=== PATIENT | female | born 1955 | race Caucasian/White ===

== ENCOUNTER 2016-09-30 16:13 | Emergency (ER) | payer OTHER ==
[~2016-09-30] VITALS: Ht 160 cm; Wt 110.7 kg
[~2016-09-30 16:13] MED LIST: ALPR1TAB6 PO; AMIT25TA PO; AMLO5TAB2 PO; ATOR40TA59 PO; BUDE10.2 IH; CARI350T PO; CARI350T14 PO; CEFP100T PO; CLIN-44 PO; CYAN10002 IJ; DOXY100C14 PO; ERYT1OIN6 EACHEYE; EZET10TA3 PO; FLUO40CA2 PO; FLUT16SP NS; HYDR1TAB26 PO; LIDOCAINE TOPICAL TOP; MELA1TAB11 PO; METO25TA9 PO; NICO1PAT25 TD; OMEP20TA PO; OXYC-323 PO; OXYC15TA PO; PRED20TA PO; Promethazine Hcl/Codeine PO; SODI1TAB11 PO; SULF15DR5 EACHEYE; SULF1TAB24 PO; TEMA30CA PO; VENTOLIN HFA18 GM IH; VENTOLIN HFA18 GM INH; WARF1TAB PO; ZOLP5TAB5 PO
[2016-09-30] MEDS ORDERED: LIDOCAINE 1%/EPI 1:100,000 20 ML VIAL. INJ ONE (17:30)
[2016-09-30] MEDS ORDERED: OXYCODONE IR 5 MG TABLET. PO ONE (18:45)
[2016-09-30 19:00] VITALS: BP 106/54
--- NOTE | 2016-09-30 19:02 | PHYS DOC ---
Past Medical History Past Medical History: CAD, Cancer, [place] Additional Past Medical Histor: CARDIAC ISSUES, RADIATION AND CHEMO FOR RIGHT LUNG CA Past Surgical History: Coronary Bypass Surgery, Knee Replacement Alcohol Use: None Drug Use: None Adult General Chief Complaint Chief Complaint: MECHANICAL FALL HPI HPI Patient is a 61 year old female who presents with for left elbow and forearm lacerations, pain and bleeding; and bilateral knee pain after trip and fall at a store. She tripped on a floor mat. She notes pain to bilateral anterior knees that are achy, constant; but she was able to walk without difficulty. She notes falling into a wall and hitting her forehead and right shoulder, but has no headache or shoulder pain. She denies LOC, neck pain, vision changes, dizziness, back pain, chest pain, dyspnea, numbness, tingling, weakness. Tdap up to date. Review of Systems Review of Systems Constitutional: Denies fever or chills [] Eyes: Denies change in visual acuity, redness, or eye pain [] HENT: Denies nasal congestion or sore throat [] Respiratory: Denies cough or shortness of breath [] Cardiovascular: No additional information not addressed in HPI [] GI: Denies abdominal pain, nausea, vomiting, bloody stools or diarrhea [] : Denies dysuria or hematuria [] Musculoskeletal: Denies back pain or joint pain [] Integument: Denies rash or skin lesions [] Neurologic: Denies headache, focal weakness or sensory changes [] Endocrine: Denies polyuria or polydipsia [] Current Medications Current Medications Current Medications Medications (Trade) Dose Ordered Sig/Claudette Start Time Stop Time Status Last Admin Dose Admin Lidocaine/ Epinephrine (Xylocaine 1%-Epi 1:100,000) 20 ml 1X ONCE 09/30/16 17:30 09/30/16 17:31 DC 09/30/16 18:21 20 ML Oxycodone HCl (Roxicodone) 5 mg 1X ONCE 09/30/16 18:45 09/30/16 18:46 DC 09/30/16 18:41 5 MG Allergies Allergies Allergies Coded Allergies Type Severity Reaction Last Updated Verified tramadol Allergy Severe Seizures 09/04/16 Yes Sulfa (Sulfonamide Antibiotics) Allergy Intermediate Itching & GI upset Yes lorazepam Allergy Intermediate Hives 09/04/16 Yes propoxyphene napsylate Allergy Intermediate Hives & GI upset 09/04/16 Yes I S O L A T I O N *CONTACT* Allergy Unknown 09/04/16 Yes morphine Adverse Reaction Severe 09/04/16 Yes fluticasone propionate Adverse Reaction Intermediate Anxious 09/04/16 Yes ibuprofen Adverse Reaction Intermediate NAUSEA/VOMITING 09/04/16 Yes salmeterol xinafoate Adverse Reaction Intermediate Anxious 09/04/16 Yes Physical Exam Physical Exam Constitutional: Well developed, well nourished, no acute distress, non-toxic appearance. [] HENT: Normocephalic, atraumatic, bilateral external ears normal, oropharynx moist, no oral exudates, nose normal. [] Eyes: PERRLA, EOMI, conjunctiva normal, no discharge. [] Neck: Normal range of motion, no tenderness, supple. [] Cardiovascular:Heart rate regular rhythm [] Lungs & Thorax: Bilateral breath sounds clear to auscultation [] Abdomen: Bowel sounds normal, soft, no tenderness. [] Skin: Warm, dry, no erythema, no rash. [] Back: No tenderness, no CVA tenderness. [] Extremities: No bony tenderness, ROM intact at all joints. Has some ecchymosis to left anterior knee and left elbow. Left forearm with 4 cm of abrasion overlying 2 cm gaping laceration, left elbow with 4cm L shaped laceration. Intact distal pulses. Sensation intact to light touch in all 4 limbs grossly. Neurologic: Alert and oriented X 3, normal motor function, normal sensory function, no focal deficits noted. Ambulatory with a steady gait. [] Psychologic: Affect normal, judgement normal, mood normal. [] Current Patient Data Vital Signs Vital Signs Date Time Temp Pulse Resp B/P Pulse Ox O2 Delivery O2 Flow Rate FiO2 09/30/16 19:00 86 20 106/54 97 Room Air 09/30/16 16:13 97.8 97.8 Course & Med Decision Making Course & Med Decision Making Pertinent Labs and Imaging studies reviewed. (See chart for details) Lacerations repaired without complication. Recommended CT head for minor head injury, but she refused. Anticipatory guidance given for wound care and likely development of delayed onset muscle soreness. Encouraged close follow up. Strict return precautions given. She understands and agrees with plan. Irma Disclaimer Irma Disclaimer This electronic medical record was generated, in whole or in part, using a voice recognition dictation system. Laceration Repair Lac Repair Indication: Left elbow and left forearm lacerations Procedure: The patient was placed in the appropriate position and anesthesia around the elbow laceration was 4ml lidocaine with epinephrine, forearm laceration was 4 mL lidocaine with epinephrine. The area was then cleaned with pressure normal saline. The elbow laceration was closed with 4 simple interrupted sutures, Vicryl 3-0. The forearm laceration was closed with 3 simple interrupted sutures, Vicryl 3-0. The wound area was then dressed with nonadherent bandage. Total repaired wound length: 4 cm left elbow laceration; 2 cm left forearm laceration. The patient tolerated the procedure well. Complications: none. Departure Departure Impression: Primary Impression: Laceration of elbow Additional Impressions: Laceration of forearm Closed head injury Contusion, knee Disposition: 01 HOME, SELF-CARE Condition: STABLE Referrals: BARBY MARIE MD (PCP) Patient Instructions: Sutured Wound Care, [id number] Additional Instructions: Your stitches need to be removed within 14 days. Follow-up with your primary care doctor. Return for any concerns. Problem Qualifiers Primary Impression: Laceration of elbow Encounter type: initial encounter Laterality: left Qualified Code: S51.012A - Laceration without foreign body of left elbow, initial encounter Additional Impressions: Laceration of forearm Encounter type: initial encounter Laterality: left Qualified Code: S51.812A - Laceration without foreign body of left forearm, initial encounter Closed head injury Encounter type: initial encounter Qualified Code: S09.90XA - Unspecified injury of head, initial encounter Contusion, knee Encounter type: initial encounter Laterality: unspecified laterality Qualified Code: S80.00XA - Contusion of unspecified knee, initial encounter Ruth CAMACHO MD Sep 30, 2016 19:02
== END 2016-09-30 19:15 | disposition home or self-care (01) ==
LOC: EDSEX 16:13 → ER 16:13
DX: S51.012A Laceration without foreign body of left elbow, initial encounter (principal); S51.812A Laceration without foreign body of left forearm, initial encounter; S80.02XA Contusion of left knee, initial encounter; S09.90XA Unspecified injury of head, initial encounter; I25.10 Atherosclerotic heart disease of native coronary artery without angina pectoris; I25.2 Old myocardial infarction; Z95.1 Presence of aortocoronary bypass graft; W01.0XXA Fall on same level from slipping, tripping and stumbling without subsequent striking against object, initial encounter; Y93.89 Activity, other specified; Y99.8 Other external cause status; Y92.89 Other specified places as the place of occurrence of the external cause; Z88.2 Allergy status to sulfonamides; Z88.6 Allergy status to analgesic agent; Z88.5 Allergy status to narcotic agent; Z88.8 Allergy status to other drugs, medicaments and biological substances; Z91.041 Radiographic dye allergy status
CPT/HCPCS: 12002; 99284; J3490

== ENCOUNTER → 2016-10-27 | Outpatient (CLI) | payer OTHER ==
[~2016-10-27] VITALS: Ht 160 cm; Wt 108.9 kg
[~2016-10-27] MED LIST changes: +ALBU2.5V14 NEB; +BUPIVACAINE 0.5% 50 ML VIAL. INJ ONE; +IOHEXOL 300 MG/ML 10ML VIAL. IJ ONE; +MULT-208 PO; -WARF1TAB PO; +WARF1TAB74 PO; +methylPREDNISolone ACETATE 80 MG/ML VIAL. IM ONE; +potassium PO
[2016-10-27 12:19] VITALS: BP 123/62
--- NOTE | 2016-10-27 15:05 | RAD ---
Fluoroscopically guided right hip joint injection, 10/27/2016: History: Hip pain Under local anesthesia, aseptic conditions and fluoroscopic guidance a 22-gauge spinal needle was passed into the right hip joint via an anterior approach. A small amount of iodinated contrast material was injected to confirm intra-articular positioning following which 80 mg of Depo-Medrol mixed with 4 cc of 0.5% Sensorcaine was injected into the joint as requested. The spinal needle was then removed and hemostasis obtained. One fluoroscopic spot image was recorded. 0.6 minutes of fluoroscopy time were utilized. The patient tolerated the procedure well and left the department in good condition.
--- NOTE | 2016-10-27 15:32 | RAD ---
DATE: 10/27/2016 EXAM: DIGITAL SCREEN BILAT W/CAD HISTORY: Routine screening COMPARISON: None available this is dictated as a baseline exam. This study was interpreted with the benefit of Computerized Aided Detection (CAD). FINDINGS: Breast Density: FATTY The Breast Parenchyma is primarily fatty replaced. Breast parenchyma level density A.. There are no dominant suspicious masses, suspicious microcalcifications or evidence of architectural distortion. Benign-appearing calcification identified in the right breast IMPRESSION: Benign findings BI-RADS CATEGORY: 2 BENIGN FINDING RECOMMENDED FOLLOW-UP: 12M 12 MONTH FOLLOW-UP PQRS compliance statement: Patient information was entered into a reminder system with a target due date 10/27/2017 for the next mammogram. Mammography is a sensitive method for finding small breast cancers, but it does not detect them all and is not a substitute for careful clinical examination. A negative mammogram does not negate a clinically suspicious finding and should not result in delay in biopsying a clinically suspicious abnormality. "Our facility is accredited by the [employer] Mammography Program."
== END | disposition home or self-care (01) ==
LOC: RAD 16:04
PROVIDERS: ATTEND Internal Medicine
DX: Z12.31 Encounter for screening mammogram for malignant neoplasm of breast (principal); M25.551 Pain in right hip
CPT/HCPCS: 20610; 77002; G0202; J1040; J3490; Q9967; 77067

== ENCOUNTER → 2017-06-15 | Outpatient (CLI) | payer MEDICARE, OTHER | END | disposition home or self-care (01) | LOC: CT 14:09 | DX: C34.90 Malignant neoplasm of unspecified part of unspecified bronchus or lung (principal); C34.92 Malignant neoplasm of unspecified part of left bronchus or lung (principal); I25.10 Atherosclerotic heart disease of native coronary artery without angina pectoris; J47.9 Bronchiectasis, uncomplicated; J90 Pleural effusion, not elsewhere classified; M47.899 Other spondylosis, site unspecified | CPT/HCPCS: 71250 ==

== ENCOUNTER 2017-09-09 22:05 | Emergency (ER) | payer OTHER, MEDICARE ==
[2017-09-09 22:44] LABS: ADD MAN DIFF? NO
[2017-09-09 22:46] LABS: BASO # 0.1 x10^3/uL (0.0-0.2); BASO % 1 % (0-3); EOS # 0.2 x10^3/uL (0.0-0.7); EOS % 3 % (0-3); HEMATOCRIT 43.6 % (36.0-47.0); HEMOGLOBIN 14.3 g/dL (12.0-15.5); LYMPH # 1.3 x10^3/uL (1.0-4.8); LYMPH % 18 % (24-48); MEAN CORPUSCULAR HEMOGLOBIN 30 pg (25-35); MEAN CORPUSCULAR HGB CONC 33 g/dL (31-37); MEAN CORPUSCULAR VOLUME 90 fL (79-100); MONO # 0.5 x10^3/uL (0.0-1.1); MONO % 7 % (0-9); NEUT # 5.4 x10^3uL (1.8-7.7); NEUT % 72 % (31-73); PLATELET COUNT 307 x10^3/uL (140-400); RED BLOOD COUNT 4.85 x10^6/uL (3.50-5.40); RED CELL DISTRIBUTION WIDTH 14.3 % (11.5-14.5); WHITE BLOOD COUNT 7.5 x10^3/uL (4.0-11.0)
[2017-09-09 22:57] LABS: ANION GAP 10 (6-14); BLOOD UREA NITROGEN 10 mg/dL (7-20); BUN/CREATININE RATIO 11 (6-20); CALCIUM 8.9 mg/dL (8.5-10.1); CARBON DIOXIDE 30 mmol/L (21-32); CHLORIDE 102 mmol/L (98-107); CREATININE 0.9 mg/dL (0.6-1.0); GFR 63.7; GLUCOSE 101 mg/dL (70-99); POTASSIUM 4.1 mmol/L (3.5-5.1); SODIUM 142 mmol/L (136-145)
[2017-09-09 23:02] LABS: ETHANOL < 10 mg/dL (0-10)
[2017-09-09 23:03] LABS: ALBUMIN 3.4 g/dL (3.4-5.0); ALBUMIN/GLOBULIN RATIO 0.9 (1.0-1.7); ALK PHOS 146 U/L (46-116); ALT (SGPT) 29 U/L (14-59); AST (SGOT) 21 U/L (15-37); TOTAL BILIRUBIN 0.3 mg/dL (0.2-1.0)
[2017-09-09 23:06] LABS: TROPONINI < 0.017 ng/mL (0.000-0.055)
[2017-09-09 23:15] LABS: BARBITURATES NEG (NEG); BENZODIAZEPINES POS (NEG); CANNABINOIDS NEG (NEG); COCAINE NEG (NEG); METHADONE NEG (NEG); OPIATES NEG (NEG); PHENCYCLIDINE NEG (NEG)
[2017-09-09 23:19] LABS: AMPHETAMINE/METHAMPHETAMINE NEG (NEG); ETHANOL, URINE NEG (NEG)
[2017-09-09 23:20] LABS: CKMB MASS < 0.5 ng/mL (0.0-3.6); CREATINE KINASE 62 U/L (26-192)
[2017-09-09 23:20] LABS: NT-PRO BNP 446 pg/mL (0-124)
[2017-09-09 23:29] LABS: BILIRUBIN,URINE NEGATIVE (NEG); CLARITY,URINE CLOUDY; COLOR,URINE YELLOW; GLUCOSE,URINE NEGATIVE (NEG); NITRITE,URINE POSITIVE (NEG); PH,URINE 6.5; PROTEIN,URINE NEGATIVE (NEG-TRACE); UROBILINOGEN,URINE 0.2 mg/dL (0.2 mg/dL)
[2017-09-09 23:34] LABS: BACTERIA,URINE MANY /HPF (0-FEW); RBC,URINE 0 /HPF (0-2); SQUAMOUS EPITHELIAL CELL,UR FEW /LPF
[2017-09-10 08:51] LABS: TROPONIN BY ISTAT 0.01 ng/ml (<0.08)
== END 2017-09-10 00:02 | disposition home or self-care (01) ==
LOC: ER 09-10 00:02
DX: S00.83XA Contusion of other part of head, initial encounter (principal); G89.29 Other chronic pain; R68.84 Jaw pain; M25.531 Pain in right wrist; M25.551 Pain in right hip; M25.561 Pain in right knee; I25.10 Atherosclerotic heart disease of native coronary artery without angina pectoris; J44.9 Chronic obstructive pulmonary disease, unspecified; F17.210 Nicotine dependence, cigarettes, uncomplicated; Z95.1 Presence of aortocoronary bypass graft; Z88.2 Allergy status to sulfonamides; Z88.5 Allergy status to narcotic agent; Z88.8 Allergy status to other drugs, medicaments and biological substances; Z91.041 Radiographic dye allergy status; W01.0XXA Fall on same level from slipping, tripping and stumbling without subsequent striking against object, initial encounter; Y93.89 Activity, other specified; Y99.8 Other external cause status; Y92.89 Other specified places as the place of occurrence of the external cause
CPT/HCPCS: 36415; 51701; 70450; 70486; 71045; 72125; 73110; 80053; 80307; 81001; 82553; 83880; 84484; 85025; 87086; 87186; 93005; 99285-25; G0480

== ENCOUNTER → 2017-12-11 | Outpatient (CLI) | payer OTHER | END | disposition home or self-care (01) | LOC: US 12:46 | DX: E04.2 Nontoxic multinodular goiter (principal); I10 Essential (primary) hypertension; E78.5 Hyperlipidemia, unspecified | CPT/HCPCS: 76536 ==

== ENCOUNTER 2018-03-10 02:00 | Inpatient (IN) | payer OTHER ==
[~2018-03-10] VITALS: Ht 165.1 cm; Wt 126.6 kg
[~2018-03-10 02:00] MED LIST changes: -ALBUTEROL SULFATE 2.5 MG/3 ML NEBU. ONE; -ALPR0.5T PO; -DOXE10CA PO; -DOXY100C2 PO; -IPRATROPIUM BROMIDE 0.5 MG/2.5 ML NEBU. ONE; -MIRT15TA3 PO; -PRED50TA PO; -vitamin b12
[2018-03-10 02:52] LABS: BASO # 0.1 x10^3/uL (0.0-0.2); BASO % 1 % (0-3); EOS # 0.2 x10^3/uL (0.0-0.7); EOS % 3 % (0-3); HEMATOCRIT 29.2 % (36.0-47.0); HEMOGLOBIN 9.3 g/dL (12.0-15.5); LYMPH # 0.8 x10^3/uL (1.0-4.8); LYMPH % 11 % (24-48); MEAN CORPUSCULAR HEMOGLOBIN 25 pg (25-35); MEAN CORPUSCULAR HGB CONC 32 g/dL (31-37); MEAN CORPUSCULAR VOLUME 78 fL (79-100); MONO # 0.5 x10^3/uL (0.0-1.1); MONO % 6 % (0-9); NEUT # 6.3 x10^3uL (1.8-7.7); NEUT % 80 % (31-73); PLATELET COUNT 306 x10^3/uL (140-400); RED BLOOD COUNT 3.77 x10^6/uL (3.50-5.40); RED CELL DISTRIBUTION WIDTH 16.5 % (11.5-14.5); WHITE BLOOD COUNT 7.9 x10^3/uL (4.0-11.0)
[2018-03-10] MEDS ORDERED: ALBUTEROL SULFATE 2.5 MG/3 ML NEBU. CONT NEB ONE (03:00)
[2018-03-10] MEDS ORDERED: IPRATROPIUM BROMIDE 0.5 MG/2.5 ML NEBU. NEB ONE (03:00)
[2018-03-10 03:03] LABS: CALCIUM 8.5 mg/dL (8.5-10.1); CREATININE 0.8 mg/dL (0.6-1.0); GFR 72.9; POTASSIUM 3.5 mmol/L (3.5-5.1)
[2018-03-10 03:09] LABS: ALBUMIN/GLOBULIN RATIO 0.8 (1.0-1.7); TOTAL BILIRUBIN 0.3 mg/dL (0.2-1.0); TOTAL PROTEIN 6.6 g/dL (6.4-8.2)
[2018-03-10 03:53] LABS: BASE EXCESS ABG 5 mmol/L (-3-3); HCO3 ABG 30 mmol/L (21-28); PCO2 ABG 51 mmHg (35-46); PO2 ABG 87 mmHg (65-108); SAT O2 ABG 96 % (92-99)
[2018-03-10] MEDS ORDERED: FUROSEMIDE 40 MG/4 ML VIAL. IVP ONE (04:00)
[2018-03-10] MEDS ORDERED: ONDANSETRON PF 4 MG/2 ML VIAL. IV PRN (04:00)
[2018-03-10 04:04] LABS: FIO2 ABG 28
[2018-03-10] MEDS ORDERED: ONDANSETRON PF 4 MG/2 ML VIAL. IV ONE (04:30)
[2018-03-10] MEDS ORDERED: fentaNYL PF VIAL 100 MCG/2 ML VIAL IV ONE (04:30)
--- NOTE | 2018-03-10 04:34 | PHYS DOC ---
Past Medical History Past Medical History: CAD, Cancer, [place] Additional Past Medical Histor: CARDIAC ISSUES, RADIATION AND CHEMO FOR RIGHT LUNG CA, CHRONIC BACK PAIN Past Surgical History: Coronary Bypass Surgery, Knee Replacement Alcohol Use: None Drug Use: None Adult General Chief Complaint Chief Complaint: SHORTNESS OF BREATH HPI HPI Patient is a 62 year old female with history of COPD, congestive heart failure and remote history of lung cancer presents with progressive shortness of breath , productive cough yellow sputum dyspnea with exertion while supine for the past 2 days. denies nausea, vomiting, fever chills and sweats. Denies increased leg pain or swelling. Patient is an occasional smoker. Limited improvement with inhalers at home.[] Review of Systems Review of Systems ROS asp erp HPI All other systems were reviewed and found to be within normal limits, except as documented in this note. Current Medications Current Medications Current Medications Medications (Trade) Dose Ordered Sig/Claudette Start Time Stop Time Status Last Admin Dose Admin Albuterol Sulfate (Ventolin Neb Soln) 10 mg 1X ONCE 03/10/18 03:00 03/10/18 03:01 DC 03/10/18 03:00 10 MG Albuterol/ Ipratropium (Duoneb) 3 ml RTQID 03/10/18 08:00 03/11/18 07:59 Fentanyl Citrate (Fentanyl 2ml Vial) 25 mcg 1X ONCE 03/10/18 04:30 03/10/18 04:31 Furosemide (Lasix) 20 mg [id number] 03/10/18 09:00 Ipratropium Foss (Atrovent) 1 mg 1X ONCE 03/10/18 03:00 03/10/18 03:01 DC 03/10/18 03:00 1 MG Ondansetron HCl (Zofran) 4 mg 1X ONCE 03/10/18 04:30 03/10/18 04:31 Allergies Allergies Allergies Coded Allergies Type Severity Reaction Last Updated Verified tramadol Allergy Severe Seizures 09/04/16 Yes Sulfa (Sulfonamide Antibiotics) Allergy Intermediate Itching & GI upset Yes lorazepam Allergy Intermediate Hives 09/04/16 Yes propoxyphene napsylate Allergy Intermediate Hives & GI upset 09/04/16 Yes I S O L A T I O N *CONTACT* Allergy Unknown 09/04/16 Yes morphine Adverse Reaction Severe 09/04/16 Yes fluticasone propionate Adverse Reaction Intermediate Anxious 09/04/16 Yes ibuprofen Adverse Reaction Intermediate NAUSEA/VOMITING 09/04/16 Yes salmeterol xinafoate Adverse Reaction Intermediate Anxious 09/04/16 Yes Physical Exam Physical Exam Constitutional: Well developed, well nourished, no acute distress, non-toxic appearance. [] HENT: Normocephalic, atraumatic, bilateral external ears normal, oropharynx moist, no oral exudates, was hoarseness. [] Eyes: PERRLA, EOMI, conjunctiva normal, no discharge. [] Neck: Normal range of motion, no tenderness, supple, no stridor. [] Cardiovascular:Heart rate regular rhythm, no murmur [] Lungs & Thorax:, Mild tachypnea, diminished coarse breath sounds bilaterally with inspiratory and expiratory wheezes.[] Abdomen: Bowel sounds normal, soft, no tenderness, no masses, no pulsatile masses. [] Skin: Warm, dry, no erythema, no rash. [] Back: No tenderness, no CVA tenderness. [] Extremities: No tenderness, no cyanosis, no clubbing, ROM intact, no edema. [] Neurologic: Alert and oriented X 3, normal motor function, normal sensory function, no focal deficits noted. [] Psychologic: Affect normal, judgement normal, mood normal. [] Current Patient Data Vital Signs Vital Signs Date Time Temp Pulse Resp B/P (MAP) Pulse Ox O2 Delivery O2 Flow Rate FiO2 03/10/18 03:07 97 Nasal Cannula 2.0 03/10/18 02:15 97.8 85 20 118/60 (79) 97.8 Lab Values Laboratory Tests Test 03/10/18 02:20 03/10/18 02:42 White Blood Count 7.9 x10^3/uL (4.0-11.0) Red Blood Count 3.77 x10^6/uL (3.50-5.40) Hemoglobin 9.3 g/dL (12.0-15.5) L Hematocrit 29.2 % (36.0-47.0) L Mean Corpuscular Volume 78 fL (79-100) L Mean Corpuscular Hemoglobin 25 pg (25-35) Mean Corpuscular Hemoglobin Concent 32 g/dL (31-37) Red Cell Distribution Width 16.5 % (11.5-14.5) H Platelet Count 306 x10^3/uL (140-400) Neutrophils (%) (Auto) 80 % (31-73) H Lymphocytes (%) (Auto) 11 % (24-48) L Monocytes (%) (Auto) 6 % (0-9) Eosinophils (%) (Auto) 3 % (0-3) Basophils (%) (Auto) 1 % (0-3) Neutrophils # (Auto) 6.3 x10^3uL (1.8-7.7) Lymphocytes # (Auto) 0.8 x10^3/uL (1.0-4.8) L Monocytes # (Auto) 0.5 x10^3/uL (0.0-1.1) Eosinophils # (Auto) 0.2 x10^3/uL (0.0-0.7) Basophils # (Auto) 0.1 x10^3/uL (0.0-0.2) Sodium Level 145 mmol/L (136-145) Potassium Level 3.5 mmol/L (3.5-5.1) Chloride Level 104 mmol/L (98-107) Carbon Dioxide Level 33 mmol/L (21-32) H Anion Gap 8 (6-14) Blood Urea Nitrogen 12 mg/dL (7-20) Creatinine 0.8 mg/dL (0.6-1.0) Estimated GFR (Cockcroft-Gault) 72.9 BUN/Creatinine Ratio 15 (6-20) Glucose Level 99 mg/dL (70-99) Lactic Acid Level 0.9 mmol/L (0.4-2.0) Calcium Level 8.5 mg/dL (8.5-10.1) Total Bilirubin 0.3 mg/dL (0.2-1.0) Aspartate Amino Transferase (AST) 18 U/L (15-37) Alanine Aminotransferase (ALT) 20 U/L (14-59) Alkaline Phosphatase 125 U/L (46-116) H Troponin I Quantitative < 0.017 ng/mL (0.000-0.055) VM-Jdx-V-Type Natriuretic Peptide 3250 pg/mL (0-124) H Total Protein 6.6 g/dL (6.4-8.2) Albumin 3.0 g/dL (3.4-5.0) L Albumin/Globulin Ratio 0.8 (1.0-1.7) L O2 Saturation 96 % (92-99) Arterial Blood pH 7.39 (7.35-7.45) Arterial Blood pCO2 at Patient Temp 51 mmHg (35-46) H Arterial Blood pO2 at Patient Temp 87 mmHg (65-108) Arterial Blood HCO3 30 mmol/L (21-28) H Arterial Blood Base Excess 5 mmol/L (-3-3) H FiO2 28 Laboratory Tests 03/10/18 02:20 Laboratory Tests 03/10/18 02:20 EKG EKG [EKG: Reviewed] Radiology/Procedures Radiology/Procedures [Chest x-ray: Cardiomegaly with pulmonary vascular congestion.] Course & Med Decision Making Course & Med Decision Making Pertinent Labs and Imaging studies reviewed. (See chart for details) [Lasix, steroids, breathing treatment given. Patient requiring oxygen will admit to Dr. Nair's service] Dragon Disclaimer Dragon Disclaimer This electronic medical record was generated, in whole or in part, using a voice recognition dictation system. Departure Departure Impression: Primary Impression: COPD with exacerbation Additional Impression: CHF exacerbation Disposition: ADMITTED INPATIENT Admitting Physician: Marco Nair Condition: STABLE Referrals: MARCO NAIR MD (PCP) Problem Qualifiers MARISELAKATHY REED Mar 10, 2018 04:34
[2018-03-10 05:16] VITALS: BP 128/65
[2018-03-10] MEDS: IPRATRPIUM/ALBUTEROL 0.5/2.5MG 3 ML NEBU. NEB SCH ×5 (05:57→21:30)
[2018-03-10 07:33] VITALS: BP 106/37
[2018-03-10] MEDS ORDERED: MIRT15TA3 PO (07:41)
[2018-03-10] MEDS ORDERED: ALPR0.5T PO (07:41)
[2018-03-10] MEDS ORDERED: vitamin b12 (07:41)
[2018-03-10] MEDS ORDERED: DOXE10CA PO (07:41)
[2018-03-10] MEDS ORDERED: FUROSEMIDE 20 MG/2 ML VIAL. IVP SCH (09:00)
[2018-03-10] MEDS ORDERED: NON FORMULARY ITEM (Budesonide/Formoterol Fumarate (Symbicort 160-4.5 Mcg Inhaler) 2 PUFF) IH SCH (10:45)
[2018-03-10] MEDS ORDERED: ONDANSETRON ODT 4 MG TAB.RAPDIS. PO PRN (10:45)
[2018-03-10] MEDS ORDERED: ALPRAZolam 0.5 MG TABLET PO PRN (10:45)
[2018-03-10] MEDS ORDERED: PROMETH/CODEINE 6.25/10MG 5 ML SYRUP. PO PRN (11:00)
[2018-03-10] MEDS ORDERED: ALBUTEROL SULFATE 2.5 MG/3 ML NEBU. NEB PRN (11:00)
[2018-03-10 11:17] VITALS: BP 112/43
[2018-03-10] MEDS: EZETIMIBE 10 MG TABLET. PO SCH (11:39)
[2018-03-10] MEDS: MULTIVITAMIN with MINERAL TABLET. PO SCH (11:40)
[2018-03-10] MEDS: ENOXAPARIN 40 MG/0.4 ML SYRINGE. SQ SCH ×2 (11:40→21:17)
[2018-03-10] MEDS: PANTOPRAZOLE 40 MG TABLET.DR. PO SCH (11:40)
[2018-03-10] MEDS: FLUoxetine HCL 20 MG CAPSULE PO SCH (11:40)
[2018-03-10] MEDS: METOPROLOL SUCC 24HR ER 25 MG TAB.ER.24H. PO SCH (11:40)
--- NOTE | 2018-03-10 12:09 | PDOC ---
Provider Note Provider Note Pt seen.H&P dictated. #[id number]. BARBY MARIE MD Mar 10, 2018 12:09
[2018-03-10] MEDS ORDERED: IPRATRPIUM/ALBUTEROL 0.5/2.5MG 3 ML NEBU. NEB PRN (12:15)
--- NOTE | 2018-03-10 14:09 | HP ---
ADMIT DATE: 03/10/2018 LOCATION: [facility]. REASON FOR ADMISSION TO THE HOSPITAL: Shortness of breath, cough and wheezing, COPD with exacerbation. HISTORY OF PRESENT ILLNESS: The patient is a 62-year-old female patient known to me who has chronic COPD and she has history of coronary artery disease, bypass surgery. She has history of lung cancer, radiation treatment 5 years ago. She still continues to smoke, has cough with green phlegm, came to the Emergency Room, was having short of breath, was given breathing treatment with some improvement. Chest x-ray was done, shows some questionable infiltrate in the lung, was admitted to the hospital. PAST MEDICAL HISTORY: History of COPD, coronary artery disease, lung cancer, heart attack in the past, anxiety, depression. PAST SURGICAL HISTORY: Knee replacement, heart bypass surgery, radiation for lung cancer. ALLERGIES: TO SULFA, FLUTICASONE, IBUPROFEN, LORAZEPAM, MORPHINE, DARVOCET, SALMETEROL XINAFOATE. MEDICATIONS AT HOME: Albuterol 4 times daily, Xanax 0.5 q.6h., atorvastatin 40 mg daily, budesonide twice a day, Soma 350 mg 3 times daily, Zetia 10 mg daily, fluoxetine 40 mg daily, metoprolol 25 mg daily, multivitamin daily, omeprazole 20 mg daily, Zofran for nausea, oxycodone 50 mg 3 times daily, potassium 10 mEq daily, Phenergan with codeine cough syrup p.r.n., mirtazapine and doxepin, I am not sure she is taking those. She is on home oxygen at nighttime. PERSONAL HISTORY: Smoked for at least 30 years, cutting down, still smokes occasionally. Denies alcohol or street drugs. The patient is on chronic narcotic pain medications. FAMILY HISTORY: Positive for heart disease, lung problems. REVIEW OF SYMPTOMS: CARDIAC: No chest pain. GASTROINTESTINAL: No nausea or vomiting. RESPIRATORY: Complains of cough, sputum, wheezing and low grade fever. Rest of her systems reviewed and negative. PHYSICAL EXAMINATION: VITAL SIGNS: At the time of admission shows temperature 97, pulse 85, respirations 20, blood pressure 118/60, 95% on room air on 2 liters. HEENT: Head is atraumatic. Pupils equal. Oral cavity, congestion posterior pharynx. NECK: Supple. Thyroid not enlarged. JVD not elevated. CHEST: Asymmetrical, scar of heart surgery. CARDIOVASCULAR: S1, S2. LUNGS: Bilateral wheezing, both inspiratory, expiratory mostly on the posterior lungs. ABDOMEN: Soft, no mass palpable. EXTERNAL GENITALIA: No Jarvis. RECTAL: Deferred. EXTREMITIES: No calf tenderness, no edema. Pulses 1+. NEUROLOGIC: Moving all extremities. No focal deficits noted. LABORATORY DATA: Shows a white count 8, hemoglobin 9, platelets 306. Electrolytes sodium 145, potassium 3.5, chloride 104, bicarb 33, BUN 12, creatinine 0.8, glucose 99. LFTs normal. BNP was 30-50, pH 7.39, pCO2 51, pO2 87, bicarbonate 30, 96 saturation. Chest x-ray done, report is pending. EKG not done. FINAL IMPRESSION: 1. Chronic obstructive pulmonary disease with acute exacerbation. 2. Chronic hypercapnic respiratory failure, stable. 3. Coronary artery disease, history of bypass surgery. 4. History of lung cancer, had radiation treatment. 5. Chronic smoker. 6. Hypertension. 7. Hyperlipidemia. 8. Anxiety, depression. 9. Elevated BNP,?chf PLAN: At this time, admit to hospital, hydrate with IV fluids. Sputum cultures. Start on Rocephin, IV Solu-Medrol, DuoNeb 4 times daily. DVT prevention with Lovenox and see how the patient's condition improves. Echo and cardiology consult. BARBY MARIE MD DR: AUBREY/eda JOB#: [id number] / [id number] SELAM
[2018-03-10] MEDS: cefTRIAXone IV Push 1 GM VIAL. IVP SCH (14:41)
[2018-03-10] MEDS: IV NORMAL SALINE 1000ML BAG 1,000 ML IV SCH (14:41)
[2018-03-10] MEDS: oxyCODONE IR 5 MG TABLET PO PRN (14:42)
[2018-03-10] MEDS: methylPREDNISolone SOD SUCC PF 40 MG/ML VIAL. IV SCH ×2 (14:42→21:16)
[2018-03-10] MEDS: LACTOBACILLUS RHAMNOSUS GG 1 CAPSULE. PO SCH ×2 (14:42→21:15)
[2018-03-10] MEDS: CARISOPRODOL 350 MG TABLET PO SCH ×2 (14:42→21:21)
--- NOTE | 2018-03-10 14:53 | RAD ---
Chest, PA and Lateral: Technique: PA and lateral views of the chest were obtained. History: Pneumonia. Comparison: 09/09/2017. Findings: Unchanged heart size. There are patchy airspace opacities identified in the right hilar region, left hilar region and in the left lung base likely atelectasis or infiltrates with mild prominent appearing bilateral interstitial lung markings. IMPRESSION: Prominent appearing interstitial lung markings identified in the bilateral lungs probably chronic interstitial changes with airspace opacities in the right hilar, left hilar and left lung base likely atelectasis or infiltrates. Follow-up to resolution. Electronically signed by: Refugio Harris MD (03/10/2018 2:49 PM) [facility]
[2018-03-10 15:09] VITALS: BP 111/36
--- NOTE | 2018-03-10 17:04 | EKG ---
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
[2018-03-10 19:16] VITALS: BP 119/67
[2018-03-10] MEDS: ATORVASTATIN CALCIUM 40 MG TABLET. PO SCH (21:15)
[2018-03-10 22:58] VITALS: BP 137/78
[2018-03-11] MEDS: IV NORMAL SALINE 1000ML BAG 1,000 ML IV SCH (01:50)
[2018-03-11 03:21] VITALS: BP 98/64
[2018-03-11 04:41] LABS: BASO % 0 % (0-3); EOS % 0 % (0-3); HEMATOCRIT 28.2 % (36.0-47.0); HEMOGLOBIN 8.8 g/dL (12.0-15.5); LYMPH # 0.3 x10^3/uL (1.0-4.8); LYMPH % 4 % (24-48); MEAN CORPUSCULAR HEMOGLOBIN 24 pg (25-35); MEAN CORPUSCULAR HGB CONC 31 g/dL (31-37); MEAN CORPUSCULAR VOLUME 78 fL (79-100); MONO # 0.1 x10^3/uL (0.0-1.1); MONO % 1 % (0-9); NEUT # 6.8 x10^3uL (1.8-7.7); NEUT % 94 % (31-73); PLATELET COUNT 298 x10^3/uL (140-400); WHITE BLOOD COUNT 7.2 x10^3/uL (4.0-11.0)
[2018-03-11 04:57] LABS: CALCIUM 8.2 mg/dL (8.5-10.1); CREATININE 0.9 mg/dL (0.6-1.0); GFR 63.7; POTASSIUM 4.5 mmol/L (3.5-5.1)
[2018-03-11] MEDS: methylPREDNISolone SOD SUCC PF 40 MG/ML VIAL. IV SCH ×3 (06:00→21:09)
[2018-03-11 07:00] VITALS: BP 174/67
[2018-03-11] MEDS: PANTOPRAZOLE 40 MG TABLET.DR. PO SCH (07:36)
[2018-03-11] MEDS: oxyCODONE IR 5 MG TABLET PO PRN ×2 (07:40→21:09)
[2018-03-11] MEDS: IPRATRPIUM/ALBUTEROL 0.5/2.5MG 3 ML NEBU. NEB SCH ×4 (07:58→20:21)
[2018-03-11] MEDS ORDERED: POTASSIUM PO SCH (09:00)
[2018-03-11] MEDS: MULTIVITAMIN with MINERAL TABLET. PO SCH (09:12)
[2018-03-11] MEDS: CARISOPRODOL 350 MG TABLET PO SCH ×3 (09:12→21:09)
[2018-03-11] MEDS: EZETIMIBE 10 MG TABLET. PO SCH (09:12)
[2018-03-11] MEDS: LACTOBACILLUS RHAMNOSUS GG 1 CAPSULE. PO SCH ×2 (09:12→21:08)
[2018-03-11] MEDS: FLUoxetine HCL 20 MG CAPSULE PO SCH (09:12)
[2018-03-11] MEDS: METOPROLOL SUCC 24HR ER 25 MG TAB.ER.24H. PO SCH (09:12)
[2018-03-11] MEDS: ENOXAPARIN 40 MG/0.4 ML SYRINGE. SQ SCH ×2 (09:13→21:10)
[2018-03-11 09:19] LABS: % BANDS 1 % (0-9); % LYMPHS 4 % (24-48); % MONOS 1 % (0-10); % SEGS 94 % (35-66); PLT ESTIMATE ADEQUATE (ADEQUATE)
[2018-03-11 09:20] LABS: HYPOCHROMIA PRESENT
--- NOTE | 2018-03-11 09:32 | PDOC ---
PROGRESS NOTES Subjective Subjective feels better today Objective Objective Vital Signs Date Time Temp Pulse Resp B/P (MAP) Pulse Ox O2 Delivery O2 Flow Rate FiO2 03/11/18 09:17 97 Nasal Cannula 2.0 03/11/18 09:12 94 174/67 03/11/18 07:00 97.9 24 97.9 Intake and Output 03/11/18 07:00 Intake Total 780 ml Output Total 600 ml Balance 180 ml Intake Oral 780 ml Output Urine Total 600 ml Physical Exam Abdomen: Normal bowel sounds, Soft Heart: Normal S2 Extremities: No clubbing General: Alert HEENT: Atraumatic Lungs: Other (wheezing) MUSCULOSKELETAL: No deformity Neck: No JVD Neuro: Normal speech Psych/Mental Status: Mental status NL Skin: No breakdown Diagnosis Problem List Problems Medical Problems: (1) CHF exacerbation Status: Acute (2) COPD with exacerbation Status: Acute Assessment Assessment Problems Medical Problems: (1) CHF exacerbation Status: Acute (2) COPD with exacerbation Status: Acute FINAL IMPRESSION: 1. Chronic obstructive pulmonary disease with acute exacerbation. 2. Chronic hypercapnic respiratory failure, stable. 3. Coronary artery disease, history of bypass surgery. 4. History of lung cancer, had radiation treatment. 5. Chronic smoker. 6. Hypertension. 7. Hyperlipidemia. 8. Anxiety, depression. 9. Fiona BNP, ?chf PLAN: ECHO today cardiology consult iv steroids duoneb. iv rocephin. pt/ot At this time, admit to hospital, hydrate with IV fluids. Sputum cultures. Start on Rocephin, IV Solu-Medrol, DuoNeb 4 times daily. DVT prevention with Lovenox and see how the patient's condition improves. Plan Plan of Care Problems Medical Problems: (1) CHF exacerbation Status: Acute (2) COPD with exacerbation Status: Acute Comment Review of Relevant I have reviewed the following items norberto (where applicable) has been applied. Labs Laboratory Tests Test 03/11/18 03:55 White Blood Count 7.2 x10^3/uL (4.0-11.0) Red Blood Count 3.60 x10^6/uL (3.50-5.40) Hemoglobin 8.8 g/dL (12.0-15.5) Hematocrit 28.2 % (36.0-47.0) Mean Corpuscular Volume 78 fL (79-100) Mean Corpuscular Hemoglobin 24 pg (25-35) Mean Corpuscular Hemoglobin Concent 31 g/dL (31-37) Red Cell Distribution Width 17.0 % (11.5-14.5) Platelet Count 298 x10^3/uL (140-400) Neutrophils (%) (Auto) 94 % (31-73) Lymphocytes (%) (Auto) 4 % (24-48) Monocytes (%) (Auto) 1 % (0-9) Eosinophils (%) (Auto) 0 % (0-3) Basophils (%) (Auto) 0 % (0-3) Neutrophils # (Auto) 6.8 x10^3uL (1.8-7.7) Lymphocytes # (Auto) 0.3 x10^3/uL (1.0-4.8) Monocytes # (Auto) 0.1 x10^3/uL (0.0-1.1) Eosinophils # (Auto) 0.0 x10^3/uL (0.0-0.7) Basophils # (Auto) 0.0 x10^3/uL (0.0-0.2) Segmented Neutrophils % 94 % (35-66) Band Neutrophils % 1 % (0-9) Lymphocytes % 4 % (24-48) Monocytes % 1 % (0-10) Platelet Estimate Adequate (ADEQUATE) Hypochromasia Present Sodium Level 143 mmol/L (136-145) Potassium Level 4.5 mmol/L (3.5-5.1) Chloride Level 105 mmol/L (98-107) Carbon Dioxide Level 26 mmol/L (21-32) Anion Gap 12 (6-14) Blood Urea Nitrogen 17 mg/dL (7-20) Creatinine 0.9 mg/dL (0.6-1.0) Estimated GFR (Cockcroft-Gault) 63.7 Glucose Level 195 mg/dL (70-99) Calcium Level 8.2 mg/dL (8.5-10.1) Medications Current Medications Albuterol Sulfate (Ventolin Neb Soln) 2.5 mg PRN Q6HRS PRN NEB SHORTNESS OF BREATH; Start 03/10/18 at 11:00 Albuterol/ Ipratropium (Duoneb) 3 ml RTQID PRN NEB SHORTNESS OF BREATH; Start 03/10/18 at 12:15; Status UNV Alprazolam (Xanax) 0.5 mg PRN Q6HRS PRN PO ANXIETY / AGITATION; Start 03/10/18 at 10:45 Atorvastatin Calcium (Lipitor) 40 mg HS PO Last administered on 03/10/18at 21:15 ; Start 03/10/18 at 21:00 Carisoprodol (Soma) 350 mg TID PO Last administered on 03/11/18 09:12; Start 03/10/18 at 14:00 Ceftriaxone Sodium 1 gm/ Dextrose 50 ml @ 100 mls/hr Q24H IV ; Start 03/10/18 at 12:00; Status UNV Ceftriaxone Sodium (Rocephin) 1 gm Q24H IVP Last administered on 03/10/18at 14: 41; Start 03/10/18 at 13:00 Enoxaparin Sodium (Lovenox 40mg Syringe) 40 mg Q12HR SQ Last administered on 09:13; Start 03/10/18 at 11:30 EZETIMIBE (Zetia) 10 mg DAILY PO Last administered on 03/11/18 09:12; Start at 11:30 Fluoxetine HCl (PROzac) 40 mg DAILY PO Last administered on 03/11/18 09:12; Start 03/10/18 at 11:30 Lactobacillus Rhamnosus (Culturelle) 1 cap BID PO Last administered on 09:12; Start 03/10/18 at 13:00 Methylprednisolone Sodium Succinate (SOLU-Medrol 40MG VIAL) 40 mg Q8HRS IV Last administered on 03/11/18at 06:00; Start 03/10/18 at 14:00 Metoprolol Succinate (Toprol Xl) 25 mg DAILY PO Last administered on 03/11/18 09:12; Start 03/10/18 at 11:30 Multivitamins (Thera M Plus) 1 tab DAILY PO Last administered on 03/11/18 09: 12; Start 03/10/18 at 11:30 Non-Formulary Medication (Budesonide/ Formoterol Fumarate (Symbicort 160-4.5 Mcg Inhaler)) 2 puff PRN BID IH ; Start 03/10/18 at 10:45; Status UNV Non-Formulary Medication ([potassium] ) 1 tab DAILY PO ; Start 03/11/18 at 09:00 ; Status UNV Ondansetron HCl (Zofran Odt) 4 mg PRN BID PRN PO NAUSEA/VOMITING; Start at 10:45 Oxycodone HCl (Roxicodone) 15 mg PRN TID PRN PO PAIN Last administered on at 07:40; Start 03/10/18 at 11:00 Pantoprazole Sodium (Protonix) 40 mg DAILYAC PO Last administered on 03/11/18at 07:36; Start 03/10/18 at 11:30 Promethazine HCl/ Codeine (Phenergan With Codeine Oral Syrup) 5 ml PRN Q6HRS PRN PO COUGH; Start 03/10/18 at 11:00 Sodium Chloride 1,000 ml @ 75 mls/hr [id number] IV Last administered on at 01:50; Start 03/10/18 at 12:30 Vitals/I & O Vital Sign - Last 24 Hours 03/10/18 03/10/18 03/10/18 03/10/18 11:15 11:17 11:40 14:42 Temp 97.9 97.9 Pulse 84 84 Resp 20 B/P (MAP) 112/43 (66) 112/43 Pulse Ox 92 92 O2 Delivery Nasal Cannula Nasal Cannula Nasal Cannula O2 Flow Rate 1.0 2.0 2.0 03/10/18 03/10/18 03/10/18 03/10/18 15:09 15:15 19:16 20:00 Temp 98.4 98.1 98.4 98.1 Pulse 93 82 Resp 22 18 B/P (MAP) 111/36 (61) 119/67 (84) Pulse Ox 93 96 O2 Delivery Nasal Cannula Nasal Cannula Nasal Cannula Nasal Cannula O2 Flow Rate 2.0 1.0 2.0 2.0 03/10/18 03/10/18 03/11/18 03/11/18 20:50 22:58 03:21 07:00 Temp 98.5 97.9 97.9 98.5 97.9 97.9 Pulse 80 94 94 Resp 18 18 24 B/P (MAP) 137/78 (97) 98/64 (75) 174/67 (102) Pulse Ox 96 96 96 91 O2 Delivery Nasal Cannula Room Air Nasal Cannula Nasal Cannula O2 Flow Rate 2.0 2.0 2.0 03/11/18 03/11/18 03/11/18 03/11/18 07:40 07:58 09:12 09:17 Pulse 94 B/P (MAP) 174/67 Pulse Ox 96 97 97 O2 Delivery Nasal Cannula Nasal Cannula Nasal Cannula O2 Flow Rate 2.0 2.0 2.0 Intake and Output 03/10/18 03/10/18 03/11/18 15:00 23:00 07:00 Intake Total 300 ml 480 ml Output Total 600 ml Balance -300 ml 480 ml BARBY MARIE MD Mar 11, 2018 09:32
[2018-03-11 11:00] VITALS: BP 114/51
--- NOTE | 2018-03-11 11:46 | PDOC2 ---
MICHAEL AGUILERA DYE MIXER 03/11/18 1146: CARDIAC CONSULT DATE OF CONSULT Date of Consult DATE: 03/11/18 TIME: 11:38 REASON FOR CONSULT Reason for Consult: CHF, History of CABG REFERRING PHYSICIAN Referring Physician: Dr. Nair SOURCE Source: Chart review, Patient HISTORY OF PRESENT ILLNESS HISTORY OF PRESENT ILLNESS This is a 62 yo female who presented with complaints of shortness of breath. Reports having an episode of nausea and vomiting last week; inhaled some emesis. Breathing has been worse since. SOA has been progressively worsening. Has cough productive of green sputum. Denies any fevers/chills, chest pain, dizziness, diaphoresis, or palpitations. Orthopnea at base. Despite history of COPD and lung CA s/p chemo and radiation, continues to smoke 1/2 ppd. Additionally, has a history of CAD s/p CABG in 1995. 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 Most recent cardiac workup noted in 2013. Reports bilateral lower extremity edema x 2 months along with fatigue. PAST MEDICAL HISTORY Cardiovascular: CAD (s/p CABG), CHF, HTN, MD, Hyperlipidemia Pulmonary: COPD, Other (lung CA s/p chemo and radiation) CENTRAL NERVOUS SYSTEM: Other (no pertinent hx) GI: GERD Psych: Anxiety, Depression Musculoskeletal: Osteoarthritis Infectious disease: No pertinent hx ENT: No pertinent hx Renal/: No pertinent hx Endocrine: No pertinent hx Dermatology: No pertinent hx PAST SURGICAL HISTORY Past Surgical History: CABG (1995), Total hip replacement (left ), Total knee replacement (left ), Tonsillectomy FAMILY HISTORY Family History: High Cholestrol, Hypertension SOCIAL HISTORY Smoke: <1 pack per day ALCOHOL: none Drugs: None Lives: Alone (caregiver) CURRENT MEDICATIONS CURRENT MEDICATIONS Current Medications Medications (Trade) Dose Ordered Sig/Claudette Route PRN Reason Start Time Stop Time Status Last Admin Dose Admin Atorvastatin Calcium (Lipitor) 40 mg HS PO 03/10/18 21:00 03/10/18 21:15 Carisoprodol (Soma) 350 mg TID PO 03/10/18 14:00 03/11/18 09:12 Methylprednisolone Sodium Succinate (SOLU-Medrol 40MG VIAL) 40 mg Q8HRS IV 03/10/18 14:00 03/11/18 06:00 Sodium Chloride 1,000 ml @ 75 mls/hr [id number] IV 03/10/18 12:30 03/11/18 14:00 03/11/18 01:50 Ceftriaxone Sodium (Rocephin) 1 gm Q24H IVP 03/10/18 13:00 03/10/18 14:41 Lactobacillus Rhamnosus (Culturelle) 1 cap BID PO 03/10/18 13:00 03/11/18 09:12 ALLERGIES ALLERGIES: Coded Allergies: tramadol (Verified Allergy, Severe, Seizures, 09/04/16) Tolerates morphine, hydromorphone, and oxycodone Sulfa (Sulfonamide Antibiotics) (Verified Allergy, Intermediate, Itching & GI upset, 09/04/16) lorazepam (Verified Allergy, Intermediate, Hives, 09/04/16) propoxyphene napsylate (Verified Allergy, Intermediate, Hives & GI upset, 09/04/16) I S O L A T I O N *CONTACT* (Verified Allergy, Unknown, 09/04/16) ESBL + morphine (Verified Adverse Reaction, Severe, 09/04/16) Seizures fluticasone propionate (Verified Adverse Reaction, Intermediate, Anxious, 09/04/16) ibuprofen (Verified Adverse Reaction, Intermediate, NAUSEA/VOMITING, ) salmeterol xinafoate (Verified Adverse Reaction, Intermediate, Anxious, ) ROS Review of System 14 point ROS conducted with pertinent positives noted above in HPI. PHYSICAL EXAM General: Alert, Oriented X3, Cooperative, No acute distress HEENT: Atraumatic, Mucous membr. moist/pink Lungs: Other (expiratory wheezes throughout) Heart: Regular rate, Normal S1, Normal S2, Other (2/6 systolic murmur) Abdomen: Soft, No tenderness, Other (obese) Extremities: Normal pulses, Other (trace bilateral LE edema) Skin: No significant lesion Neuro: Normal speech, Sensation intact Psych/Mental Status: Mental status NL, Mood NL MUSCULOSKELETAL: No deformity VITALS VITALS Vital Signs Date Time Temp Pulse Resp B/P (MAP) Pulse Ox O2 Delivery O2 Flow Rate FiO2 03/11/18 11:00 98.0 82 20 114/51 (72) 96 Nasal Cannula 2.0 98.0 LABS Lab: Laboratory Tests Test 03/11/18 03:55 White Blood Count 7.2 x10^3/uL (4.0-11.0) Red Blood Count 3.60 x10^6/uL (3.50-5.40) Hemoglobin 8.8 g/dL (12.0-15.5) Hematocrit 28.2 % (36.0-47.0) Mean Corpuscular Volume 78 fL (79-100) Mean Corpuscular Hemoglobin 24 pg (25-35) Mean Corpuscular Hemoglobin Concent 31 g/dL (31-37) Red Cell Distribution Width 17.0 % (11.5-14.5) Platelet Count 298 x10^3/uL (140-400) Neutrophils (%) (Auto) 94 % (31-73) Lymphocytes (%) (Auto) 4 % (24-48) Monocytes (%) (Auto) 1 % (0-9) Eosinophils (%) (Auto) 0 % (0-3) Basophils (%) (Auto) 0 % (0-3) Neutrophils # (Auto) 6.8 x10^3uL (1.8-7.7) Lymphocytes # (Auto) 0.3 x10^3/uL (1.0-4.8) Monocytes # (Auto) 0.1 x10^3/uL (0.0-1.1) Eosinophils # (Auto) 0.0 x10^3/uL (0.0-0.7) Basophils # (Auto) 0.0 x10^3/uL (0.0-0.2) Segmented Neutrophils % 94 % (35-66) Band Neutrophils % 1 % (0-9) Lymphocytes % 4 % (24-48) Monocytes % 1 % (0-10) Platelet Estimate Adequate (ADEQUATE) Hypochromasia Present Sodium Level 143 mmol/L (136-145) Potassium Level 4.5 mmol/L (3.5-5.1) Chloride Level 105 mmol/L (98-107) Carbon Dioxide Level 26 mmol/L (21-32) Anion Gap 12 (6-14) Blood Urea Nitrogen 17 mg/dL (7-20) Creatinine 0.9 mg/dL (0.6-1.0) Estimated GFR (Cockcroft-Gault) 63.7 Glucose Level 195 mg/dL (70-99) Calcium Level 8.2 mg/dL (8.5-10.1) ECHOCARDIOGRAM ECHOCARDIOGRAM <Conclusion> The left ventricle is normal size. Left ventricular systolic function is normal. The Ejection Fraction is 55-60%. There is normal left ventricular wall thickness. There is no significant aortic valvular stenosis. There is mild aortic regurgitation on a technically difficult study. There is no significant mitral valve regurgitation. There is no mitral valve stenosis. There is trace tricuspid valve regurgitation. There is no significant pulmonic valvular regurgitation. There is no pericardial effusion. DATE: 06/17/13 1037 STRESS TEST STRESS TEST Conclusion 1. Moderate in size and moderate in intensity reversible apical anterior defect consistent with ischemia. No evidence of previous infarction appreciated. 2. Ejection fraction calcualted to be 76% with normal wall motion on gated SPECT images. 3. Abnormal nuclear imaging scan. 4. Findings consistent with an intermediate risk scan. DATE: 06/17/13 1135 HEART CATH HEART CATH Conclusion Left main: 20% lesion. LAD: mid 50% lesion. LCX: mid occlusion. RCA: proximal 25%. COTTON patent to a small LAD. SCG patent in skip fashion to the D1, OM2 and OM3. LV gram: normal LV systolic function. Continue medical treatment. Discussed with the patient. DATE: 06/19/13 1232 ASSESSMENT/PLAN ASSESSMENT/PLAN 1. Mild acute on chronic probable diastolic HF; NT Pro BNP elevated. CXR without significant vascular congestion. no aggressive diuresis warranted at this time. 2. Acute on chronic hypercapnic respiratory failure; CXR with infiltrates. IV antibiotics as per PCP 3. AE COPD; improved. 4. CAD s/p CABG; clinically stable 5. HTN; labile. monitor to assess need for therapy titratio 6. Lung CA s/p radiation and chemo 7. Tobaccoism; discussed/encouraged cessation Recommendations Check echo to assess LV function/presence of WMA Continue statin, check lipids. Add ASA Hold BB if wheezing persists. Consider ischemic evaluation when acute pulmonary issues resolve, possible as an outpatient. Supportive care. LESLY HOFFMAN MD 03/11/182128: CARDIAC CONSULT ASSESSMENT/PLAN ASSESSMENT/PLAN Patient seen and examined. Agree with DROP HAMMER SETTER UP's assessment and plan. Ac resp failure probably from AECOPD BNP elevated but patient does not have clinical evidence for CHF Chronic diastolic HF appears compensated CAD clinically stable 2D echo showed normal LV function We will consider ischemic workup as outpatient Thank you for your consultation MICHAEL AGUILERA APRN Mar 11, 2018 11:46 LESLY HOFFMAN MD Mar 11, 2018 21:29
[2018-03-11] MEDS: cefTRIAXone IV Push 1 GM VIAL. IVP SCH (13:11)
--- NOTE | 2018-03-11 13:48 | CARD ---
MR#: [id number] Date of Study: 03/11/2018 Ordering Physician: BARBY MARIE, Referring Physician: BARBY MARIE, Tech: [place] He APPROVED REPORT EXAM: Two-dimensional and M-mode echocardiogram with Doppler and color Doppler. Other Information Quality : AverageHR: 85bpm Rhythm : NSR INDICATION COPD Congestive Heart Failure 2D DIMENSIONS Left Atrium(2D)4.5 (1.6-4.0cm)IVSd1.4 (0.7-1.1cm) Aortic Root(2D)2.6 (2.0-3.7cm)LVDd4.6 (3.9-5.9cm) LVOT Diameter2.2 (1.8-2.4cm)PWd1.2 (0.7-1.1cm) IVSs2.5 (0.8-1.2cm) Aortic Valve AoV Peak Chris.200.4cm/sAoV VTI40.9cm AO Peak GR.16.1mmHgLVOT Peak Chris.101.3cm/s LVOT VTI 21.63cmAO Mean GR.9mmHg MARCIN (VMAX)1.12wf2NHR (VTI)1.95cm2 AI P 1/2 Adgt026jg Mitral Valve MV E Zwszxvqr363.0cm/sMV DECEL [id number] MV A Fkqsursg748.7cm/sMV CUT45gv E/A Ratio1.4MVA (PHT)3.82cm2 TDI E/Lateral E'20.8E/Medial E'19.5 Pulmonary Valve PV Peak Ynmjjezg62.9cm/sPV Peak Grad.3mmHg Tricuspid Valve TR P. Bqmszhcq471sj/sRAP IXVBJJZP12ayBh TR Peak Gr.50ksMiNPVT75jbCm Pulmonary Vein S1 Rmtzatkn58.1cm/sD2 Divuuqka27.2cm/s LEFT VENTRICLE The left ventricle is normal size. There is borderline to mild concentric left ventricular hypertroph y. The left ventricular systolic function is normal and the ejection fraction is within normal range. Left ventricular ejection fraction is 55-60%. There is normal LV segmental wall motion. Transmitral Doppler flow pattern is normal for age. RIGHT VENTRICLE The right ventricle is normal size. There is normal right ventricular wall thickness. The right ventr icular systolic function is normal. ATRIA The left atrium is borderline dilated. The right atrium size is normal. AORTIC VALVE The aortic valve is not well visualized. Doppler and Color Flow revealed mild aortic regurgitation. C alculated aortic valve area is 1.9 cm2 with maximum pressure gradient of 16 mmHg and mean pressure gr adient of 9 mmHg. Minimal aortic stenosis. MITRAL VALVE The mitral valve is thickened but opens well. There is no mitral valve stenosis. Doppler and Color-fl ow revealed mild to moderate mitral regurgitation. TRICUSPID VALVE The tricuspid valve is not well visualized. Doppler and Color Flow revealed trace tricuspid regurgita tion. PULMONIC VALVE The pulmonic valve is not well visualized. Doppler and Color Flow revealed no pulmonic valvular regur gitation. GREAT VESSELS The aortic root is normal in size. The IVC was not visualized. PERICARDIAL EFFUSION There is no evidence of significant pericardial effusion. Critical Notification Critical Value: No <Conclusion> The left ventricle is normal size. The left ventricular systolic function is normal and the ejection fraction is within normal range. Left ventricular ejection fraction is 55-60%. There is borderline to mild concentric left ventricular hypertrophy. Calculated aortic valve area is 1.9 cm2 with maximum pressure gradient of 16 mmHg and mean pressure g radient of 9 mmHg. Minimal aortic stenosis. Doppler and Color Flow revealed mild aortic regurgitation. Doppler and Color-flow revealed mild to moderate mitral regurgitation. Doppler and Color Flow revealed trace tricuspid regurgitation. Signed by : Enrrique Xiao MD Electronically Approved : 03/11/2018 13:46:52
[2018-03-11] MEDS: ASPIRIN ENTERIC COATED 81 MG TABLET.DR. PO SCH (17:44)
[2018-03-11] MEDS: BISMUTH SUBSALICYLATE 262 MG/15 ML ORAL.SUSP 236ML BOTTLE. PO PRN (17:45)
[2018-03-11 19:40] VITALS: BP 147/63
[2018-03-11] MEDS: ATORVASTATIN CALCIUM 40 MG TABLET. PO SCH (21:08)
[2018-03-11 23:13] VITALS: BP 125/59
[2018-03-12 00:49] LABS: CHOLESTEROL/HDL RATIO 2.1
[2018-03-12 03:46] VITALS: BP 125/46
[2018-03-12] MEDS: IPRATRPIUM/ALBUTEROL 0.5/2.5MG 3 ML NEBU. NEB SCH ×4 (06:11→20:28)
[2018-03-12] MEDS: methylPREDNISolone SOD SUCC PF 40 MG/ML VIAL. IV SCH ×3 (06:27→21:15)
[2018-03-12 07:00] VITALS: BP 144/67
[2018-03-12] MEDS: ASPIRIN ENTERIC COATED 81 MG TABLET.DR. PO SCH (09:07)
[2018-03-12] MEDS: LACTOBACILLUS RHAMNOSUS GG 1 CAPSULE. PO SCH ×2 (09:07→21:15)
[2018-03-12] MEDS: CARISOPRODOL 350 MG TABLET PO SCH ×2 (09:07→13:42)
[2018-03-12] MEDS: PANTOPRAZOLE 40 MG TABLET.DR. PO SCH (09:07)
[2018-03-12] MEDS: FLUoxetine HCL 20 MG CAPSULE PO SCH (09:08)
[2018-03-12] MEDS: EZETIMIBE 10 MG TABLET. PO SCH (09:08)
[2018-03-12] MEDS: MULTIVITAMIN with MINERAL TABLET. PO SCH (09:08)
[2018-03-12] MEDS: METOPROLOL SUCC 24HR ER 25 MG TAB.ER.24H. PO SCH (09:08)
[2018-03-12] MEDS: ENOXAPARIN 40 MG/0.4 ML SYRINGE. SQ SCH ×2 (09:09→21:15)
[2018-03-12] MEDS: BISMUTH SUBSALICYLATE 262 MG/15 ML ORAL.SUSP 236ML BOTTLE. PO PRN (09:22)
[2018-03-12] MEDS: oxyCODONE IR 5 MG TABLET PO PRN ×2 (09:22→17:57)
--- NOTE | 2018-03-12 09:25 | PDOC ---
PROGRESS NOTES Subjective Subjective still wheezing Objective Objective Vital Signs Date Time Temp Pulse Resp B/P (MAP) Pulse Ox O2 Delivery O2 Flow Rate FiO2 03/12/18 09:08 83 144/67 03/12/18 07:00 97.6 18 96 Nasal Cannula 2.0 97.6 Intake and Output 03/12/18 07:00 Intake Total 1900 ml Output Total 1200 ml Balance 700 ml Intake Oral 1900 ml Output Urine Total 1200 ml # Voids 2 Physical Exam Abdomen: Soft, No tenderness, Other (obese) Heart: Regular rate, Normal S1, Normal S2, Other (2/6 systolic murmur) Extremities: Normal pulses, Other (trace bilateral LE edema) General: Alert, Oriented X3, Cooperative, No acute distress HEENT: Atraumatic, Mucous membr. moist/pink Lungs: Other (expiratory wheezes throughout) MUSCULOSKELETAL: No deformity Neck: No JVD Neuro: Normal speech, Sensation intact Psych/Mental Status: Mental status NL, Mood NL Skin: No significant lesion Diagnosis Problem List Problems Medical Problems: (1) CHF exacerbation Status: Acute (2) COPD with exacerbation Status: Acute Assessment Assessment Problems Medical Problems: (1) CHF exacerbation Status: Acute (2) COPD with exacerbation Status: Acute FINAL IMPRESSION: 1. Chronic obstructive pulmonary disease with acute exacerbation. 2. Chronic hypercapnic respiratory failure, stable. 3. Coronary artery disease, history of bypass surgery. 4. History of lung cancer, had radiation treatment. 5. Chronic smoker. 6. Hypertension. 7. Hyperlipidemia. 8. Anxiety, depression. 9. Fiona BNP, ?chf PLAN: no clinical evidence of chf ECHO good LVF cardiology consult appreciated iv steroids duoneb. iv rocephin. pt/ot -pt refusing SNU pul consult At this time, admit to hospital, hydrate with IV fluids. Sputum cultures. Start on Rocephin, IV Solu-Medrol, DuoNeb 4 times daily. DVT prevention with Lovenox and see how the patient's condition improves. Plan Plan of Care Problems Medical Problems: (1) CHF exacerbation Status: Acute (2) COPD with exacerbation Status: Acute Comment Review of Relevant I have reviewed the following items norberto (where applicable) has been applied. Medications Current Medications Albuterol/ Ipratropium (Duoneb) 3 ml RTQID NEB Last administered on 03/12/18at 06:11; Start 03/11/18 at 16:15 Aspirin (Ecotrin) 81 mg [id number] PO Last administered on 03/12/18at 09:07; Start 03/11/18 at 14:30 Bismuth Subsalicylate (Pepto-Bismol) 262 mg QIDACHS PRN PO DYSPEPSIA; Start at 09:45 Vitals/I & O Vital Sign - Last 24 Hours 03/11/18 03/11/18 03/11/18 03/11/18 11:00 16:40 19:40 20:00 Temp 98.0 98.1 98.0 98.1 Pulse 82 83 Resp 20 18 B/P (MAP) 114/51 (72) 147/63 (91) Pulse Ox 96 97 97 O2 Delivery Nasal Cannula Nasal Cannula Nasal Cannula Nasal Cannula O2 Flow Rate 2.0 2.0 2.0 2.0 03/11/18 03/11/18 03/11/18 03/11/18 21:09 21:30 22:09 23:13 Temp 97.9 97.9 Pulse 88 Resp 18 16 B/P (MAP) 125/59 (81) Pulse Ox 97 95 94 94 O2 Delivery Nasal Cannula Nasal Cannula Nasal Cannula Nasal Cannula O2 Flow Rate 2.0 2.0 2.0 03/12/18 03/12/18 03/12/18 03/12/18 03:46 06:10 07:00 09:08 Temp 98.4 97.6 98.4 97.6 Pulse 85 83 83 Resp 18 18 B/P (MAP) 125/46 (72) 144/67 (92) 144/67 Pulse Ox 97 96 O2 Delivery Nasal Cannula Nasal Cannula Nasal Cannula O2 Flow Rate 2.0 2.0 2.0 Intake and Output 03/11/18 03/11/18 03/12/18 15:00 23:00 07:00 Intake Total 800 ml 1100 ml Output Total 1200 ml Balance 800 ml -100 ml BARBY MARIE MD Mar 12, 2018 09:25
[2018-03-12 10:41] VITALS: BP 132/77
[2018-03-12] MEDS: cefTRIAXone IV Push 1 GM VIAL. IVP SCH (13:42)
[2018-03-12 14:44] VITALS: BP 146/48
--- NOTE | 2018-03-12 15:33 | CONS ---
DATE OF CONSULTATION: PULMONARY CONSULTATION ATTENDING PHYSICIAN: Dr. Nair. REASON FOR CONSULTATION: Dyspnea. HISTORY OF PRESENT ILLNESS: The patient is a 62-year-old female who has a history of chronic COPD. She is not on home oxygen. She also has a history of lung cancer, which was treated with chemo and radiation less than 5 years ago. The patient presented to the hospital with 4-5 day history of shortness of breath. She also had a cough with green to dark brown sputum production. No fever, no chills, no headaches, no chest pains. No nausea or vomiting, no diarrhea, no dysuria, no focal weakness, no increased lower extremity edema. Her chest x-ray was reviewed. It showed cardiomegaly and prominent interstitial markings. As a result, I have been asked to see her for further evaluation. I have also reviewed her CT chest from June. At that time, she had a right hilar mass with some post-radiation changes. The patient was noted to be wheezing. PAST MEDICAL HISTORY: History of COPD, could be severe. Smoked for about 50 years. History of coronary artery disease, history of lung cancer status post chemo and radiation, last treatment she received was 2 years ago. PAST SURGICAL HISTORY: Knee replacement and coronary artery bypass surgery. ALLERGIES: SULFA, FLUTICASONE, IBUPROFEN, LORAZEPAM, MORPHINE, DARVOCET, SALMETEROL. MEDICATIONS: All reviewed as listed in the MRAD. REVIEW OF SYSTEMS: Twelve-point systems obtained. Pertinent positives discussed in my history of present illness, otherwise noncontributory. All systems that were negative were reviewed as well. SOCIAL HISTORY: Has been a smoker for 45+ years and still smokes occasionally. FAMILY HISTORY: Noncontributory to lungs. PHYSICAL EXAMINATION: VITAL SIGNS: Reviewed. Her blood pressure 146/48, afebrile, pulse ox 95% on 2 liters. NECK: Supple. LUNGS: With bilateral expiratory wheezing. CARDIOVASCULAR: Regular rate. ABDOMEN: Soft, obese. EXTREMITIES: With no pitting edema. LABORATORY DATA: Reviewed. White cell count 7.2, hemoglobin 8.8 and platelets are 298. ABGs with a pH of 7.39, pCO2 of 51, pO2 of 87 on 28% FiO2. IMPRESSION: 1. Acute hypoxic respiratory failure secondary to acute exacerbation of chronic obstructive pulmonary disease and possible interstitial pneumonia. 2. Abnormal chest x-ray with prominent interstitial markings. The patietn's clinical findings are not suggestive for congestive heart failure. Could be interstitial pneumonia. We will obtain noncontrast CT chest for further evaluation. 3. History of lung cancer, status post chemo and radiation. Last CT chest was in June of this year. At that time, she had a right hilar mass with post-radiation changes. We will obtain a followup CT chest. 4. Morbid obesity with a BMI of 46. 5. Compensated respiratory acidosis. RECOMMENDATIONS: 1. Continue with present oxygen with gradual weaning to keep saturation 92% and above. 2. DuoNebs to continue q.i.d. 3. IV Solu-Medrol. 4. Empiric antibiotic. 5. Noncontrast CT chest to assess for lung cancer as well as rule out interstitial pneumonia. 6. DVT prophylaxis with Lovenox. 7. Discussed with RN and we will follow along with you. MINDY VICENTE MD DR: CRISTOBAL/eda JOB#: [id number] / [id number]
--- NOTE | 2018-03-12 16:46 | RAD ---
CT of the chest without contrast, 03/12/2018: HISTORY: Lung cancer, pneumonia Noncontrast scans were obtained as requested and compared to a study from 06/15/2017. There is moderate calcific plaquing of the thoracic aorta and its branches including the coronary arteries. No mediastinal adenopathy is seen. There is a spiculated density at the right hilum with underlying narrowing and distortion of the central bronchi. This reportedly represents a treated neoplasm. Clear separation of possible residual tumor from vascular structures is not possible on these noncontrast scans. A similar appearance was present on 06/15/2017. Emphysematous changes are present in the upper lobes with small subpleural blebs. Several small peripheral linear and groundglass opacities in the lungs suggest scarring and/or atelectasis. There is a new small nonspecific peripheral groundglass opacity in the anterior aspect of the right middle lobe as seen on axial image 26 suggesting minimal atelectasis or inflammation. The small right pleural effusion has increased in volume since the previous study. There is now a trace amount of left-sided pleural fluid. A tiny density along the superior margin of the superior segment of the left lower lobe probably represents fissural extension of pleural fluid. There has been a previous median sternotomy. Mild scattered degenerative changes are present in the spine. IMPRESSION: 1. Spiculated right hilar mass similar to that seen on 06/15/2017, compatible with a treated lung malignancy. 2. Small right pleural effusion which has increased slightly in size. 3. A trace amount of left-sided pleural fluid has developed. 4. Emphysema with parenchymal scarring. 5. New minimal nonspecific peripheral right middle lobe groundglass opacity. PQRS Compliance Statement: One or more of the following individualized dose reduction techniques were utilized for this examination: 1. Automated exposure control 2. Adjustment of the mA and/or kV according to patient size 3. Use of iterative reconstruction technique Electronically signed by: Pedro Pablo Jimenez MD (03/12/2018 4:42 PM) [facility]
[2018-03-12 19:36] VITALS: BP 155/63
[2018-03-12] MEDS: ATORVASTATIN CALCIUM 40 MG TABLET. PO SCH (21:15)
[2018-03-12 23:02] VITALS: BP 158/75
[2018-03-13] MEDS: oxyCODONE IR 5 MG TABLET PO PRN ×2 (00:02→10:14)
[2018-03-13 03:35] VITALS: BP 166/89
[2018-03-13] MEDS: BISMUTH SUBSALICYLATE 262 MG/15 ML ORAL.SUSP 236ML BOTTLE. PO PRN (04:34)
[2018-03-13] MEDS: methylPREDNISolone SOD SUCC PF 40 MG/ML VIAL. IV SCH (06:03)
[2018-03-13 07:00] VITALS: BP 146/59
[2018-03-13] MEDS: IPRATRPIUM/ALBUTEROL 0.5/2.5MG 3 ML NEBU. NEB SCH ×2 (07:08→11:03)
[2018-03-13] MEDS ORDERED: FLUTICASONE 50MCG/NASAL SPRAY 16GM BOTTLE. NS SCH (09:00)
--- NOTE | 2018-03-13 09:56 | PDOC ---
PROGRESS NOTES Subjective Subjective doing well Objective Objective Vital Signs Date Time Temp Pulse Resp B/P (MAP) Pulse Ox O2 Delivery O2 Flow Rate FiO2 03/13/18 07:09 95 Nasal Cannula 2.0 03/13/18 07:00 97.7 76 16 146/59 (88) 97.7 Intake and Output 03/13/18 07:00 Intake Total 1100 ml Output Total 725 ml Balance 375 ml Intake Oral 1100 ml Output Urine Total 725 ml # Voids 5 Physical Exam Abdomen: Soft, No tenderness, Other (obese) Heart: Regular rate, Normal S1, Normal S2, Other (2/6 systolic murmur) Extremities: Normal pulses, Other (trace bilateral LE edema) General: Alert, Oriented X3, Cooperative, No acute distress HEENT: Atraumatic, Mucous membr. moist/pink Lungs: Other (clear lungs) MUSCULOSKELETAL: No deformity Neck: No JVD Neuro: Normal speech, Sensation intact Psych/Mental Status: Mental status NL, Mood NL Skin: No significant lesion Diagnosis Problem List Problems Medical Problems: (1) CHF exacerbation Status: Acute (2) COPD with exacerbation Status: Acute Assessment Assessment Problems Medical Problems: (1) CHF exacerbation Status: Acute (2) COPD with exacerbation Status: Acute FINAL IMPRESSION: 1. Chronic obstructive pulmonary disease with acute exacerbation. 2. Chronic hypercapnic respiratory failure, stable. 3. Coronary artery disease, history of bypass surgery. 4. History of lung cancer, had radiation treatment. 5. Chronic smoker. 6. Hypertension. 7. Hyperlipidemia. 8. Anxiety, depression. 9. Fiona BNP, ?chf PLAN: d/c home today. po prednisone+doxycycline ct chest-no lung infiltrates, scar from prior lung cancer no clinical evidence of chf ECHO good LVF cardiology consult appreciated iv steroids duoneb. pt/ot -pt refusing SNU pul consult appreciated Plan Plan of Care Problems Medical Problems: (1) CHF exacerbation Status: Acute (2) COPD with exacerbation Status: Acute Comment Review of Relevant I have reviewed the following items norberto (where applicable) has been applied. Labs Microbiology 03/10/18 - Final, Resulted 03/10/18 - Final, Resulted 03/10/18 - Final, Resulted 03/10/18 - Final, Resulted 03/10/18 - Final, Resulted 03/10/18 Gram Stain Evaluation - Final, Resulted 03/10/18 Sputum Culture, Resulted Pending Medications Current Medications Fluticasone Propionate (Flonase) 2 spray DAILY NS ; Start 03/13/18 at 09:00 Oxycodone HCl (Roxicodone) 15 mg PRN Q6HRS PRN PO SEVERE PAIN Last administered on 03/13/18at 00:02; Start 03/12/18 at 15:30 Vitals/I & O Vital Sign - Last 24 Hours 03/12/18 03/12/18 03/12/18 03/12/18 10:41 11:16 12:00 14:44 Temp 97.7 97.8 97.7 97.8 Pulse 86 83 Resp 20 22 B/P (MAP) 132/77 (95) 146/48 (80) Pulse Ox 96 96 95 95 O2 Delivery Nasal Cannula Nasal Cannula Nasal Cannula Room Air O2 Flow Rate 2.0 2.0 2.0 03/12/18 03/12/18 03/12/18 03/12/18 16:32 17:57 19:27 19:36 Temp 98.4 98.4 Pulse 87 Resp 20 B/P (MAP) 155/63 (93) Pulse Ox 95 95 94 O2 Delivery Nasal Cannula Nasal Cannula Room Air O2 Flow Rate 2.0 2.0 2.0 03/12/18 03/12/18 03/12/18 03/13/18 20:05 20:29 23:02 01:12 Temp 97.5 97.5 Pulse 92 Resp 20 B/P (MAP) 158/75 (102) Pulse Ox 95 96 O2 Delivery Room Air Room Air Room Air Room Air 03/13/18 03/13/18 03/13/18 03:35 07:00 07:09 Temp 98.5 97.7 98.5 97.7 Pulse 85 76 Resp 20 16 B/P (MAP) 166/89 (114) 146/59 (88) Pulse Ox 94 98 95 O2 Delivery Room Air Room Air Nasal Cannula O2 Flow Rate 2.0 Intake and Output 03/12/18 03/12/18 03/13/18 15:00 23:00 07:00 Intake Total 800 ml 300 ml Output Total 725 ml Balance 75 ml 300 ml BARBY MARIE MD Mar 13, 2018 09:56
[2018-03-13] MEDS: FLUoxetine HCL 20 MG CAPSULE PO SCH (09:59)
[2018-03-13] MEDS ORDERED: PRED50TA PO (09:59)
[2018-03-13] MEDS ORDERED: DOXY100C2 PO (09:59)
[2018-03-13] MEDS: ASPIRIN ENTERIC COATED 81 MG TABLET.DR. PO SCH (10:00)
[2018-03-13] MEDS: EZETIMIBE 10 MG TABLET. PO SCH (10:00)
[2018-03-13] MEDS: CARISOPRODOL 350 MG TABLET PO SCH ×2 (10:00)
[2018-03-13] MEDS: MULTIVITAMIN with MINERAL TABLET. PO SCH (10:00)
[2018-03-13] MEDS: METOPROLOL SUCC 24HR ER 25 MG TAB.ER.24H. PO SCH (10:00)
[2018-03-13] MEDS: LACTOBACILLUS RHAMNOSUS GG 1 CAPSULE. PO SCH (10:00)
[2018-03-13] MEDS: PANTOPRAZOLE 40 MG TABLET.DR. PO SCH (10:00)
[2018-03-13] MEDS: ENOXAPARIN 40 MG/0.4 ML SYRINGE. SQ SCH (10:01)
[2018-03-13 11:00] VITALS: BP 131/63
--- NOTE | 2018-03-13 12:45 | PDOC ---
PULMONARY PROGRESS NOTES Subjective no soa Vitals Vital Signs Date Time Temp Pulse Resp B/P (MAP) Pulse Ox O2 Delivery O2 Flow Rate FiO2 03/13/18 11:04 Nasal Cannula 2.0 03/13/18 11:00 96.8 82 20 131/63 (85) 93 96.8 General: Alert, No acute distress HEENT: Other Lungs: Clear Cardiovascular: S1, S2 Abdomen: Soft, Non-tender Neuro Exam: Alert Extremities: Other (trace edema) Medications Active Scripts Medications Dose Route/Sig Max Daily Dose Days Date Category Dose Instructions Doxepin Hcl Unknown Strength Capsule Unknown Dose PO QHS 03/10/18 Reported Mirtazapine Unknown Strength Tablet Unknown Dose PO QHS 03/10/18 Reported Xanax (Alprazolam) 0.5 Mg Tablet 0.5 Mg PO PRN Q6HRS PRN 03/10/18 Reported [vitamin b12] 03/10/18 Reported Zofran Odt (Ondansetron) 4 Mg Tab.rapdis 4 Mg PO BID PRN 09/09/17 Rx Albuterol Sulfate Conc Neb Soln (Albuterol Sulfate) 2.5 Mg/0.5 Ml Vial.neb 1 Vial NEB BID PRN 10/27/16 Reported Multi-Day Vitamins (Multivitamin) 1 Each Tablet 1 Tab PO DAILY 10/27/16 Reported [potassium] 1 Tab PO DAILY 10/27/16 Reported [Promethazine Hcl/Codeine] 5 ML Syrup 5 Ml PO PRN Q6HRS PRN 10 08/26/16 Rx Metoprolol Succinate ( Xl ) (Metoprolol Succinate) 25 Mg Tab.er.24h 25 Mg PO DAILY 05/05/15 Reported LAST DOSE GIVEN: This morning NEXT DOSE DUE: Tomorrow morning TIME:9:00 a.m. Symbicort 160-4.5 Mcg Inhaler (Budesonide/Formoterol Fumarate) 10.2 Gm Hfa.aer.ad 2 Puff IH PRN BID 12/23/13 Reported Not given here-take as normally scheduled DATE:05-27-15 TIME:9:00 a.m. NEXT DOSE DUE: DATE:05-27-15 TIME:9:00 p.m. Zetia (Ezetimibe) 10 Mg Tablet 10 Mg PO DAILY 07/22/13 Reported LAST DOSE GIVEN: This morning NEXT DOSE DUE: Tomorrow morning TIME:9:00 p.m. Oxycodone Hcl 15 Mg Tablet 15 Mg PO TID PRN PRN 06/16/13 Reported Not given here Take again when needed TIME:1:00 p.m. NEXT DOSE DUE: DATE:05-28-15 TIME:5:00 p.m. Omeprazole 20 Mg Tablet.dr 20 Mg PO DAILYAC 06/16/13 Reported LAST DOSE GIVEN: This morning NEXT DOSE DUE: Tomorrow morning TIME:7:30 a.m. Fluoxetine Hcl 40 Mg Capsule 40 Mg PO DAILY08 06/16/13 Reported LAST DOSE GIVEN: This morning NEXT DOSE DUE: Tomorrow morning TIME:9:00 a.m. Carisoprodol 350 Mg Tablet 350 Mg PO TID 06/16/13 Reported LAST DOSE GIVEN: this morning NEXT DOSE DUE: this afternoon TIME:9:00 p.m. Atorvastatin Calcium 40 Mg Tablet 40 Mg PO HS 06/16/13 Reported LAST DOSE GIVEN: last night NEXT DOSE DUE: take again tonight TIME:9:[address] CHEST 1. Spiculated right hilar mass similar to that seen on 06/15/2017, compatible with a treated lung malignancy. 2. Small right pleural effusion which has increased slightly in size. 3. A trace amount of left-sided pleural fluid has developed. 4. Emphysema with parenchymal scarring. 5. New minimal nonspecific peripheral right middle lobe groundglass opacity. Impression . 1. Acute hypoxic respiratory failure secondary to acute exacerbation of chronic obstructive pulmonary disease and acute bronchitis 2. Abnormal chest x-ray with prominent interstitial markings. The patients clinical findings are not suggestive for congestive heart failure. 3. History of lung cancer, status post chemo and radiation. Last CT chest was in June of this year. At that time, she had a right hilar mass with post-radiation changes. 4. Morbid obesity with a BMI of 46. 5. Compensated respiratory acidosis. Plan . 1. Continue with present oxygen with gradual weaning to keep saturation 92% and above. 2. DuoNebs to continue q.i.d. 3. IV Solu-Medrol. CHANGE TO PO STEROID 4. Empiric antibiotic. 5. Noncontrast CT chest reviewed. no major change. unchanged right hilar mass/ small effusion, tiny GG opacity, likely inflammatory. repeat ct chest per oncology in future 6. DVT prophylaxis with Lovenox. 7. Discussed with RN and we will follow along with you. MINDY VICENTE MD Mar 13, 2018 12:45
== END 2018-03-13 14:58 | disposition home or self-care (01) | DRG 189 ==
LOC: ER 02:00 → 6 SOUTH 04:00
PROVIDERS: ADMIT Internal Medicine; ATTEND Internal Medicine
DX: J96.21 Acute and chronic respiratory failure with hypoxia (principal); J44.1 Chronic obstructive pulmonary disease with (acute) exacerbation; Z68.42 Body mass index [BMI] 45.0-49.9, adult; E87.2 Acidosis; I50.32 Chronic diastolic (congestive) heart failure; J44.0 Chronic obstructive pulmonary disease with (acute) lower respiratory infection; J96.22 Acute and chronic respiratory failure with hypercapnia; I11.0 Hypertensive heart disease with heart failure; J20.9 Acute bronchitis, unspecified; I25.10 Atherosclerotic heart disease of native coronary artery without angina pectoris; E66.01 Morbid (severe) obesity due to excess calories; I25.2 Old myocardial infarction; G89.29 Other chronic pain; M19.90 Unspecified osteoarthritis, unspecified site; M54.9 Dorsalgia, unspecified; Z96.652 Presence of left artificial knee joint; F17.210 Nicotine dependence, cigarettes, uncomplicated; F32.9 Major depressive disorder, single episode, unspecified; F41.9 Anxiety disorder, unspecified; E78.5 Hyperlipidemia, unspecified; K21.9 Gastro-esophageal reflux disease without esophagitis; Z96.642 Presence of left artificial hip joint; Z92.3 Personal history of irradiation; Z85.118 Personal history of other malignant neoplasm of bronchus and lung; Z92.21 Personal history of antineoplastic chemotherapy; Z95.1 Presence of aortocoronary bypass graft; Z88.6 Allergy status to analgesic agent; Z88.5 Allergy status to narcotic agent; Z88.2 Allergy status to sulfonamides; Z88.8 Allergy status to other drugs, medicaments and biological substances; Z79.51 Long term (current) use of inhaled steroids; Z79.899 Other long term (current) drug therapy; Z82.49 Family history of ischemic heart disease and other diseases of the circulatory system; Z71.6 Tobacco abuse counseling
CPT/HCPCS: 36415; 36600; 71045; 71046; 71250; 80048; 80053; 80061; 82805; 83605; 83880; 84443; 84484; 85007; 85025; 87070; 87205; 90471; 90756; 93005; 93306; 94618; 94640; 94760; 96374; 96375; J0696; J1650; J1940; J2405; J2920; J3010; J7030; J7613; J7620; J7644; 97110; 97116; 97530; 97535; 99285-25; Q2035

== ENCOUNTER → 2018-03-10 | Emergency (ER) | payer SELFPAY ==
[~2018-03-10] MED LIST changes: +ALBUTEROL SULFATE 2.5 MG/3 ML NEBU. ONE; +ALPR0.5T PO; -AMLO5TAB2 PO; +AMLO5TAB7 PO; -BUPIVACAINE 0.5% 50 ML VIAL. INJ ONE; -CLIN-44 PO; +CLIN150C14 PO; +DOXE10CA PO; +DOXY100C2 PO; +EZET10TA18 PO; -EZET10TA3 PO; -IOHEXOL 300 MG/ML 10ML VIAL. IJ ONE; +IPRATROPIUM BROMIDE 0.5 MG/2.5 ML NEBU. ONE; +METO-239 PO; -METO25TA9 PO; +MIRT15TA3 PO; -OMEP20TA PO; +OMEP20TA8 PO; +ONDA4TAB10 PO; +PRED50TA PO; -methylPREDNISolone ACETATE 80 MG/ML VIAL. IM ONE; +vitamin b12
--- NOTE | 2018-03-10 06:08 | PHYS DOC ---
Adult General Chief Complaint Chief Complaint: SHORTNESS OF BREATH HPI HPI Patient is a 62 year old female with history of COPD, congestive heart failure presents with progressive shortness of breath over the past 48 hours. Patient reports productive sputum with yellow mucus. No fever chills, nausea vomiting or sweats. No chest pain, chest tightness. Denies increased leg pain or swelling.[] Review of Systems Review of Systems Review symptoms as per history of present illness. All other review symptoms are negative. Worse All other systems were reviewed and found to be within normal limits, except as documented in this note. Current Medications Current Medications Current Medications Medications (Trade) Dose Ordered Sig/Claudette Start Time Stop Time Status Last Admin Dose Admin Albuterol Sulfate (Ventolin Neb Soln) 2.5 mg STK-MED ONCE 03/10/18 03:00 03/10/18 03:01 DC Ipratropium [place] (Atrovent) 0.5 mg STK-MED ONCE 03/10/18 03:00 03/10/18 03:01 DC Physical Exam Physical Exam Constitutional: Well developed, well nourished, no acute distress, non-toxic appearance. [] HENT: Normocephalic, atraumatic, bilateral external ears normal, oropharynx moist, no oral exudates, nose normal. [] Eyes: PERRLA, EOMI, conjunctiva normal, no discharge. [] Neck: Normal range of motion, no tenderness, supple, no stridor. [] Cardiovascular:Heart rate regular rhythm, no murmur , negative Homans signs.[] Lungs & Thorax: Respirations nonlabored, mildly diminished breath sounds bilaterally occasional expiratory wheeze. [] Abdomen: Bowel sounds normal, soft, no tenderness.[] Skin: Warm, dry, no erythema, no rash. [] Back: No tenderness, no CVA tenderness. [] Extremities: No tenderness, no cyanosis, no clubbing, ROM intact, no edema. [] Neurologic: Alert and oriented X 3, normal motor function, normal sensory function, no focal deficits noted. [] Psychologic: Affect normal, judgement normal, mood normal. [] EKG EKG [] Radiology/Procedures Radiology/Procedures [CXR: Pulmonary vascular congestion, cardiomegaly on preliminary ED review.] Course & Med Decision Making Course & Med Decision Making Pertinent Labs and Imaging studies reviewed. (See chart for details) [Lasix, breathing treatment, steroids given with some improvement. Will admit to the hospital service for further evaluation and treatment. Courtesy bridge orders provided.] Bernabeon Disclaimer Irma Disclaimer This electronic medical record was generated, in whole or in part, using a voice recognition dictation system. Departure Departure Impression: Primary Impression: COPD (chronic obstructive pulmonary disease) Additional Impression: Congestive heart failure Disposition: ADMITTED INPATIENT Admitting Physician: Other (Carlyn ) Condition: IMPROVED Problem Qualifiers KATHY ANTONIO DO Mar 10, 2018 06:08
--- NOTE | 2018-03-10 07:32 | EKG ---
[facility] [address] [place] [address] Test Date: 2018-03-10 Test Time: 02:26:06 Pat Name: GOMEZ THOMAS Department: Room: Gender: F Technical Intern: : 1955 Requested By: KATHY ANTONIO Order Number: [id number] Reading MD: Measurements Intervals [place] Rate: 77 P: 50 IN: 170 QRS: 21 QRSD: 86 T: 59 QT: 420 QTc: 477 Interpretive Statements SINUS RHYTHM INCOMPLETE RIGHT BUNDLE BRANCH BLOCK PROLONGED QT NO SPECIFIC ECG ABNORMALITIES RI6.01 No previous ECG available for comparison
--- NOTE | 2018-03-10 08:02 | RAD ---
EXAM: CHEST 1 VIEW History: Shortness of breath COMPARISON: None available TECHNIQUE: Single portable radiograph of the chest FINDINGS: Mild cardiomegaly. Median sternotomy wires identified. Mild diffuse prominent appearing interstitial lung markings could be mild congestive changes or interstitial infiltrates. Impression: Mild prominent bilateral interstitial lung markings could be mild congestive changes or interstitial infiltrates. Electronically signed by: Refugio Harris MD (03/10/2018 7:58 AM) [facility]
== END ==
LOC: MERGE 02:00 → ER 02:00
DX: J44.9 Chronic obstructive pulmonary disease, unspecified (principal); I50.9 Heart failure, unspecified
CPT/HCPCS: 71045; 93005; 99284

== ENCOUNTER 2018-04-08 00:46 | Inpatient (IN) | payer OTHER ==
[~2018-04-08] VITALS: Ht 162.6 cm; Wt 73.5 kg
[~2018-04-08 00:46] MED LIST changes: +ALPR0.5T PO; +DOXE10CA PO; +DOXY100C2 PO; +MIRT15TA3 PO; +PRED50TA PO; +vitamin b12
--- NOTE | 2018-04-08 00:58 | PHYS DOC ---
Past Medical History Past Medical History: CAD, Cancer, CA Additional Past Medical Histor: CARDIAC ISSUES, RADIATION AND CHEMO FOR RIGHT LUNG CA, CHRONIC BACK PAIN Past Surgical History: Coronary Bypass Surgery, Knee Replacement Alcohol Use: None Drug Use: None Adult General HPI HPI Patient is a 62-year-old female who presents with complaint of cough and shortness of breath for the last 3 days. Patient indicates that symptoms have progressively been getting worse. She indicates that she has taken a few breathing treatments at home in symptoms just were getting any better so called EMS. EMS reports that upon their arrival patient's oxygen saturation was 95% on room air. They gave a total of 3 breathing treatments while in route and indicate that patient has had some improvement. Patient states that currently she is feeling quite a bit better. She does indicate that she has had a cough that has been productive of yellow to green sputum. She does not believe that she has been running a fever. Patient states his symptoms of shortness of breath are worsened with minimal exertion. She states that breathing treatments have been helping. She denies any chest pain. She does complain that lower legs have been swelling more than usual. Review of Systems Review of Systems Constitutional: Denies fever or chills [] Respiratory: Complains of cough, shortness of breath and wheezing[] Cardiovascular: No additional information not addressed in HPI [] Neurologic: Denies headache, focal weakness or sensory changes [] All other systems were reviewed and found to be within normal limits, except as documented in this note. Current Medications Current Medications Current Medications Medications (Trade) Dose Ordered Sig/Claudette Start Time Stop Time Status Last Admin Dose Admin Methylprednisolone Sodium Succinate (SOLU-Medrol 125MG VIAL) 125 mg 1X ONCE 04/08/18 01:30 04/08/18 01:31 DC 04/08/18 01:39 125 MG Oxycodone/ Acetaminophen (Percocet 5/325) 1 tab 1X ONCE 04/08/18 03:00 04/08/18 03:01 UNV Allergies Allergies Allergies Coded Allergies Type Severity Reaction Last Updated Verified tramadol Allergy Severe Seizures 09/04/16 Yes Sulfa (Sulfonamide Antibiotics) Allergy Intermediate Itching & GI upset Yes lorazepam Allergy Intermediate Hives 09/04/16 Yes propoxyphene napsylate Allergy Intermediate Hives & GI upset 09/04/16 Yes I S O L A T I O N *CONTACT* Allergy Unknown 09/04/16 Yes morphine Adverse Reaction Severe 09/04/16 Yes fluticasone propionate Adverse Reaction Intermediate Anxious 09/04/16 Yes ibuprofen Adverse Reaction Intermediate NAUSEA/VOMITING 09/04/16 Yes salmeterol xinafoate Adverse Reaction Intermediate Anxious 09/04/16 Yes Physical Exam Physical Exam Constitutional: Well developed, well nourished, no acute distress, non-toxic appearance. [] HENT: Normocephalic, atraumatic, bilateral external ears normal, oropharynx moist, no oral exudates, nose normal. [] Eyes: PERRLA, EOMI, conjunctiva normal, no discharge. [] Neck: Normal range of motion, no tenderness, supple, no stridor. [] Cardiovascular: Heart rate regular rhythm [] Lungs & Thorax: Mildly diminished breath sounds are noted bilaterally with respiratory and expiratory wheezes noted. [] Abdomen: Bowel sounds normal, soft. [] Skin: Warm, dry, no erythema, no rash. [] Extremities: No tenderness, no cyanosis, no clubbing, ROM intact, with mild pitting edema to lower extremities. [] Neurologic: Alert and oriented X 3, normal motor function, normal sensory function, no focal deficits noted. [] Current Patient Data Vital Signs Vital Signs Date Time Temp Pulse Resp B/P (MAP) Pulse Ox O2 Delivery O2 Flow Rate FiO2 04/08/18 00:46 97.9 99 28 132/74 (93) 99 Room Air 97.9 Lab Values Laboratory Tests Test 04/08/18 01:30 White Blood Count 5.5 x10^3/uL (4.0-11.0) Red Blood Count 3.98 x10^6/uL (3.50-5.40) Hemoglobin 9.0 g/dL (12.0-15.5) L Hematocrit 28.8 % (36.0-47.0) L Mean Corpuscular Volume 73 fL (79-100) L Mean Corpuscular Hemoglobin 23 pg (25-35) L Mean Corpuscular Hemoglobin Concent 31 g/dL (31-37) Red Cell Distribution Width 18.1 % (11.5-14.5) H Platelet Count 273 x10^3/uL (140-400) Neutrophils (%) (Auto) 72 % (31-73) Lymphocytes (%) (Auto) 18 % (24-48) L Monocytes (%) (Auto) 5 % (0-9) Eosinophils (%) (Auto) 4 % (0-3) H Basophils (%) (Auto) 1 % (0-3) Neutrophils # (Auto) 4.0 x10^3uL (1.8-7.7) Lymphocytes # (Auto) 1.0 x10^3/uL (1.0-4.8) Monocytes # (Auto) 0.3 x10^3/uL (0.0-1.1) Eosinophils # (Auto) 0.2 x10^3/uL (0.0-0.7) Basophils # (Auto) 0.1 x10^3/uL (0.0-0.2) Sodium Level 147 mmol/L (136-145) H Potassium Level 3.1 mmol/L (3.5-5.1) L Chloride Level 103 mmol/L (98-107) Carbon Dioxide Level 36 mmol/L (21-32) H Anion Gap 8 (6-14) Blood Urea Nitrogen 12 mg/dL (7-20) Creatinine 1.0 mg/dL (0.6-1.0) Estimated GFR (Cockcroft-Gault) 56.4 BUN/Creatinine Ratio 12 (6-20) Glucose Level 101 mg/dL (70-99) H Calcium Level 8.6 mg/dL (8.5-10.1) Total Bilirubin 0.3 mg/dL (0.2-1.0) Aspartate Amino Transferase (AST) 14 U/L (15-37) L Alanine Aminotransferase (ALT) 12 U/L (14-59) L Alkaline Phosphatase 110 U/L (46-116) TD-Qzi-Z-Type Natriuretic Peptide 2508 pg/mL (0-124) H Total Protein 7.0 g/dL (6.4-8.2) Albumin 3.2 g/dL (3.4-5.0) L Albumin/Globulin Ratio 0.8 (1.0-1.7) L Laboratory Tests 04/08/18 01:30 Laboratory Tests 04/08/18 01:30 EKG EKG [] Interpretation Time: EKG demonstrates normal sinus rhythm with rate of 97. Radiology/Procedures Radiology/Procedures [] Impressions: Chest x-ray reviewed and demonstrates findings suggestive of mild fluid overload. Course & Med Decision Making Course & Med Decision Making Pertinent Labs and Imaging studies reviewed. (See chart for details) [] Dragon Disclaimer Dragon Disclaimer This electronic medical record was generated, in whole or in part, using a voice recognition dictation system. Departure Departure Impression: Primary Impression: COPD with exacerbation Additional Impression: Congestive heart failure Disposition: ADMITTED INPATIENT Admitting Physician: Barby Nair Condition: IMPROVED Referrals: BARBY NAIR MD (PCP) Problem Qualifiers Additional Impression: Congestive heart failure Heart failure type: unspecified Heart failure chronicity: unspecified Qualified Codes: I50.9 - Heart failure, unspecified TRINA ESCAMILLA Jr. DO Apr 08, 2018 00:58
--- NOTE | 2018-04-08 01:20 | EKG ---
[facility] [address] [place] [address] Test Date: 2018-04-08 Test Time: 01:10:58 Pat Name: MARTHA DYER Department: Room: Gender: F [employer]: : [id number] Requested By: TRINA ESCAMILLA Order Number: [id number] Reading MD: Olu Byrd MD Measurements Intervals [place] Rate: 97 P: 42 OR: 146 QRS: 24 QRSD: 94 T: 75 QT: 384 QTc: 492 Interpretive Statements SINUS RHYTHM NON-SPECIFIC ST/T CHANGES Electronically Signed On 04-08-2018 11:50:48 CDT by Olu Byrd MD
[2018-04-08] MEDS ORDERED: methylPREDNISolone SOD SUCC PF 125 MG/2 ML VIAL. IV ONE (01:30)
[2018-04-08 01:43] LABS: BASO # 0.1 x10^3/uL (0.0-0.2); BASO % 1 % (0-3); EOS # 0.2 x10^3/uL (0.0-0.7); EOS % 4 % (0-3); HEMATOCRIT 28.8 % (36.0-47.0); LYMPH % 18 % (24-48); MEAN CORPUSCULAR HEMOGLOBIN 23 pg (25-35); MEAN CORPUSCULAR HGB CONC 31 g/dL (31-37); MEAN CORPUSCULAR VOLUME 73 fL (79-100); MONO # 0.3 x10^3/uL (0.0-1.1); MONO % 5 % (0-9); NEUT % 72 % (31-73); PLATELET COUNT 273 x10^3/uL (140-400); RED BLOOD COUNT 3.98 x10^6/uL (3.50-5.40); RED CELL DISTRIBUTION WIDTH 18.1 % (11.5-14.5); WHITE BLOOD COUNT 5.5 x10^3/uL (4.0-11.0)
[2018-04-08 02:07] LABS: CALCIUM 8.6 mg/dL (8.5-10.1); GFR 56.4; POTASSIUM 3.1 mmol/L (3.5-5.1)
[2018-04-08 02:12] LABS: ALBUMIN 3.2 g/dL (3.4-5.0); ALBUMIN/GLOBULIN RATIO 0.8 (1.0-1.7); TOTAL BILIRUBIN 0.3 mg/dL (0.2-1.0)
--- NOTE | 2018-04-08 02:55 | RAD ---
CHEST PA LATERAL Technique: PA and lateral views of the chest were obtained. Clinical History: SHORT OF BREATH SINCE SUNDAY Comparison: March 10, 2018. Findings: Median sternotomy wires are again seen. The heart is mildly enlarged the pulmonary vessels appear normal. Reticular opacities of the lungs are seen previously likely chronic pulmonary fibrosis. There is blunting of the right costophrenic angle. Is mild patchy opacities in the left lung base. Impression: Findings suggest mild CHF and tiny right effusion. Electronically signed by: Moody Schaffer III, MD (04/08/2018 2:51 AM) [facility]
[2018-04-08] MEDS ORDERED: ONDANSETRON PF 4 MG/2 ML VIAL. IV PRN (03:00)
[2018-04-08] MEDS ORDERED: ACETAMINOPHEN 325 MG TABLET. PO PRN (03:00)
[2018-04-08] MEDS ORDERED: FUROSEMIDE 20 MG/2 ML VIAL. IVP ONE (03:30)
[2018-04-08] MEDS ORDERED: oxyCODONE/APAP 5/325 1 TAB TABLET PO ONE (03:30)
[2018-04-08 04:00] VITALS: BP 131/70
[2018-04-08] MEDS ORDERED: AMIT50TA PO (04:49)
[2018-04-08] MEDS ORDERED: HYDR25TA9 PO (04:49)
[2018-04-08] MEDS ORDERED: NON FORMULARY ITEM (Albuterol Sulfate (Albuterol Sulfate Conc Neb Soln) 1 VIAL) NEB PRN (05:30)
[2018-04-08] MEDS ORDERED: NON FORMULARY ITEM (Budesonide/Formoterol Fumarate (Symbicort 160-4.5 Mcg Inhaler) 2 PUFF) IH SCH (05:30)
[2018-04-08] MEDS ORDERED: ALPRAZolam 0.5 MG TABLET PO PRN (05:30)
[2018-04-08] MEDS ORDERED: ALBUTEROL SULFATE 2.5 MG/3 ML NEBU. NEB PRN (05:45)
[2018-04-08 07:00] VITALS: BP 133/70
[2018-04-08] MEDS ORDERED: IPRATRPIUM/ALBUTEROL 0.5/2.5MG 3 ML NEBU. NEB SCH ×2 (08:00)
[2018-04-08] MEDS ORDERED: POTASSIUM CHLORIDE 10 MEQ TABLET.ER. PO SCH (08:00)
[2018-04-08] MEDS: FLUoxetine HCL 20 MG CAPSULE PO SCH (08:02)
[2018-04-08] MEDS: PANTOPRAZOLE 40 MG TABLET.DR. PO SCH (08:03)
[2018-04-08] MEDS: METOPROLOL SUCC 24HR ER 25 MG TAB.ER.24H. PO SCH (08:03)
[2018-04-08] MEDS: EZETIMIBE 10 MG TABLET. PO SCH (08:04)
[2018-04-08] MEDS: hydroCHLOROthiazide 25 MG TABLET PO SCH (08:04)
[2018-04-08] MEDS: MULTIVITAMIN with MINERAL TABLET. PO SCH (08:04)
[2018-04-08] MEDS: oxyCODONE IR 5 MG TABLET PO PRN ×2 (09:15→20:17)
--- NOTE | 2018-04-08 09:24 | PDOC ---
Provider Note Provider Note H&P dictated. #[id number] BARBY MARIE MD Apr 08, 2018 09:24
[2018-04-08] MEDS ORDERED: IPRATRPIUM/ALBUTEROL 0.5/2.5MG 3 ML NEBU. NEB ONE (09:30)
[2018-04-08] MEDS: BUDESONIDE 0.5 MG/2 ML NEBU. NEB SCH ×2 (09:53→20:51)
[2018-04-08] MEDS: POTASSIUM CHLORIDE 20 MEQ TABLET.ER. PO ONE ×2 (10:00→11:29)
[2018-04-08 11:00] VITALS: BP 145/67
[2018-04-08] MEDS: FUROSEMIDE 20 MG/2 ML VIAL. IVP SCH ×2 (11:30→14:53)
[2018-04-08] MEDS: CARISOPRODOL 350 MG TABLET PO SCH ×3 (11:30→21:16)
--- NOTE | 2018-04-08 12:13 | HP ---
ADMIT DATE: 04/08/2018 LOCATION: 588 REASON FOR ADMISSION TO THE HOSPITAL: COPD with acute exacerbation and also mild diastolic heart failure. HISTORY OF PRESENT ILLNESS: The patient is a 62-year-old female with history of COPD, lung cancer, has diastolic dysfunction. Had echocardiogram, seen by Cardiology last month. She was having cough with wheezing and also shortness of breath, came to the Emergency Room. BNP was elevated. The patient had wheezing, did not improve with the breathing treatment, was given Solu-Medrol and IV Lasix and her condition was improved, was admitted to the hospital. PAST MEDICAL HISTORY: She has history of coronary artery disease, bypass surgery; lung cancer, had radiation treatment more than 5 years ago; hypertension; hyperlipidemia; anxiety; diastolic heart failure. PAST SURGICAL HISTORY: Heart bypass surgery, knee replacement. ALLERGIES: TO SULFA, FLUTICASONE, IBUPROFEN, LORAZEPAM, MORPHINE, DARVOCET, SALMETEROL XINAFOATE, TRAMADOL. Radiation to the lung for lung cancer. MEDICATIONS: She is on albuterol, Xanax 0.5 q. 6h., atorvastatin 40 mg daily, budesonide twice a day, Soma 350 mg 3 times a day, Zetia 10 mg daily, fluoxetine 40 mg daily, metoprolol 25 mg daily, vitamin daily, omeprazole 20 mg daily, Zofran for nausea, oxycodone 15 mg 3 times daily, potassium 10 mEq daily, Phenergan, mirtazapine, doxepin, home oxygen, DuoNeb 4 times daily. PERSONAL HISTORY: Smoked for 30 years. She says she quit recently couple of weeks ago. Denies alcohol. The patient has chronic pain medications. FAMILY HISTORY: Positive for heart disease, lung problems. REVIEW OF SYMPTOMS: Has cough, no sputum, has some swelling at the ankle, wheezing. Rest of the 14-system was reviewed. The patient had flu and pneumonia shot, up-to-date on that. PHYSICAL EXAMINATION: VITAL SIGNS: Shows temperature 97, pulse 99, respirations 28, blood pressure 132/74, 99 on room air. HEENT: Head is atraumatic. Pupils equal. Oral cavity: No congestion. NECK: Supple. Thyroid not enlarged. JVD not elevated. CHEST: Symmetrical, scar of heart surgery. CARDIOVASCULAR: S1, S2. LUNGS: Expiratory wheezing. Few crackles at the bases, mostly posterior. ABDOMEN: Soft, bowel sounds present, no mass palpable. EXTERNAL GENITALIA: No Jarvis. RECTAL: Deferred. EXTREMITIES: No calf tenderness. 1+ edema at the ankles and the legs. NEUROLOGIC: Moving all extremities. No focal deficits noted. LABORATORY DATA: Shows a white count of 5.5, hemoglobin 10, platelets 273. Electrolytes show sodium 147, potassium 3.1, chloride 103, bicarbonate 36, BUN 12, creatinine 1.0. Glucose 100. BNP was more than 2500. LFTs were normal. Chest x-ray showed mild CHF, tiny right effusion. EKG done, report is pending. FINAL IMPRESSION: 1. Chronic obstructive pulmonary disease with acute exacerbation. 2. Bronchitis. 3. Diastolic heart failure, mild. 4. History of lung cancer, had radiation treatment. 5. Coronary artery disease, history of bypass surgery. 6. Hypertension. 7. Hyperlipidemia. 8. Chronic narcotic medications. 9. Ex-smoker. 10. Hypokalemia PLAN: At this time, was admitted to the hospital. IV Lasix twice a day, Solu-Medrol 40 three times daily. Replace potassium and see how the patient improves. DuoNeb 4 times daily. The patient was in the hospital last month, had echocardiogram and seen by Pulmonology, had a CT of the chest. We would not repeat those at this time. BARBY MARIE MD DR: AUBREY/eda JOB#: [id number] / [id number]
[2018-04-08] MEDS: methylPREDNISolone SOD SUCC PF 40 MG/ML VIAL. IV SCH ×2 (14:52→21:16)
[2018-04-08 15:00] VITALS: BP 116/66
[2018-04-08] MEDS: IPRATRPIUM/ALBUTEROL 0.5/2.5MG 3 ML NEBU. NEB SCH ×2 (16:06→20:54)
[2018-04-08 19:00] VITALS: BP 148/75
[2018-04-08] MEDS: AMITRIPTYLINE HCL 50 MG TABLET PO SCH (21:16)
[2018-04-08] MEDS: ATORVASTATIN CALCIUM 40 MG TABLET. PO SCH (21:16)
[2018-04-08] MEDS: ENOXAPARIN 40 MG/0.4 ML SYRINGE. SQ SCH (21:18)
[2018-04-08 22:57] VITALS: BP 106/57
[2018-04-09 03:00] VITALS: BP 116/60
[2018-04-09] MEDS: methylPREDNISolone SOD SUCC PF 40 MG/ML VIAL. IV SCH ×2 (05:46→22:02)
[2018-04-09 07:00] VITALS: BP 127/60
[2018-04-09 07:34] LABS: BASO % 0 % (0-3); EOS % 0 % (0-3); HEMATOCRIT 27.3 % (36.0-47.0); HEMOGLOBIN 8.3 g/dL (12.0-15.5); LYMPH # 0.5 x10^3/uL (1.0-4.8); LYMPH % 4 % (24-48); MEAN CORPUSCULAR HEMOGLOBIN 22 pg (25-35); MEAN CORPUSCULAR HGB CONC 30 g/dL (31-37); MEAN CORPUSCULAR VOLUME 74 fL (79-100); MONO # 0.4 x10^3/uL (0.0-1.1); MONO % 4 % (0-9); NEUT # 9.7 x10^3uL (1.8-7.7); NEUT % 92 % (31-73); PLATELET COUNT 304 x10^3/uL (140-400); RED BLOOD COUNT 3.72 x10^6/uL (3.50-5.40); RED CELL DISTRIBUTION WIDTH 17.9 % (11.5-14.5); WHITE BLOOD COUNT 10.6 x10^3/uL (4.0-11.0)
[2018-04-09 07:55] LABS: CALCIUM 8.8 mg/dL (8.5-10.1); CREATININE 0.9 mg/dL (0.6-1.0); GFR 63.7; POTASSIUM 4.2 mmol/L (3.5-5.1)
[2018-04-09] MEDS: BUDESONIDE 0.5 MG/2 ML NEBU. NEB SCH ×2 (08:00→20:00)
[2018-04-09] MEDS: IPRATRPIUM/ALBUTEROL 0.5/2.5MG 3 ML NEBU. NEB SCH ×5 (08:03→20:46)
[2018-04-09] MEDS: POTASSIUM CHLORIDE 20 MEQ TABLET.ER. PO SCH (09:06)
[2018-04-09] MEDS: FLUoxetine HCL 20 MG CAPSULE PO SCH (09:06)
[2018-04-09] MEDS: PANTOPRAZOLE 40 MG TABLET.DR. PO SCH (09:06)
[2018-04-09] MEDS: EZETIMIBE 10 MG TABLET. PO SCH (09:06)
[2018-04-09] MEDS: CARISOPRODOL 350 MG TABLET PO SCH ×3 (09:06→22:01)
[2018-04-09] MEDS: METOPROLOL SUCC 24HR ER 25 MG TAB.ER.24H. PO SCH (09:07)
[2018-04-09] MEDS: hydroCHLOROthiazide 25 MG TABLET PO SCH (09:07)
[2018-04-09] MEDS: ENOXAPARIN 40 MG/0.4 ML SYRINGE. SQ SCH ×2 (09:07→22:01)
[2018-04-09] MEDS: FUROSEMIDE 20 MG/2 ML VIAL. IVP SCH ×2 (09:07→14:41)
[2018-04-09] MEDS: MULTIVITAMIN with MINERAL TABLET. PO SCH (09:16)
--- NOTE | 2018-04-09 09:54 | PDOC ---
PROGRESS NOTES Subjective Subjective feels better today, dec wheezing Objective Objective Vital Signs Date Time Temp Pulse Resp B/P (MAP) Pulse Ox O2 Delivery O2 Flow Rate FiO2 04/09/18 09:07 79 127/60 04/09/18 08:05 89 Room Air 04/09/18 07:00 97.7 19 97.7 04/08/18 10:15 2.0 Intake and Output 04/09/18 07:00 Intake Total 1158 ml Balance 1158 ml Intake Oral 1158 ml # Voids 2 Physical Exam Abdomen: Normal bowel sounds, Soft Heart: Regular rate, Normal S1 Extremities: No clubbing, No cyanosis General: Alert, Oriented X3 HEENT: Atraumatic Lungs: Other (dec wheezing) MUSCULOSKELETAL: No deformity Neck: No JVD Neuro: Normal speech Psych/Mental Status: Mental status NL Skin: No breakdown Diagnosis Problem List Problems Medical Problems: (1) Congestive heart failure Status: Acute (2) COPD with exacerbation Status: Acute Assessment Assessment Problems Medical Problems: (1) Congestive heart failure Status: Acute (2) COPD with exacerbation Status: Acute FINAL IMPRESSION: 1. Chronic obstructive pulmonary disease with acute exacerbation. 2. Bronchitis acute. 3. Diastolic heart failure, mild.good LVF 4. History of lung cancer, had radiation treatment. 5. Coronary artery disease, history of bypass surgery.no ischemia on last stress test few months ago 6. Hypertension. 7. Hyperlipidemia. 8. Chronic narcotic medications. 9. Ex-smoker. 10.Hypokalemia PLAN: clinically improving iv lasix today iv solumedrol today. repeat cxr today. pot normal today pt/ot d/c home tomorrow.?. Plan Plan of Care Problems Medical Problems: (1) Congestive heart failure Status: Acute (2) COPD with exacerbation Status: Acute Comment Review of Relevant I have reviewed the following items norberto (where applicable) has been applied. Labs Laboratory Tests Test 04/09/18 06:58 White Blood Count 10.6 x10^3/uL (4.0-11.0) Red Blood Count 3.72 x10^6/uL (3.50-5.40) Hemoglobin 8.3 g/dL (12.0-15.5) Hematocrit 27.3 % (36.0-47.0) Mean Corpuscular Volume 74 fL (79-100) Mean Corpuscular Hemoglobin 22 pg (25-35) Mean Corpuscular Hemoglobin Concent 30 g/dL (31-37) Red Cell Distribution Width 17.9 % (11.5-14.5) Platelet Count 304 x10^3/uL (140-400) Neutrophils (%) (Auto) 92 % (31-73) Lymphocytes (%) (Auto) 4 % (24-48) Monocytes (%) (Auto) 4 % (0-9) Eosinophils (%) (Auto) 0 % (0-3) Basophils (%) (Auto) 0 % (0-3) Neutrophils # (Auto) 9.7 x10^3uL (1.8-7.7) Lymphocytes # (Auto) 0.5 x10^3/uL (1.0-4.8) Monocytes # (Auto) 0.4 x10^3/uL (0.0-1.1) Eosinophils # (Auto) 0.0 x10^3/uL (0.0-0.7) Basophils # (Auto) 0.0 x10^3/uL (0.0-0.2) Sodium Level 141 mmol/L (136-145) Potassium Level 4.2 mmol/L (3.5-5.1) Chloride Level 103 mmol/L (98-107) Carbon Dioxide Level 32 mmol/L (21-32) Anion Gap 6 (6-14) Blood Urea Nitrogen 23 mg/dL (7-20) Creatinine 0.9 mg/dL (0.6-1.0) Estimated GFR (Cockcroft-Gault) 63.7 Glucose Level 135 mg/dL (70-99) Calcium Level 8.8 mg/dL (8.5-10.1) Medications Current Medications Albuterol/ Ipratropium (Duoneb) 3 ml RTQID NEB Last administered on 04/09/18at 08:03; Start 04/08/18 at 12:00 Amitriptyline HCl (Elavil) 50 mg QHS PO Last administered on 04/08/18at 21:16; Start 04/08/18 at 21:00 Atorvastatin Calcium (Lipitor) 40 mg HS PO Last administered on 04/08/18at 21: 16; Start 04/08/18 at 21:00 Enoxaparin Sodium (Lovenox 40mg Syringe) 40 mg Q12HR SQ Last administered on at 09:07; Start 04/08/18 at 21:00 Furosemide (Lasix) 20 mg [id number] IVP Last administered on 04/09/18at 09:07; Start 04/08/18 at 10:00 Methylprednisolone Sodium Succinate (SOLU-Medrol 40MG VIAL) 40 mg Q8HRS IV Last administered on 04/09/18at 05:46; Start 04/08/18 at 14:00 Potassium Chloride (Klor-Con) 20 meq [id number] PO Last administered on at 09:06; Start 04/09/18 at 08:00 Potassium Chloride (Klor-Con) 40 meq 1X ONCE PO ; Start 04/08/18 at 10:00; Stop 04/08/18 at 10:01; Status DC Vitals/I & O Vital Sign - Last 24 Hours 04/08/18 04/08/18 04/08/18 04/08/18 09:55 10:15 11:00 13:03 Temp 98.2 98.2 Pulse 84 Resp 18 B/P (MAP) 145/67 (93) Pulse Ox 91 90 90 90 O2 Delivery Room Air Nasal Cannula RA/ 2L PRN Room Air O2 Flow Rate 2.0 04/08/18 04/08/18 04/08/18 04/08/18 15:00 16:07 19:00 20:00 Temp 98.1 98.1 98.1 98.1 Pulse 120 118 Resp 18 22 B/P (MAP) 116/66 (83) 148/75 (99) Pulse Ox 82 90 89 O2 Delivery RA/ 2L PRN Room Air Room Air Room Air 04/08/18 04/08/18 04/08/18 04/09/18 20:17 20:55 22:57 03:00 Temp 98.1 97.9 98.1 97.9 Pulse 117 108 Resp 21 19 B/P (MAP) 106/57 (73) 116/60 (78) Pulse Ox 96 91 92 O2 Delivery Room Air Room Air Room Air Room Air 04/09/18 04/09/18 04/09/18 07:00 08:05 09:07 Temp 97.7 97.7 Pulse 79 79 Resp 19 B/P (MAP) 127/60 (82) 127/60 Pulse Ox 83 89 O2 Delivery Room Air Room Air Intake and Output 04/08/18 04/08/18 04/09/18 15:00 23:00 07:00 Intake Total 600 ml 418 ml 140 ml Balance 600 ml 418 ml 140 ml BARBY MARIE MD Apr 09, 2018 09:54
[2018-04-09 11:00] VITALS: BP 125/60
[2018-04-09 12:14] LABS: % BANDS 20 % (0-9); % LYMPHS 4 % (24-48); % MONOS 1 % (0-10); % SEGS 75 % (35-66); NUCLEATED RBC 1
[2018-04-09 12:16] LABS: PLT ESTIMATE ADEQUATE (ADEQUATE)
[2018-04-09 12:17] LABS: ANISOCYTOSIS MOD; HYPOCHROMIA MOD; MICROCYTOSIS SLIGHT; POIKILOCYTOSIS SLIGHT
[2018-04-09] MEDS: oxyCODONE IR 5 MG TABLET PO PRN ×2 (14:49→22:02)
[2018-04-09 15:00] VITALS: BP 93/60
--- NOTE | 2018-04-09 17:00 | RAD ---
PA and lateral chest radiograph. History: Follow-up congestive heart failure. Comparison: April 08, 2018. Findings: Cardiac silhouette is at the upper limits of normal for size. Median sternotomy wires are present. No pneumothorax is seen. There is evidence of small right pleural effusion. No large consolidation is identified. There is accentuation of interstitial markings, although this is probably similar to previous study given differences in technical factors between the 2 studies. Numerous surgical clips are seen in left upper quadrant. Proximal left humerus demonstrates fixation hardware. Impression: 1. Ongoing mild congestive heart failure. Electronically signed by: Db Pinedo MD (04/09/2018 4:57 PM) [place] [id number]
[2018-04-09 19:00] VITALS: BP 123/60
[2018-04-09] MEDS: AMITRIPTYLINE HCL 50 MG TABLET PO SCH (22:01)
[2018-04-09] MEDS: ATORVASTATIN CALCIUM 40 MG TABLET. PO SCH (22:01)
[2018-04-09 22:51] VITALS: BP 112/61
[2018-04-10 02:59] VITALS: BP 143/62
[2018-04-10 07:00] VITALS: BP 125/61
[2018-04-10] MEDS: IPRATRPIUM/ALBUTEROL 0.5/2.5MG 3 ML NEBU. NEB SCH ×4 (07:21→20:27)
[2018-04-10] MEDS: BUDESONIDE 0.5 MG/2 ML NEBU. NEB SCH ×2 (07:21→20:27)
[2018-04-10] MEDS: POTASSIUM CHLORIDE 20 MEQ TABLET.ER. PO SCH (09:52)
[2018-04-10] MEDS: hydroCHLOROthiazide 25 MG TABLET PO SCH (09:52)
[2018-04-10] MEDS: PANTOPRAZOLE 40 MG TABLET.DR. PO SCH (09:53)
[2018-04-10] MEDS: METOPROLOL SUCC 24HR ER 25 MG TAB.ER.24H. PO SCH (09:53)
[2018-04-10] MEDS: CARISOPRODOL 350 MG TABLET PO SCH ×3 (09:53→20:41)
[2018-04-10] MEDS: FUROSEMIDE 80 MG TABLET. PO SCH (09:53)
[2018-04-10] MEDS: MULTIVITAMIN with MINERAL TABLET. PO SCH (09:53)
[2018-04-10] MEDS: EZETIMIBE 10 MG TABLET. PO SCH (09:53)
[2018-04-10] MEDS: FLUoxetine HCL 20 MG CAPSULE PO SCH (09:53)
[2018-04-10] MEDS: methylPREDNISolone SOD SUCC PF 40 MG/ML VIAL. IV SCH ×2 (09:54→20:41)
[2018-04-10] MEDS: ENOXAPARIN 40 MG/0.4 ML SYRINGE. SQ SCH ×2 (09:54→20:41)
[2018-04-10] MEDS: oxyCODONE IR 5 MG TABLET PO PRN ×2 (09:56→18:56)
--- NOTE | 2018-04-10 10:10 | PDOC ---
PROGRESS NOTES Subjective Subjective pt does not feel well today, did not sleep well last night Objective Objective Vital Signs Date Time Temp Pulse Resp B/P (MAP) Pulse Ox O2 Delivery O2 Flow Rate FiO2 04/10/18 09:56 Room Air 04/10/18 09:53 80 125/61 04/10/18 07:22 94 04/10/18 07:00 97.6 20 97.6 04/09/18 22:02 2.0 Intake and Output 04/10/18 07:00 Intake Total 850 ml Balance 850 ml Intake Oral 850 ml # Voids 1 Physical Exam Abdomen: Normal bowel sounds, Soft Heart: Regular rate, Normal S1 Extremities: No clubbing, No cyanosis General: Alert, Oriented X3 HEENT: Atraumatic Lungs: Other (dec wheezing) MUSCULOSKELETAL: No deformity Neck: No JVD Neuro: Normal speech Psych/Mental Status: Mental status NL Skin: No breakdown Diagnosis Problem List Problems Medical Problems: (1) Congestive heart failure Status: Acute (2) COPD with exacerbation Status: Acute Assessment Assessment Problems Medical Problems: (1) Congestive heart failure Status: Acute (2) COPD with exacerbation Status: Acute FINAL IMPRESSION: 1. Chronic obstructive pulmonary disease with acute exacerbation. 2. Bronchitis acute. 3. Diastolic heart failure, mild.good LVF 4. History of lung cancer, had radiation treatment. 5. Coronary artery disease, history of bypass surgery.no ischemia on last stress test few months ago 6. Hypertension. 7. Hyperlipidemia. 8. Chronic narcotic medications. 9. Ex-smoker. 10.Hypokalemia PLAN: doxycycline po added trazodone for sleep clinically improving po lasix today 80 mg iv solumedrol today. repeat cxr mild chf pot normal today pt/ot d/c home tomorrow.?. Plan Plan of Care Problems Medical Problems: (1) Congestive heart failure Status: Acute (2) COPD with exacerbation Status: Acute Comment Review of Relevant I have reviewed the following items norberto (where applicable) has been applied. Medications Current Medications Furosemide (Lasix) 80 mg DAILY PO Last administered on 04/10/18at 09:53; Start 04/10/18 at 09:00 Methylprednisolone Sodium Succinate (SOLU-Medrol 40MG VIAL) 40 mg Q12HR IV Last administered on 04/10/18at 09:54; Start 04/09/18 at 21:00 Vitals/I & O Vital Sign - Last 24 Hours 04/09/18 04/09/18 04/09/18 04/09/18 11:00 12:16 14:49 15:00 Temp 97.6 97.4 97.6 97.4 Pulse 81 91 Resp 18 18 20 B/P (MAP) 125/60 (81) 93/60 (71) Pulse Ox 89 88 88 O2 Delivery Room Air Room Air Room Air Room Air 04/09/18 04/09/18 04/09/18 04/09/18 16:53 17:45 19:00 20:00 Temp 97.8 97.8 Pulse 81 Resp 18 B/P (MAP) 123/60 (81) Pulse Ox 94 O2 Delivery Room Air Room Air Room Air Room Air 04/09/18 04/09/18 04/09/18 04/10/18 20:42 22:02 22:51 02:59 Temp 98.2 98.3 98.2 98.3 Pulse 90 83 Resp 19 20 B/P (MAP) 112/61 (78) 143/62 (89) Pulse Ox 94 97 92 O2 Delivery Room Air Room Air Room Air Room Air O2 Flow Rate 2.0 04/10/18 04/10/18 04/10/18 04/10/18 03:21 07:00 07:22 09:53 Temp 97.6 97.6 Pulse 80 80 Resp 20 B/P (MAP) 125/61 (82) 125/61 Pulse Ox 94 94 94 O2 Delivery Room Air Room Air Room Air 04/10/18 09:56 O2 Delivery Room Air Intake and Output 04/09/18 04/09/18 04/10/18 15:00 23:00 07:00 Intake Total 850 ml Balance 850 ml BARBY MARIE MD Apr 10, 2018 10:10
[2018-04-10 11:00] VITALS: BP 144/58
[2018-04-10] MEDS: DOXYCYCLINE HYCLATE 100 MG TABLET PO SCH ×2 (12:25→20:41)
[2018-04-10] MEDS: LOSARTAN POTASSIUM 50 MG TABLET. PO SCH (12:26)
[2018-04-10 15:00] VITALS: BP 125/62
[2018-04-10 19:00] VITALS: BP 122/60
[2018-04-10] MEDS: ATORVASTATIN CALCIUM 40 MG TABLET. PO SCH (20:40)
[2018-04-10] MEDS ORDERED: traZODone 50 MG TABLET. PO SCH (21:00)
[2018-04-10 23:00] VITALS: BP 106/55
[2018-04-11 03:00] VITALS: BP 131/61
[2018-04-11 07:00] VITALS: BP 138/67
[2018-04-11] MEDS: IPRATRPIUM/ALBUTEROL 0.5/2.5MG 3 ML NEBU. NEB SCH ×3 (07:31→15:07)
[2018-04-11] MEDS: BUDESONIDE 0.5 MG/2 ML NEBU. NEB SCH (08:00)
[2018-04-11] MEDS: methylPREDNISolone SOD SUCC PF 40 MG/ML VIAL. IV SCH (08:04)
[2018-04-11] MEDS: ENOXAPARIN 40 MG/0.4 ML SYRINGE. SQ SCH (08:05)
[2018-04-11] MEDS: DOXYCYCLINE HYCLATE 100 MG TABLET PO SCH (08:05)
[2018-04-11] MEDS: hydroCHLOROthiazide 25 MG TABLET PO SCH (08:05)
[2018-04-11] MEDS: oxyCODONE IR 5 MG TABLET PO PRN (08:06)
[2018-04-11] MEDS: METOPROLOL SUCC 24HR ER 25 MG TAB.ER.24H. PO SCH (08:07)
[2018-04-11] MEDS: FLUoxetine HCL 20 MG CAPSULE PO SCH (08:07)
[2018-04-11] MEDS: EZETIMIBE 10 MG TABLET. PO SCH (08:07)
[2018-04-11] MEDS: POTASSIUM CHLORIDE 20 MEQ TABLET.ER. PO SCH (08:07)
[2018-04-11] MEDS: PANTOPRAZOLE 40 MG TABLET.DR. PO SCH (08:08)
[2018-04-11] MEDS: LOSARTAN POTASSIUM 50 MG TABLET. PO SCH (08:08)
[2018-04-11] MEDS: FUROSEMIDE 80 MG TABLET. PO SCH (08:08)
[2018-04-11] MEDS: CARISOPRODOL 350 MG TABLET PO SCH (08:08)
[2018-04-11] MEDS: MULTIVITAMIN with MINERAL TABLET. PO SCH (08:08)
[2018-04-11] MEDS ORDERED: FURO80TA3 PO (09:59)
[2018-04-11] MEDS ORDERED: LOSA50TA2 PO (09:59)
[2018-04-11 11:00] VITALS: BP 112/53
--- NOTE | 2018-04-13 12:28 | PDOC ---
Provider Note Provider Note Discharge summary dictated. #[id number] BARBY MARIE MD Apr 13, 2018 12:28
--- NOTE | 2018-04-13 12:54 | DS ---
DATE OF DISCHARGE: 04/11/2018 REASON FOR ADMISSION TO THE HOSPITAL: Combination of COPD and CHF exacerbation. CONSULTATIONS: None. PROCEDURE: None. HOSPITAL COURSE: The patient is a 62-year-old female with history of coronary artery disease, bypass surgery, chronic COPD on bronchodilators at home. She was found to have a new onset of diastolic heart failure, had echocardiogram, seen by Cardiology and Pulmonology, last a couple of weeks ago. She came with COPD with acute exacerbation as well as shortness of breath. BNP was slightly elevated, bronchospasm, was given IV Solu-Medrol and IV Lasix. Her CHF improved with diuretics and COPD improved with IV antibiotics, and the patient was discharged. The patient had a complete workup done in last admission less than a month ago. FINAL DIAGNOSES: 1. Chronic obstructive pulmonary disease with acute exacerbation. 2. Chronic diastolic heart failure. 3. Coronary artery disease, history of bypass surgery. 4. Anemia of chronic disease, sees Hematology. 5. Hypertension. 6. Hyperlipidemia. 7. History of smoking. She stopped smoking. DISPOSITION: Home. The patient is up-to-date on flu and pneumonia shots. DISCHARGE MEDICATIONS: See MRAD for discharge medications. The patient had extensive workup less than a month ago including echo, CT scan and a stress test not too long ago. BARBY MARIE MD DR: AUBREY/eda JOB#: [id number] / [id number]
== END 2018-04-11 15:15 | disposition home or self-care (01) | DRG 190 ==
LOC: ER 00:46 → 5 SOUTH 03:08
PROVIDERS: ADMIT Internal Medicine; ATTEND Internal Medicine
DX: J44.1 Chronic obstructive pulmonary disease with (acute) exacerbation (principal); I50.33 Acute on chronic diastolic (congestive) heart failure; I50.32 Chronic diastolic (congestive) heart failure; J20.9 Acute bronchitis, unspecified; J44.0 Chronic obstructive pulmonary disease with (acute) lower respiratory infection; I11.0 Hypertensive heart disease with heart failure; I25.10 Atherosclerotic heart disease of native coronary artery without angina pectoris; E78.5 Hyperlipidemia, unspecified; F41.9 Anxiety disorder, unspecified; Z96.659 Presence of unspecified artificial knee joint; E87.6 Hypokalemia; D63.8 Anemia in other chronic diseases classified elsewhere; G89.29 Other chronic pain; Z85.118 Personal history of other malignant neoplasm of bronchus and lung; Z88.6 Allergy status to analgesic agent; Z88.2 Allergy status to sulfonamides; Z88.8 Allergy status to other drugs, medicaments and biological substances; Z87.891 Personal history of nicotine dependence; Z95.1 Presence of aortocoronary bypass graft
CPT/HCPCS: 36415; 71046; 80048; 80053; 83880; 85007; 85025; 87641; 93005; 94640; 94760; 96374; J1650; J1940; J2405; J2920; J2930; J7613; J7620; J7626; 99285-25

== ENCOUNTER 2018-06-13 12:09 | Emergency (ER) | payer OTHER ==
[~2018-06-13] VITALS: Ht 160 cm; Wt 115.7 kg
[~2018-06-13 12:09] MED LIST changes: -CONTRAST GIVEN. MC PRN; -IOHEXOL 240 MG/ML 50ML VIAL. PO ONE; -IOHEXOL 300 MG/ML 100ML VIAL. IV ONE
--- NOTE | 2018-06-13 12:55 | PHYS DOC ---
Past Medical History Past Medical History: CAD, Cancer, Hypertension, MD, Pneumonia Additional Past Medical Histor: CARDIAC ISSUES, RADIATION AND CHEMO FOR RIGHT LUNG CA, CHRONIC BACK PAIN Past Surgical History: Coronary Bypass Surgery, Knee Replacement Alcohol Use: None Drug Use: None Adult General Chief Complaint Chief Complaint: MECHANICAL FALL HPI HPI Patient is a 62-year-old female who presents to the emergency department for evaluation, she is in the hospital because she is scheduled for a bone scan for monitoring of her lung cancer, and she was getting lunch in the cafeteria. She states she was putting her tray on the counter by the cashier credit, when she tripped over her feet, possibly tripping over a transition from the floor to the carpet. She denies feeling dizzy or lightheaded or any palpitations, chest pain , or malaise prior to falling. She states she simply lost her balance and tripped. She did not hit her head. She sustained a superficial abrasion on her left elbow, and on her right thumb. She also sustained a contusion on her left anterior nixon. She has some discomfort in this area, but denies any other pain. Her last tetanus was within the past 10 years. She has not had any fevers or chills, and denies any shortness of breath, cough, or any other painful areas. She denies any headache or neck pain, numbness or weakness. Palpation of the affected areas worsen her pain. There are no alleviating factors to her symptoms otherwise. Review of Systems Review of Systems Constitutional: Denies fever or chills [] Eyes: Denies change in visual acuity, redness, or eye pain [] HENT: Denies nasal congestion or sore throat [] Respiratory: Denies cough or shortness of breath [] Cardiovascular:The patient denies any shortness of breath, chest pain, palpitations, or orthopnea [] GI: Denies abdominal pain, nausea, vomiting, bloody stools or diarrhea [] : Denies dysuria or hematuria [] Musculoskeletal: Denies back pain or joint pain . Pain in extremities as noted in the history of present illness.[] Integument: Denies rash or skin lesions [] Neurologic: Denies headache, focal weakness or sensory changes [] Allergies Allergies Allergies Coded Allergies Type Severity Reaction Last Updated Verified tramadol Allergy Severe Seizures 09/04/16 Yes Sulfa (Sulfonamide Antibiotics) Allergy Intermediate Itching & GI upset Yes lorazepam Allergy Intermediate Hives 09/04/16 Yes propoxyphene napsylate Allergy Intermediate Hives & GI upset 09/04/16 Yes morphine Adverse Reaction Severe 09/04/16 Yes ibuprofen Adverse Reaction Intermediate NAUSEA/VOMITING 09/04/16 Yes Physical Exam Physical Exam PHYSICAL EXAM: CONSTITUTIONAL: Well developed, well nourished HEAD: normocephalic, atraumatic EENT: PERRL, EOMI. Conjunctivae normal color, sclerae non-icteric; moist mucous membranes. NECK: Supple, non-tender; no meningismus.There is full, painless range of motion of the cervical spine, without any focal bony midline tenderness to palpation. LUNGS: There are mild scattered expiratory wheezes, breathing even and unlabored. Normal air movement. HEART: Regular rate and rhythm, no murmur CHEST: No deformity; non-tender ABDOMEN: The abdomen is soft, and non-tender, no masses or bruits. EXTREM: Normal ROM; no deformity, no calf tenderness. Normal pulses palpable in all extremities. There is no pedal edema. There is a superficial abrasion/skin tear on the extensor surface of the left elbow, without any underlying bony tenderness to palpation. There is a superficial abrasion on the dorsal aspect of the right thumb without bony tenderness to palpation. There is a contusion, without break in the skin, on the anterior aspect of the left nixon. The area is tender to palpation but there is no crepitus. SKIN: No rash; no diaphoresis NEURO: Alert; normal speech and cognition; CN's grossly intact; strength grossly intact without focal deficit. BACK: No CVA TTP. Current Patient Data Vital Signs Vital Signs Date Time Temp Pulse Resp B/P (MAP) Pulse Ox O2 Delivery O2 Flow Rate FiO2 06/13/18 12:12 98.1 91 16 112/58 (76) 97 Room Air 98.1 EKG EKG [] Radiology/Procedures Radiology/Procedures [] Course & Med Decision Making Course & Med Decision Making I recommended obtaining an x-ray, to definitively exclude the possibility of an occult fracture of the left nixon, although this is not clinically suspected. The patient declined the need for an x-ray at this time. She expressed understanding of the inability to definitively rule out an occult fracture. I discussed importance of close follow-up with her PCP and return precautions in detail. The patient does ambulate independently without any difficulty. Dragon Disclaimer Dragon Disclaimer This electronic medical record was generated, in whole or in part, using a voice recognition dictation system. Departure Departure Impression: Primary Impression: Contusion Additional Impressions: Abrasion Accidental fall Disposition: HOME, SELF-CARE Condition: STABLE Referrals: BARBY MARIE MD (PCP) Problem Qualifiers SHANICE BERMAN MD Jun 13, 2018 12:55
[2018-06-13 13:01] VITALS: BP 138/60
== END 2018-06-13 13:14 | disposition home or self-care (01) ==
LOC: ER 12:09
DX: S80.12XA Contusion of left lower leg, initial encounter (principal); S50.312A Abrasion of left elbow, initial encounter; S60.311A Abrasion of right thumb, initial encounter; Z95.5 Presence of coronary angioplasty implant and graft; I10 Essential (primary) hypertension; I25.2 Old myocardial infarction; I25.10 Atherosclerotic heart disease of native coronary artery without angina pectoris; G89.29 Other chronic pain; Z88.2 Allergy status to sulfonamides; Z88.5 Allergy status to narcotic agent; Z88.6 Allergy status to analgesic agent; Z88.8 Allergy status to other drugs, medicaments and biological substances; W01.0XXA Fall on same level from slipping, tripping and stumbling without subsequent striking against object, initial encounter; Y93.89 Activity, other specified; Y92.89 Other specified places as the place of occurrence of the external cause; Y99.8 Other external cause status
CPT/HCPCS: 99284

== ENCOUNTER → 2018-06-13 | Outpatient (CLI) | payer OTHER ==
[2018-05-23 13:08] VITALS: BP 86/53
[~2018-06-13] MED LIST changes: +ALBU2.5V8 INH; +AMIT50TA PO; +ASPI81TA50 PO; +CONTRAST GIVEN. MC PRN; +FLUT9.9S NS; +FURO-68 PO; +FURO80TA3 PO; +HYDR-2145 PO; +HYDR12.58 PO; +IOHEXOL 240 MG/ML 50ML VIAL. PO ONE; +IOHEXOL 300 MG/ML 100ML VIAL. IV ONE; +LOSA-73 PO; +MAGN400C PO; -OXYC-323 PO; +OXYC1TAB15 PO
--- NOTE | 2018-06-13 16:08 | RAD ---
CT chest and abdomen with contrast Indication: Lung cancer Technique: Postcontrast CT imaging was performed of the chest and abdomen, multiplanar reconstruction images submitted. One or more of the following individualized dose reduction techniques were utilized for this examination: 1. Automated exposure control 2. Adjustment of the mA and/or kV according to patient size 3. Use of iterative reconstruction technique. Comparison: Chest CT March 2018, no previous dedicated abdomen CT available CHEST: Findings: Previously seen small right pleural effusion has resolved. There is residual right perihilar soft tissue density mass extending to the right lower lobe and right middle lobe as well as right suprahilar region. This is somewhat difficult to compare with previous noncontrast exam although probably similar such as seen on axial images 27 series 2 versus previous image 29 series 3, maximal dimension estimated about 4.4 cm transverse by 4.7 cm AP by about 5.9 cm CC. There is associated variable bronchial luminal narrowing as seen previously. There is no new significant pulmonary nodularity. There are some tiny left lower lobe nodule such as seen on axial images 37 and 44 overall unchanged. There is emphysema with upper zone predominance. There is no pericardial effusion or pneumothorax. There is again prominent coronary calcification. There again has been a median sternotomy. Thoracic aortic caliber is within normal limits. No new suspicious bone lesion is identified by CT. IMPRESSION: 1. There is residual right perihilar mass overall similar in extent, no new pulmonary nodularity. Previously seen small right pleural effusion has resolved. 2. There is again prominent coronary calcification. 3. There is emphysema. ABDOMEN: Findings: There are again multiple clips in the left upper quadrant of the abdomen. There is no adrenal nodularity. Gallbladder is present without obvious intraluminal abnormality by CT. No new focal lesion is identified of the liver, pancreas, spleen. Both kidneys enhance, no hydronephrosis. There is atherosclerotic calcification of the abdominal aorta. Bowel is not dilated. There is no free air or free fluid. There is retained stool greater of the ascending and transverse colon. IMPRESSION: 1. There is no evidence of metastatic disease to the abdomen. Electronically signed by: Johnson Valentine MD (06/13/2018 4:04 PM) [id number]
--- NOTE | 2018-06-13 16:55 | RAD ---
BONE SCAN WHOLE BODY History: Small cell lung cancer, left hip replacement, general aches and pain Comparison: There is no previous similar exam available, correlation made with CT chest and abdomen performed the same day Findings: Whole body bone scan was performed, patient injected with 25.5 mCi technetium 99m MDP. There is no radiotracer activity in a pattern suggestive of osseous metastatic disease. There are foci of radiotracer activity of the bilateral shoulders, knees, ankles and feet more likely degenerative in etiology. Impression: 1. There is no radiotracer activity in a pattern suggestive of osseous metastatic disease, foci of radiotracer activity in a bilateral distribution likely related to degenerative change. Electronically signed by: Johnson Valentine MD (06/13/2018 4:51 PM) [id number]
== END | disposition home or self-care (01) ==
LOC: NM 09:12
PROVIDERS: ATTEND Internal Medicine Hematology & Oncology
DX: C34.90 Malignant neoplasm of unspecified part of unspecified bronchus or lung (principal); J43.8 Other emphysema; I25.10 Atherosclerotic heart disease of native coronary artery without angina pectoris; F17.210 Nicotine dependence, cigarettes, uncomplicated; Z88.5 Allergy status to narcotic agent; Z88.8 Allergy status to other drugs, medicaments and biological substances
CPT/HCPCS: 71260; 74160; 78306; 96374; A9503; Q9966; Q9967

== ENCOUNTER → 2018-08-02 | Outpatient (CLI) | payer OTHER ==
[2018-07-25 15:00] VITALS: BP 89/56
[~2018-08-02] MED LIST changes: +AMLO5TAB10 PO; -AMLO5TAB7 PO; +CIPR500T94 PO; +DOCU100C28 PO; +DOXE50CA PO; +DOXY100T PO; +METO25TA4 PO; +POTA10TA12 PO; +QUET50TA PO; +RANI150C PO
== END | disposition home or self-care (01) ==
LOC: PMGWOUND 11:10
PROVIDERS: ATTEND Preventive Medicine Undersea and Hyperbaric Medicine
DX: L97.223 Non-pressure chronic ulcer of left calf with necrosis of muscle (principal); I11.0 Hypertensive heart disease with heart failure; I50.9 Heart failure, unspecified; J43.8 Other emphysema; G89.29 Other chronic pain; I25.2 Old myocardial infarction; G47.30 Sleep apnea, unspecified; F41.9 Anxiety disorder, unspecified; E78.5 Hyperlipidemia, unspecified; I96 Gangrene, not elsewhere classified; M19.90 Unspecified osteoarthritis, unspecified site; I87.2 Venous insufficiency (chronic) (peripheral); F17.210 Nicotine dependence, cigarettes, uncomplicated; K21.9 Gastro-esophageal reflux disease without esophagitis; F32.9 Major depressive disorder, single episode, unspecified; I25.10 Atherosclerotic heart disease of native coronary artery without angina pectoris; E66.9 Obesity, unspecified; Z68.41 Body mass index [BMI] 40.0-44.9, adult; Z85.118 Personal history of other malignant neoplasm of bronchus and lung
CPT/HCPCS: 97605

== ENCOUNTER → 2018-08-07 | Outpatient (CLI) | payer OTHER ==
[2018-07-25 15:00] VITALS: BP 89/56
== END | disposition home or self-care (01) ==
LOC: PMGWOUND 08:45
PROVIDERS: ATTEND Preventive Medicine Undersea and Hyperbaric Medicine
DX: L97.223 Non-pressure chronic ulcer of left calf with necrosis of muscle (principal); I11.0 Hypertensive heart disease with heart failure; I50.9 Heart failure, unspecified; G89.29 Other chronic pain; J43.8 Other emphysema; F41.9 Anxiety disorder, unspecified; G47.30 Sleep apnea, unspecified; E78.5 Hyperlipidemia, unspecified; I25.2 Old myocardial infarction; I96 Gangrene, not elsewhere classified; M19.90 Unspecified osteoarthritis, unspecified site; I87.2 Venous insufficiency (chronic) (peripheral); F17.210 Nicotine dependence, cigarettes, uncomplicated; F32.9 Major depressive disorder, single episode, unspecified; K21.9 Gastro-esophageal reflux disease without esophagitis; I25.10 Atherosclerotic heart disease of native coronary artery without angina pectoris; E66.9 Obesity, unspecified; Z68.41 Body mass index [BMI] 40.0-44.9, adult; Z85.118 Personal history of other malignant neoplasm of bronchus and lung
CPT/HCPCS: 11042

== ENCOUNTER → 2018-08-14 | Outpatient (CLI) | payer OTHER ==
[2018-07-25 15:00] VITALS: BP 89/56
== END | disposition home or self-care (01) ==
LOC: PMGWOUND 09:41
PROVIDERS: ATTEND Preventive Medicine Undersea and Hyperbaric Medicine
DX: L97.223 Non-pressure chronic ulcer of left calf with necrosis of muscle (principal); I87.2 Venous insufficiency (chronic) (peripheral); I25.10 Atherosclerotic heart disease of native coronary artery without angina pectoris; I11.0 Hypertensive heart disease with heart failure; I50.9 Heart failure, unspecified; G89.29 Other chronic pain; J43.8 Other emphysema; I25.2 Old myocardial infarction; G47.30 Sleep apnea, unspecified; E78.5 Hyperlipidemia, unspecified; F41.9 Anxiety disorder, unspecified; I96 Gangrene, not elsewhere classified; M19.90 Unspecified osteoarthritis, unspecified site; F17.210 Nicotine dependence, cigarettes, uncomplicated; F32.9 Major depressive disorder, single episode, unspecified; E66.01 Morbid (severe) obesity due to excess calories; Z68.41 Body mass index [BMI] 40.0-44.9, adult; Z79.899 Other long term (current) drug therapy; Z85.118 Personal history of other malignant neoplasm of bronchus and lung
CPT/HCPCS: 11042

== ENCOUNTER → 2018-08-16 | Outpatient (CLI) | payer OTHER ==
[2018-07-25 15:00] VITALS: BP 89/56
--- NOTE | 2018-08-16 15:19 | RAD ---
Left lower extremity venous insufficiency ultrasound exam, 08/16/2018: HISTORY: Nonhealing leg wound Duplex evaluation of the saphenous veins in the left lower extremity was performed including grayscale, color-flow and spectral Doppler analysis. There is significant reflux in the left greater saphenous vein near the saphenofemoral junction. At this level the vein measures 8.5 mm and demonstrates a reflux time of 1.2 seconds. An accessory anterior saphenous vein is noted in the left upper thigh. It does not demonstrate significant reflux. There is a scar in the mid thigh reportedly related to vein graft harvest for CABG. The underlying saphenous vein cannot be visualized at this level. There is a 1 x 1.4 x 4.4 cm irregular hypoechoic area in the soft tissues at this level probably representing an old seroma or hematoma. Infection cannot be excluded. The left greater saphenous vein in the distal thigh and lower leg are patent and do not demonstrate significant reflux. 2 small perforating veins are noted in the mid and upper calf. They do not demonstrate significant reflux. The left lesser saphenous vein is patent and does not demonstrate significant reflux. There is mild subcutaneous edema in the lower leg. IMPRESSION: 1. Evidence of previous greater saphenous vein harvest in the mid thigh with a probable small postoperative fluid collection as instructed above. 2. Reflux is identified at the left saphenofemoral junction. 3. No significant reflux is identified in the greater saphenous vein in the left lower leg or in the left lesser saphenous vein. Electronically signed by: Pedro Pablo Jimenez MD (08/16/2018 3:16 PM) [facility]
--- NOTE | 2018-08-16 16:21 | RAD ---
Left lower extremity arterial ultrasound, 08/16/2018: HISTORY: Left lower extremity wound, smoking history Duplex evaluation of the major arteries in the left lower extremity was performed including grayscale, color-flow and spectral Doppler analysis. There are moderate scattered atherosclerotic plaques. The plaques are partially calcified. The left common femoral, superficial femoral and popliteal arteries demonstrate biphasic Doppler waveforms. There are relatively high velocities throughout these vessels. No significant focal velocity acceleration is seen to suggest high-grade focal stenosis. Patent anterior tibial and peroneal arteries are present in the left lower leg demonstrating biphasic Doppler waveforms. The left posterior tibial artery is patent demonstrating a monophasic Doppler waveform. The left dorsalis pedis artery is patent with a biphasic Doppler waveform. IMPRESSION: 1. Moderate scattered atherosclerotic plaquing throughout the left lower extremity. 2. No duplex evidence of high-grade femoral-popliteal stenosis. 3. Three-vessel arterial runoff in the left lower leg with mild degradation of the left posterior tibial Doppler waveform. Electronically signed by: Pedro Pablo Jimenez MD (08/16/2018 4:18 PM) [facility]
== END | disposition home or self-care (01) ==
LOC: US 15:31
PROVIDERS: ATTEND Preventive Medicine Undersea and Hyperbaric Medicine
DX: I70.292 Other atherosclerosis of native arteries of extremities, left leg (principal); L97.929 Non-pressure chronic ulcer of unspecified part of left lower leg with unspecified severity
CPT/HCPCS: 93926; 93971

== ENCOUNTER → 2018-08-21 | Outpatient (CLI) | payer OTHER ==
[2018-07-25 15:00] VITALS: BP 89/56
== END | disposition home or self-care (01) ==
LOC: PMGWOUND 10:56
PROVIDERS: ATTEND Preventive Medicine Undersea and Hyperbaric Medicine
DX: T79.8XXD Other early complications of trauma, subsequent encounter (principal); L97.223 Non-pressure chronic ulcer of left calf with necrosis of muscle; I11.0 Hypertensive heart disease with heart failure; I50.9 Heart failure, unspecified; G89.29 Other chronic pain; J43.8 Other emphysema; G47.30 Sleep apnea, unspecified; I25.2 Old myocardial infarction; E78.5 Hyperlipidemia, unspecified; F41.9 Anxiety disorder, unspecified; I96 Gangrene, not elsewhere classified; I87.2 Venous insufficiency (chronic) (peripheral); M19.90 Unspecified osteoarthritis, unspecified site; F17.210 Nicotine dependence, cigarettes, uncomplicated; F32.9 Major depressive disorder, single episode, unspecified; K21.9 Gastro-esophageal reflux disease without esophagitis; I25.10 Atherosclerotic heart disease of native coronary artery without angina pectoris; E66.01 Morbid (severe) obesity due to excess calories; Z68.41 Body mass index [BMI] 40.0-44.9, adult; Z88.5 Allergy status to narcotic agent; Z79.899 Other long term (current) drug therapy; Z88.2 Allergy status to sulfonamides; Z91.09 Other allergy status, other than to drugs and biological substances; Z85.118 Personal history of other malignant neoplasm of bronchus and lung
CPT/HCPCS: 11042; 29581

== ENCOUNTER → 2018-08-23 | Outpatient (CLI) | payer OTHER ==
[2018-07-25 15:00] VITALS: BP 89/56
== END | disposition home or self-care (01) ==
LOC: PMGWOUND 09:07
PROVIDERS: ATTEND Preventive Medicine Undersea and Hyperbaric Medicine
DX: T79.8XXD Other early complications of trauma, subsequent encounter (principal); L97.223 Non-pressure chronic ulcer of left calf with necrosis of muscle; I87.2 Venous insufficiency (chronic) (peripheral); I11.0 Hypertensive heart disease with heart failure; I50.9 Heart failure, unspecified; G89.29 Other chronic pain; G47.30 Sleep apnea, unspecified; I25.2 Old myocardial infarction; E78.5 Hyperlipidemia, unspecified; F41.9 Anxiety disorder, unspecified; I96 Gangrene, not elsewhere classified; J44.9 Chronic obstructive pulmonary disease, unspecified; K21.9 Gastro-esophageal reflux disease without esophagitis; F32.9 Major depressive disorder, single episode, unspecified; I25.10 Atherosclerotic heart disease of native coronary artery without angina pectoris; M19.90 Unspecified osteoarthritis, unspecified site; E66.01 Morbid (severe) obesity due to excess calories; Z68.41 Body mass index [BMI] 40.0-44.9, adult; Z88.2 Allergy status to sulfonamides; Z79.899 Other long term (current) drug therapy; Z88.5 Allergy status to narcotic agent; Z95.1 Presence of aortocoronary bypass graft; Z96.649 Presence of unspecified artificial hip joint; Z96.659 Presence of unspecified artificial knee joint; Z87.891 Personal history of nicotine dependence; Z85.118 Personal history of other malignant neoplasm of bronchus and lung; Z88.8 Allergy status to other drugs, medicaments and biological substances
CPT/HCPCS: 29581

== ENCOUNTER → 2018-08-30 | Outpatient (CLI) | payer OTHER ==
[2018-07-25 15:00] VITALS: BP 89/56
== END | disposition home or self-care (01) ==
LOC: PMGWOUND 10:10
PROVIDERS: ATTEND Preventive Medicine Undersea and Hyperbaric Medicine
DX: L97.223 Non-pressure chronic ulcer of left calf with necrosis of muscle (principal); T79.8XXD Other early complications of trauma, subsequent encounter; I11.0 Hypertensive heart disease with heart failure; I50.9 Heart failure, unspecified; J43.8 Other emphysema; G47.30 Sleep apnea, unspecified; F41.9 Anxiety disorder, unspecified; I96 Gangrene, not elsewhere classified; E78.5 Hyperlipidemia, unspecified; I25.2 Old myocardial infarction; G89.29 Other chronic pain; M19.90 Unspecified osteoarthritis, unspecified site; I87.2 Venous insufficiency (chronic) (peripheral); I25.10 Atherosclerotic heart disease of native coronary artery without angina pectoris; K21.9 Gastro-esophageal reflux disease without esophagitis; F32.9 Major depressive disorder, single episode, unspecified; F17.210 Nicotine dependence, cigarettes, uncomplicated; E66.01 Morbid (severe) obesity due to excess calories; Z68.41 Body mass index [BMI] 40.0-44.9, adult; Z88.5 Allergy status to narcotic agent; Z88.2 Allergy status to sulfonamides; Z79.899 Other long term (current) drug therapy; Z95.1 Presence of aortocoronary bypass graft; Z96.649 Presence of unspecified artificial hip joint; Z96.659 Presence of unspecified artificial knee joint; Z85.118 Personal history of other malignant neoplasm of bronchus and lung; Z88.8 Allergy status to other drugs, medicaments and biological substances
CPT/HCPCS: 97597

== ENCOUNTER → 2018-09-06 | Outpatient (CLI) | payer OTHER ==
[2018-07-25 15:00] VITALS: BP 89/56
== END | disposition home or self-care (01) ==
LOC: PMGWOUND 10:32
PROVIDERS: ATTEND Preventive Medicine Undersea and Hyperbaric Medicine
DX: T79.8XXD Other early complications of trauma, subsequent encounter (principal); L97.223 Non-pressure chronic ulcer of left calf with necrosis of muscle; I87.2 Venous insufficiency (chronic) (peripheral); I11.0 Hypertensive heart disease with heart failure; I50.9 Heart failure, unspecified; G89.29 Other chronic pain; E78.5 Hyperlipidemia, unspecified; G47.30 Sleep apnea, unspecified; F41.9 Anxiety disorder, unspecified; I25.2 Old myocardial infarction; J43.8 Other emphysema; I96 Gangrene, not elsewhere classified; M19.90 Unspecified osteoarthritis, unspecified site; K21.9 Gastro-esophageal reflux disease without esophagitis; I25.10 Atherosclerotic heart disease of native coronary artery without angina pectoris; F17.210 Nicotine dependence, cigarettes, uncomplicated; F32.9 Major depressive disorder, single episode, unspecified; E66.01 Morbid (severe) obesity due to excess calories; Z68.41 Body mass index [BMI] 40.0-44.9, adult; Z79.899 Other long term (current) drug therapy; Z88.5 Allergy status to narcotic agent; Z88.2 Allergy status to sulfonamides; Z95.1 Presence of aortocoronary bypass graft; Z88.8 Allergy status to other drugs, medicaments and biological substances; Z85.118 Personal history of other malignant neoplasm of bronchus and lung; X58.XXXD Exposure to other specified factors, subsequent encounter
CPT/HCPCS: 11042; 29581

== ENCOUNTER → 2019-04-23 | Outpatient (CLI) | payer OTHER ==
[2018-07-25 15:00] VITALS: BP 89/56
[~2019-04-23] MED LIST changes: -EZET10TA18 PO; +EZET10TA20 PO
--- NOTE | 2019-04-24 08:46 | RAD ---
DATE: 04/23/2019 EXAM: MAMMO MADDY SCREENING BILATERAL HISTORY: Routine screening COMPARISON: 10/27/2016 screen mammogram This study was interpreted with the benefit of Computerized Aided Detection (CAD). Breast Density: FATTY The breast parenchyma is primarily fatty replaced. Breast parenchyma level density A. FINDINGS: Interval increased right upper-outer breast calcifications are evident. Some of these calcifications are coarse while others are punctate. Questionable distortion or scarring involving the right upper breast on the MLO projection particular is evident slightly inferior to these calcifications. No dominant mass. Right axillary lymph nodes are new in the interval but have a benign appearance. No suspicious left breast findings. IMPRESSION: New calcifications and possible distortion at the right upper outer breast. BI-RADS CATEGORY: 0 INCOMPLETE: NEEDS ADDITIONAL IMAGING EVALUATION AND/OR PRIOR MAMMOGRAMS FOR COMPARISON. RECOMMENDED FOLLOW-UP: ADD ADDITIONAL IMAGING. Spot magnification imaging of the right upper-outer breast is recommended. Medial lateral view of the right breast or lateral medial view of the right breast is recommended. Ultrasound may be needed. PQRS compliance statement: Patient information was entered into a reminder system with a target due date for the next mammogram. Mammography is a sensitive method for finding small breast cancers, but it does not detect them all and is not a substitute for careful clinical examination. A negative mammogram does not negate a clinically suspicious finding and should not result in delay in biopsying a clinically suspicious abnormality. "Our facility is accredited by the [employer] Mammography Program."
== END | disposition home or self-care (01) ==
LOC: MAMMO 13:27
PROVIDERS: ATTEND Internal Medicine
DX: Z12.31 Encounter for screening mammogram for malignant neoplasm of breast (principal); N64.89 Other specified disorders of breast
CPT/HCPCS: 77063; 77067

== ENCOUNTER → 2019-05-19 | Outpatient (CLI) | payer MEDICARE, OTHER ==
[2018-07-25 15:00] VITALS: BP 89/56
[~2019-05-19] MED LIST changes: -POTA10TA12 PO; +POTASSIUM CHLO10 ME1 PO
--- NOTE | 2019-05-20 19:16 | RAD ---
DATE: 05/19/2019 EXAM: DIGITAL DIAGNOSTIC RT HISTORY: Abnormal mammogram COMPARISON: 04/23/2019 and 10/27/2016 mammographic exams This study was interpreted with the benefit of Computerized Aided Detection (CAD). Breast Density: SCATTERED The breast parenchyma shows scattered fibroglandular densities. Breast parenchyma level B. FINDINGS: Coarse calcifications are noted on spot magnification imaging of the right upper-outer breast. Small punctate calcifications also present. IMPRESSION: Calcifications which probably represent fat necrosis. BI-RADS CATEGORY: 3 PROBABLY BENIGN FINDING(S)-SHORT INTERVAL FOLLOW-UP SUGGESTED RECOMMENDED FOLLOW-UP: 6M 6 MONTH FOLLOW-UP. Six-month follow-up mammographic imaging of the right breast is recommended to assess stability of calcifications. PQRS compliance statement: Patient information was entered into a reminder system with a target due date for the next mammogram. Mammography is a sensitive method for finding small breast cancers, but it does not detect them all and is not a substitute for careful clinical examination. A negative mammogram does not negate a clinically suspicious finding and should not result in delay in biopsying a clinically suspicious abnormality. "Our facility is accredited by the [employer] Mammography [employer]."
== END | disposition home or self-care (01) ==
LOC: MAMMO 12:43
PROVIDERS: ATTEND Internal Medicine
DX: R92.1 Mammographic calcification found on diagnostic imaging of breast (principal); R92.2 Inconclusive mammogram
CPT/HCPCS: 77065

== ENCOUNTER → 2020-02-17 | Outpatient (CLI) | payer MEDICARE, OTHER ==
[2018-07-25 15:00] VITALS: BP 89/56
[~2020-02-17] MED LIST changes: -OXYC15TA PO; +OXYC15TA3 PO; +WARF1TAB2 PO; -WARF1TAB74 PO
--- NOTE | 2020-02-17 12:53 | RAD ---
DATE: 02/17/2020 12:15 PM EXAM: MAMMO MADDY DIAG RT HISTORY: Short-term follow-up probably benign right breast calcifications COMPARISON: 10/27/2016, 05/19/2019 and bilateral mammogram of 04/23/2019. CC and MLO views of the right breast were performed. Tomosynthesis was also performed in CC and MLO projections. This study was interpreted with the benefit of Computerized Aided Detection (CAD). FINDINGS: Breast Density: FATTY The Breast Parenchyma is primarily fatty replaced. Breast parenchyma level density A. The cluster of calcifications in the upper outer right breast show further coarsening in a pattern typical of maturing dystrophic calcifications. No suspicious masses, microcalcifications or architectural distortion is present to suggest malignancy.The visualized axilla is unremarkable. IMPRESSION: No mammographic evidence of malignancy. BI-RADS CATEGORY: 2 BENIGN FINDING(S) RECOMMENDED FOLLOW-UP: 12M 12 MONTH FOLLOW-UP Annual screening mammography is recommended, unless clinically indicated sooner based on symptoms or change in physical exam. She will next be due for bilateral mammographic screening after April 23, 2020.. PQRS compliance statement: Patient information was entered into a reminder system with a target due date 04/24/2020 for the next mammogram. Mammography is a sensitive method for finding small breast cancers, but it does not detect them all and is not a substitute for careful clinical examination. A negative mammogram does not negate a clinically suspicious finding and should not result in delay in biopsying a clinically suspicious abnormality. "Our facility is accredited by the [employer] Mammography Program."
== END | disposition home or self-care (01) ==
LOC: MAMMO 12:07
PROVIDERS: ATTEND Internal Medicine
DX: R92.1 Mammographic calcification found on diagnostic imaging of breast (principal)
CPT/HCPCS: 77065; G0279; 77061

== ENCOUNTER 2020-04-16 19:25 | Inpatient (IN) | payer OTHER, MEDICAID ==
[~2020-04-16] VITALS: Ht 165.1 cm; Wt 116.8 kg
[~2020-04-16 19:25] MED LIST changes: +AMLO-186 PO; -AMLO5TAB10 PO
[2020-04-16] MEDS ORDERED: LIDOCAINE 1%/EPI 1:100,000 20 ML VIAL. SQ ONE (20:15)
--- NOTE | 2020-04-16 20:23 | ED.ADGEN ---
Past Medical History Past Medical History: CAD, Cancer, Hypertension, DE, Pneumonia Additional Past Medical Histor: CARDIAC ISSUES, RADIATION AND CHEMO FOR RIGHT LUNG CA, CHRONIC BACK PAIN Past Surgical History: Coronary Bypass Surgery, Knee Replacement, Other Additional Past Surgical Histo: LEFT SHOULDER REPLACEMENT Smoking Status: Current Some Day Smoker Alcohol Use: None Drug Use: None General Adult EDM: Chief Complaint: MECHANICAL FALL HPI: HPI: Patient is a 64 year old female who presents to emergency room with complaints of right anterior knee pain and swelling and left fourth and fifth digit pain after tripping and falling at a gas station this evening. Patient states that there was a rug in the gas station shooting caught her foot on and tripped. She denies any loss of consciousness, head, neck, or back pain. Patient complains of skin tears to her right anterior knee and left fourth and fifth digits. She states that she also fell 2 days ago at home and has a skin tear to her left elbow. She currently denies any pain in her left elbow. She denies any shortness of breath, abdominal pain, nausea, or vomiting since the fall. She currently rates the pain a 9 right and left hand 8 out of 10 on the pain scale, she denies any alleviating factors, the pain is worse with movement and palpation. Patient states her last tetanus shot was less than 5 years ago. Review of Systems: Review of Systems: Complete ROS is negative unless otherwise noted in HPI. Current Medications: Current Medications Medications (Trade) Dose Ordered Sig/[facility] Start Time Stop Time Status Last Admin Dose Admin Lidocaine/ Epinephrine (LIDOCAINE 1%-EPI 1:100,000 Multi-Dose) 20 ml 1X ONCE 04/16/20 20:15 04/16/20 20:20 DC 04/16/20 21:00 20 ML Allergies: Allergies: Allergies Coded Allergies Type Severity Reaction Last Updated Verified tramadol Allergy Severe Seizures 09/04/16 Yes Sulfa (Sulfonamide Antibiotics) Allergy Intermediate Itching & GI upset 09/04/16 Yes lorazepam Allergy Intermediate Hives 09/04/16 Yes propoxyphene napsylate Allergy Intermediate Hives & GI upset 09/04/16 Yes morphine Adverse Reaction Severe 09/04/16 Yes ibuprofen Adverse Reaction Intermediate NAUSEA/VOMITING 09/04/16 Yes Physical Exam: PE: See Above Constitutional: Well developed, well nourished, no acute distress, non-toxic appearance, morbidly obese. [] HENT: Normocephalic, atraumatic, bilateral external ears normal, nose normal. [] Eyes: PERRLA, EOMI, conjunctiva normal, no discharge. [] Neck: Normal range of motion, no tenderness,no stridor. [] Cardiovascular:Heart rate regular rhythm Lungs & Thorax: Bilateral breath sounds clear to auscultation in upper lobes, diminished with scattered wheezes posterior [] Skin: Warm, dry; scabbed skin tear noted to the left elbow, no active bleeding, fresh skin tear to the fifth knuckle and to the fourth finger proximal to the PIP, no active bleeding; large hematoma noted to right anterior knee with flap laceration present, bleeding controlled bandage in place, no visible foreign body. Back: No tenderness Extremities: Right knee: Anterior TTP, no crepitus, limited range of motion due to pain, 2+ edema, no cyanosis; left hand: Tenderness to palpation over the fifth knuckle and the right fourth digit between the PIP and the knuckle, no crepitus, no obvious deformity, no clubbing, ROM intact, no edema. [] Neurologic: Alert and oriented X 3, normal motor function, normal sensory fun ction, no focal deficits noted. [] Psychologic: Affect normal, judgement normal, mood normal. [] Current Patient Data: Labs: Laboratory Tests Test 04/16/20 21:53 White Blood Count 10.2 x10^3/uL (4.0-11.0) Red Blood Count 4.69 x10^6/uL (3.50-5.40) Hemoglobin 13.4 g/dL (12.0-15.5) Hematocrit 41.2 % (36.0-47.0) Mean Corpuscular Volume 88 fL (79-100) Mean Corpuscular Hemoglobin 29 pg (25-35) Mean Corpuscular Hemoglobin Concent 32 g/dL (31-37) Red Cell Distribution Width 16.5 % (11.5-14.5) H Platelet Count 336 x10^3/uL (140-400) Neutrophils (%) (Auto) 80 % (31-73) H Lymphocytes (%) (Auto) 10 % (24-48) L Monocytes (%) (Auto) 6 % (0-9) Eosinophils (%) (Auto) 3 % (0-3) Basophils (%) (Auto) 1 % (0-3) Neutrophils # (Auto) 8.2 x10^3/uL (1.8-7.7) H Lymphocytes # (Auto) 1.1 x10^3/uL (1.0-4.8) Monocytes # (Auto) 0.6 x10^3/uL (0.0-1.1) Eosinophils # (Auto) 0.3 x10^3/uL (0.0-0.7) Basophils # (Auto) 0.1 x10^3/uL (0.0-0.2) Laboratory Tests 04/16/20 21:53 Vital Signs: Vital Signs Date Time Temp Pulse Resp B/P (MAP) Pulse Ox O2 Delivery O2 Flow Rate FiO2 04/16/20 22:20 134 94 04/16/20 21:32 35 04/16/20 19:39 97.9 120/72 (88) Room Air 97.9 EKG: EK-A. fib with RVR, rate of 130, no STEMI, read by Dr. Escobar [] Heart Score: Risk Factors: Risk Factors: DM, Current or recent (<one month) smoker, HTN, HLP, family history of CAD, obesity. Risk Scores: Score 0 - 3: 2.5% MACE over next 6 weeks - Discharge Home Score 4 - 6: 20.3% MACE over next 6 weeks - Admit for Clinical Observation Score 7 - 10: 72.7% MACE over next 6 weeks - Early Invasive Strategies Radiology/Procedures: Radiology/Procedures: PROCEDURE: HAND LEFT 3V EXAM: HAND LEFT 3V 04/16/2020 8:14 PM CLINICAL INDICATION: Fourth and fifth digit pain after fall from standing. COMPARISON:None TECHNIQUE:3 views of the left hand FINDINGS:No acute fracture. Alignment is normal. Joint spaces are maintained. No focal soft tissue abnormality. IMPRESSION:No acute osseous abnormality. PROCEDURE: KNEE RIGHT 3V EXAM: KNEE RIGHT 3V 04/16/2020 8:14 PM CLINICAL INDICATION:Laceration on knee, pain after fall from standing a gas station. COMPARISON:None TECHNIQUE:3 views of the right knee FINDINGS:No acute fracture. Alignment is normal. There is mild medial compartment narrowing and small tricompartmental osteophytes. Small joint effusion. IMPRESSION: No acute osseous abnormality. Small joint effusion and mild tricompartmental degenerative joint disease. Laceration Repair by me: Anesthesia: 1% lidocaine locally with epinephrine Location: Right anterior kneeflap laceration Tendon/Joint/Nerves: No injury Foreign body: None detected after copious irrigation and exploration with NS and chlorhexidine Technique: 9 simple Interrupted Sutures with 4-0 Ethilon Complexity: No subcutaneous sutures/mucosal repair/edge excision Post Closure Length: 5 cm Patient's bleeding was easily controlled in the department and there is no indication of anemia. No evidence of compartment syndrome, neurologic injury, vascular injury, open joint, tendon laceration, or foreign body. Patient is appropriate for outpatient follow up. [][facility] [address] [place] [address] IMAGING REPORT Signed PATIENT: MARTHA DYER JACCOUNT: [id number] : 1955 LOCATION: [address] [place] [address] AGE: 64 SEX: F EXAM STATUS: ADM IN ORD. PHYSICIAN: ANATOLY AGUILERA APRN REASON: afib with rvr, cardiac workup PROCEDURE: CHEST AP ONLY EXAM: 1. CHEST ONE VIEW. 2. RIGHT SHOULDER 3 VIEWS. HISTORY: Atrial fibrillation, fall, right shoulder pain. Lung cancer. COMPARISON: 05/22/2018. FINDINGS: A frontal view of the chest is obtained. Enlargement of the right hilum is consistent with posttreatment changes in the setting of lung cancer. There is no clear interval change. There are changes of coronary artery bypass grafting. There is no pneumothorax or pleural effusion. The heart is not enlarged. There are atherosclerotic calcifications of the aorta. Changes of internal fixation of a left proximal humeral fracture are noted. 3 views of the right shoulder are obtained. No fractures are appreciated at the right shoulder. Acromioclavicular osteoarthritis is moderate. Glenohumeral joint spaces and alignment are maintained. IMPRESSION: 1. Stable posttreatment changes at the right hilum. Ongoing CT follow-up is recommended. 2. No fracture. Electronically signed by: Suzanne Barry MD (04/17/2020 12:38 AM) [facility] DICTATED and SIGNED BY: ALEX BARRY MD DATE: 04/17/20 0038 Course & Med Decision Making: Course & Med Decision Making Pertinent Labs and Imaging studies reviewed. (See chart for details) 5-RN notified this practitioner the patient's heart rate jumped into the 130s. Per the monitor patient appears to be in A. fib. Will order labs and EKG. 4-spoke with Dr. Carlisle who is the admitting physician, and care was assumed following discussion of patient. Will admit patient for A. fib RVR, right knee contusion, right knee pain, right knee laceration, and multiple skin tears. Will consult cardiology and admit patient to the CVC floor. Advised Dr. Carlisle that the CMP and cardiac enzymes are not back yet. Also the patient's chest x- ray and right shoulder x-ray have just been read and have not been interpreted as of yet. Patient was given 10 mg of Cardizem IV push followed by a Cardizem drip for treatment of the A. fib RVR Patient's vital signs are stable, heart rate is improving. Patient remains afebrile, appears nontoxic, respirations even and unlabored. Patient will be admitted to the CVC floor. Patient's case and plan of care also discussed with Dr. Escobar [] Dragon Disclaimer: Dragon Disclaimer: This electronic medical record was generated, in whole or in part, using a voice recognition dictation system. Departure Departure Impression: Primary Impression: Atrial fibrillation with RVR Additional Impressions: Contusion of right knee, initial encounter Laceration of right knee without complication Right anterior knee pain Multiple skin tears Disposition: ADMITTED INPT THIS HOSP Admitting Physician: Marco Marie Condition: STABLE Referrals: MARCO MARIE MD (PCP) Problem Qualifiers Additional Impressions: Laceration of right knee without complication Encounter type: initial encounter Qualified Codes: S81.011A - Laceration without foreign body, right knee, initial encounter ANATOLY AGUILERA APRN Apr 16, 2020 20:23 MATHEW ESCOBAR MD Apr 16, 2020 23:59
--- NOTE | 2020-04-16 21:28 | RAD ---
EXAM: HAND LEFT 3V 04/16/2020 8:14 PM CLINICAL INDICATION: Fourth and fifth digit pain after fall from standing. COMPARISON:None TECHNIQUE:3 views of the left hand FINDINGS:No acute fracture. Alignment is normal. Joint spaces are maintained. No focal soft tissue abnormality. IMPRESSION:No acute osseous abnormality. Electronically signed by: Daniela Gooden MD (04/16/2020 9:26 PM) [id number]
[2020-04-16 22:04] LABS: BASO # 0.1 x10^3/uL (0.0-0.2); BASO % 1 % (0-3); EOS # 0.3 x10^3/uL (0.0-0.7); EOS % 3 % (0-3); HEMATOCRIT 41.2 % (36.0-47.0); HEMOGLOBIN 13.4 g/dL (12.0-15.5); LYMPH # 1.1 x10^3/uL (1.0-4.8); LYMPH % 10 % (24-48); MEAN CORPUSCULAR HEMOGLOBIN 29 pg (25-35); MEAN CORPUSCULAR HGB CONC 32 g/dL (31-37); MEAN CORPUSCULAR VOLUME 88 fL (79-100); MONO # 0.6 x10^3/uL (0.0-1.1); MONO % 6 % (0-9); NEUT # 8.2 x10^3/uL (1.8-7.7); NEUT % 80 % (31-73); PLATELET COUNT 336 x10^3/uL (140-400); RED BLOOD COUNT 4.69 x10^6/uL (3.50-5.40); RED CELL DISTRIBUTION WIDTH 16.5 % (11.5-14.5); WHITE BLOOD COUNT 10.2 x10^3/uL (4.0-11.0)
--- NOTE | 2020-04-16 22:28 | RAD ---
EXAM: KNEE RIGHT 3V 04/16/2020 8:14 PM CLINICAL INDICATION:Laceration on knee, pain after fall from standing a gas station. COMPARISON:None TECHNIQUE:3 views of the right knee FINDINGS:No acute fracture. Alignment is normal. There is mild medial compartment narrowing and small tricompartmental osteophytes. Small joint effusion. IMPRESSION: No acute osseous abnormality. Small joint effusion and mild tricompartmental degenerative joint disease. Electronically signed by: Daniela Gooden MD (04/16/2020 10:25 PM) [id number]
[2020-04-16] MEDS ORDERED: dilTIAZem IV PUSH 25 MG/5 ML VIAL IVP ONE (22:30)
[2020-04-16] MEDS ORDERED: DILTIAZEM HCL 125 MG in IV NORMAL SALINE 100ML 100 ML IV PRN (23:00)
[2020-04-16] MEDS ORDERED: fentaNYL PF VIAL 100 MCG/2 ML VIAL IV PRN (23:00)
[2020-04-16 23:34] LABS: CALCIUM 9.7 mg/dL (8.5-10.1); CREATININE 0.8 mg/dL (0.6-1.0); GFR 72.4; POTASSIUM 3.9 mmol/L (3.5-5.1)
[2020-04-16 23:39] LABS: ALBUMIN 3.6 g/dL (3.4-5.0); TOTAL BILIRUBIN 0.3 mg/dL (0.2-1.0); TOTAL PROTEIN 7.2 g/dL (6.4-8.2)
[2020-04-17 00:15] VITALS: BP 100/62
--- NOTE | 2020-04-17 00:41 | RAD ---
EXAM: 1. CHEST ONE VIEW. 2. RIGHT SHOULDER 3 VIEWS. HISTORY: Atrial fibrillation, fall, right shoulder pain. Lung cancer. COMPARISON: 05/22/2018. FINDINGS: A frontal view of the chest is obtained. Enlargement of the right hilum is consistent with posttreatment changes in the setting of lung cancer. There is no clear interval change. There are changes of coronary artery bypass grafting. There is no pneumothorax or pleural effusion. The heart is not enlarged. There are atherosclerotic calcifications of the aorta. Changes of internal fixation of a left proximal humeral fracture are noted. 3 views of the right shoulder are obtained. No fractures are appreciated at the right shoulder. Acromioclavicular osteoarthritis is moderate. Glenohumeral joint spaces and alignment are maintained. IMPRESSION: 1. Stable posttreatment changes at the right hilum. Ongoing CT follow-up is recommended. 2. No fracture. Electronically signed by: Suzanne Barry MD (04/17/2020 12:38 AM) [facility]ITAL[facility]
[2020-04-17] MEDS ORDERED: OMEP20CA16 PO (00:53)
[2020-04-17] MEDS ORDERED: QUEtiapine 25 MG TABLET. PO SCH (01:30)
[2020-04-17] MEDS ORDERED: ALBUTEROL SULFATE 2.5 MG/3 ML NEBU. INH PRN (01:30)
[2020-04-17] MEDS ORDERED: DOXEPIN HCL 25 MG CAPSULE. PO SCH (01:30)
[2020-04-17] MEDS ORDERED: AMITRIPTYLINE HCL 25 MG TABLET. PO SCH (01:30)
[2020-04-17] MEDS ORDERED: ATORVASTATIN CALCIUM 40 MG TABLET. PO SCH (01:30)
[2020-04-17] MEDS: CYCLOBENZAPRINE 10 MG TABLET. PO SCH ×2 (01:40→08:36)
[2020-04-17 03:00] VITALS: BP 89/51
[2020-04-17] MEDS ORDERED: METOPROLOL TARTRATE 5 MG/5 ML VIAL. IVP ONE (07:00)
[2020-04-17] MEDS ORDERED: DIGOXIN IV 500 MCG/2 ML AMPUL. IV ONE (07:00)
[2020-04-17] MEDS ORDERED: PANTOPRAZOLE 40 MG TABLET.DR. PO SCH (07:30)
[2020-04-17 08:00] VITALS: BP 143/71
[2020-04-17] MEDS ORDERED: FLUoxetine HCL 20 MG CAPSULE PO SCH (08:00)
[2020-04-17] MEDS ORDERED: FLUoxetine HCL 20 MG CAPSULE ONE (09:00)
[2020-04-17] MEDS ORDERED: DOCUSATE SODIUM 100 MG CAPSULE. PO SCH (09:00)
[2020-04-17] MEDS ORDERED: ENOXAPARIN 40 MG/0.4 ML SYRINGE. SQ SCH (09:00)
[2020-04-17] MEDS ORDERED: EZETIMIBE 10 MG TABLET. PO SCH (09:00)
[2020-04-17] MEDS ORDERED: MULTIVITAMIN with MINERAL TABLET. PO SCH (09:00)
--- NOTE | 2020-04-17 09:15 | PDOC2 ---
CARDIOLOGY CONSULT NOTE DATE OF SERVICE: DATE: 04/17/20 TIME: 09:14 CHIEF COMPLAINT: Fall HPI: Pleasant 64 y.o woman presenting for fall. Noted to have afib with rvr, now back in SR. Denies any chest pain. PMHX: See below SOCHX: No alcohol, tob or illicit.s FAMHX: NC CURRENT MEDS: Current Medications Medications (Trade) Dose Ordered Sig/[facility] Route PRN Reason Start Time Stop Time Status Last Admin Dose Admin Lidocaine/ Epinephrine (LIDOCAINE 1%-EPI 1:100,000 Multi-Dose) 20 ml 1X ONCE SQ 04/16/20 20:15 04/16/20 20:20 DC 04/16/20 21:00 Diltiazem HCl (Cardizem Iv Push) 10 mg 1X ONCE IVP 04/16/20 22:30 04/16/20 22:31 DC 04/16/20 22:28 Diltiazem HCl 125 mg/Sodium Chloride 125 ml @ 5 mls/hr CONT PRN IV SEE I/O RECORD 04/16/20 23:00 04/16/20 23:14 Fentanyl Citrate (Fentanyl 2ml Vial) 50 mcg PRN Q2HR PRN IV SEVERE PAIN 7-10 04/16/20 23:00 04/17/20 22:59 04/16/20 23:12 Amitriptyline HCl (Elavil) 25 mg QHS PO 04/17/20 01:30 04/17/20 01:40 Atorvastatin Calcium (Lipitor) 40 mg HS PO 04/17/20 01:30 04/17/20 01:40 Docusate Sodium (Colace) 100 mg QODAY PO 04/17/20 09:00 04/17/20 08:36 EZETIMIBE (Zetia) 10 mg DAILY PO 04/17/20 09:00 04/17/20 08:37 Cyclobenzaprine HCl (Flexeril) 10 mg TID PO 04/17/20 01:30 04/17/20 08:36 Doxepin HCl (SINEquan) 50 mg QHS PO 04/17/20 01:30 04/17/20 01:41 Fluoxetine HCl (PROzac) 40 mg DAILY08 PO 04/17/20 08:00 04/17/20 08:36 Multivitamins (Thera M Plus) 1 tab DAILY PO 04/17/20 09:00 04/17/20 08:36 Pantoprazole Sodium (Protonix) 40 mg DAILYAC PO 04/17/20 07:30 04/17/20 08:36 Quetiapine Fumarate (SEROquel) 50 mg QHS PO 04/17/20 01:30 04/17/20 01:40 Digoxin (Lanoxin) 500 mcg 1X ONCE IV 04/17/20 07:00 04/17/20 07:06 DC 04/17/20 07:17 Metoprolol Tartrate (Lopressor Vial) 5 mg 1X ONCE IVP 04/17/20 07:00 04/17/20 07:06 DC 04/17/20 07:54 ALLERGIES: Allergies Coded Allergies Type Severity Reaction Last Updated Verified tramadol Allergy Severe Seizures 09/04/16 Yes Sulfa (Sulfonamide Antibiotics) Allergy Intermediate Itching & GI upset 09/04/16 Yes lorazepam Allergy Intermediate Hives 09/04/16 Yes propoxyphene napsylate Allergy Intermediate Hives & GI upset 09/04/16 Yes morphine Adverse Reaction Severe 09/04/16 Yes ibuprofen Adverse Reaction Intermediate NAUSEA/VOMITING 09/04/16 Yes ROS: NC PHYSICAL EXAM: Vital Signs/I&O: Vital Signs Date Time Temp Pulse Resp B/P (MAP) Pulse Ox O2 Delivery O2 Flow Rate FiO2 04/17/20 08:00 97.7 82 18 143/71 (95) 90 Room Air 97.7 I & O 04/16/20 04/16/20 04/17/20 15:00 23:00 07:00 Output Total 0 ml Balance 0 ml Physical Exam: GEN.: No apparent distress. Alert and oriented. HEENT: Head is normocephalic, atraumatic NECK: Supple. LUNGS: Clear to auscultation. HEART: RRR, S1, S2 present. Peripheral pulses intact ABDOMEN: Soft, nontender. Positive bowel sounds. EXTREMITIES: Without any cyanosis. NEUROLOGIC: Normal speech, normal tone PSYCHIATRIC: Normal affect, normal mood. SKIN: No ulcerations DIAGNOSTIC TESTING: Reviewed Lab Laboratory Tests Test 04/16/20 21:53 04/16/20 23:15 White Blood Count 10.2 x10^3/uL (4.0-11.0) Red Blood Count 4.69 x10^6/uL (3.50-5.40) Hemoglobin 13.4 g/dL (12.0-15.5) Hematocrit 41.2 % (36.0-47.0) Mean Corpuscular Volume 88 fL (79-100) Mean Corpuscular Hemoglobin 29 pg (25-35) Mean Corpuscular Hemoglobin Concent 32 g/dL (31-37) Red Cell Distribution Width 16.5 % (11.5-14.5) H Platelet Count 336 x10^3/uL (140-400) Neutrophils (%) (Auto) 80 % (31-73) H Lymphocytes (%) (Auto) 10 % (24-48) L Monocytes (%) (Auto) 6 % (0-9) Eosinophils (%) (Auto) 3 % (0-3) Basophils (%) (Auto) 1 % (0-3) Neutrophils # (Auto) 8.2 x10^3/uL (1.8-7.7) H Lymphocytes # (Auto) 1.1 x10^3/uL (1.0-4.8) Monocytes # (Auto) 0.6 x10^3/uL (0.0-1.1) Eosinophils # (Auto) 0.3 x10^3/uL (0.0-0.7) Basophils # (Auto) 0.1 x10^3/uL (0.0-0.2) Sodium Level 144 mmol/L (136-145) Potassium Level 3.9 mmol/L (3.5-5.1) Chloride Level 105 mmol/L (98-107) Carbon Dioxide Level 29 mmol/L (21-32) Anion Gap 10 (6-14) Blood Urea Nitrogen 14 mg/dL (7-20) Creatinine 0.8 mg/dL (0.6-1.0) Estimated GFR (Cockcroft-Gault) 72.4 BUN/Creatinine Ratio 18 (6-20) Glucose Level 109 mg/dL (70-99) H Calcium Level 9.7 mg/dL (8.5-10.1) Total Bilirubin 0.3 mg/dL (0.2-1.0) Aspartate Amino Transf (AST/SGOT) 16 U/L (15-37) Alkaline Phosphatase 137 U/L (46-116) H Creatine Kinase 75 U/L (26-192) Creatine Kinase MB (Mass) 1.1 ng/mL (0.0-3.6) Creatine Kinase MB Relative Index 1.5 % (0-4) Total Protein 7.2 g/dL (6.4-8.2) Albumin 3.6 g/dL (3.4-5.0) Albumin/Globulin Ratio 1.0 (1.0-1.7) Laboratory Tests 04/16/20 21:53 04/16/20 23:15 ASSESSMENT: 1. Fall with afib with RVR. 2. PLAN: 1. Amiodarone 200mg bid x 7 days, then 200mg daily. 2. Outpt event monitoring and f/u in 4-6 weeks. 3. Outpt echo. 4. Hold anticoagulation given frequent falls until afib burden has been determined. 5. Metoprolol 25mg bid. DAVID ALLEN MD Apr 17, 2020 09:15
[2020-04-17] MEDS ORDERED: AMIODARONE 150 MG in IV DEXTROSE 5% 100ML 100 ML IV ONE (10:00)
--- NOTE | 2020-04-17 10:43 | PDOC ---
Provider Note Date of Service: DATE: 04/17/20 TIME: 10:42 Provider Note Combined H&P and discharge summary dictated #[id number] Justifications for Admission Other Justification CRYSTAL AGUILAR MD Apr 17, 2020 10:43
[2020-04-17] MEDS ORDERED: HYDR-2765 PO (10:50)
[2020-04-17] MEDS ORDERED: AMIO200T6 PO (10:50)
[2020-04-17] MEDS ORDERED: METO25TA4 PO (10:50)
--- NOTE | 2020-04-17 10:52 | DISCH ---
DISCHARGE INSTRUCTIONS Condition on Discharge Condition on Discharge: Stable Activity After Discharge Activity Instructions for Disc: Activity as tolerated Bathing Instructions: Shower-keep dressing dry Lifting Instructions after Dis: No heavy lifting Exercise Instruction after Dis: Progress as tolerated Weight Bearing Status after Di: As tolerated Diet after Discharge Diet after Discharge: Cardiac, Diabetic No Calorie Level Diet Texture: Regular Liquid Texture: Thin Liquid Wound Incision Care Wound/Incision Care: Change dressing Other wound/incision instructi: Continue wound care Checks after Discharge Checks after discharge: Check blood press - daily, Weigh Yourself Daily Contacting the DRNaomi after DC Call your doctor for: Concerns you may have Follow-Up Follow up with: Dr. Nair in 5 days Follow Up With: as diirected Treatment/Equipment after DC Adaptive Equipment Issued: None CRYSTAL AGUILAR MD Apr 17, 2020 10:52
[2020-04-17 10:55] VITALS: BP 129/59
--- NOTE | 2020-04-17 11:14 | HP ---
ADMIT DATE: 04/17/2020 COMBINED HISTORY AND PHYSICAL AND DISCHARGE SUMMARY PRIMARY CARE PHYSICIAN: Marco Nair MD HISTORY OF PRESENT ILLNESS: This 64-year-old female fell yesterday when she tripped on a mat. She had multiple superficial lacerations, especially on the right knee, right hand and also the left elbow. Because of the injury, she came to the Emergency Room. In the Emergency Room, the patient was noted to have an episode of atrial fibrillation with fast ventricular rate of 130 per minute. The patient was started on IV Cardizem and admitted for further evaluation and management. REVIEW OF SYSTEMS: At present time, the patient denies any cold, congestion, fever, chills, dyspnea, dizziness, or palpitations. She does admit to pain in her joints and lacerations. She has chronic cough from her COPD. Other systems reviewed and are negative. PAST MEDICAL HISTORY: The patient has a history of coronary artery disease, lung cancer and had radiation and chemotherapy, hypertension, hyperlipidemia and anemia of chronic disease. PAST SURGICAL HISTORY: Includes coronary artery bypass graft surgery, knee replacement, and radiation treatment to lung cancer. ALLERGIES: THE PATIENT IS ALLERGIC TO SULFA, IBUPROFEN, LORAZEPAM, MORPHINE, DARVOCET, TRAMADOL CAUSES NAUSEA AND VOMITING. SHE IS ABLE TO TAKE OXYCODONE. MEDICATIONS: Reviewed and reconciled. SOCIAL HISTORY: The patient smoked for at least 30 years. FAMILY HISTORY: Positive for heart disease. PHYSICAL EXAMINATION: VITAL SIGNS: Temperature 98 degrees Fahrenheit, pulse 112 to 132 per minute on admission, respirations 18 per minute, blood pressure 89/51 mmHg. This morning, blood pressure is 143/71 mmHg, pulse is 82 per minute and now she is in sinus rhythm. EYES: Pupils reacting to light. Conjunctivae pale. Sclerae muddy. HENT: Unremarkable. NECK: Supple. JVP normal. No thyromegaly. Trachea midline. LUNGS: Decreased breath sounds at bases. CARDIOVASCULAR: S1, S2 regular. ABDOMEN: Soft, nontender, no guarding, no rigidity. Bowel sounds present. EXTREMITIES: No edema, no cyanosis, no calf tenderness. SKIN: Warm and dry. The patient has multiple lacerations, especially on the right knee and left elbow. She had some stitches. She has lacerations on the left hand. CENTRAL NERVOUS SYSTEM: Alert and oriented, moves extremities. No acute changes noted. LABORATORY FINDINGS: X-rays of the right shoulder showed no fracture. X-rays of the chest showed no acute changes. The patient has a previous left proximal humeral fracture, for which she had surgery. No acute changes on x-rays of the left hand and right knee. She does have osteoarthritis of the right knee. WBC count is 10.2, hemoglobin 13.4. Sodium 144, potassium 3.9, glucose 109, AST 16, ALT 22, alkaline phosphatase 137. Cardiac enzymes are normal. Troponin less than 0.017. Albumin 3.6. FINAL DIAGNOSES: 1. Atrial fibrillation with fast ventricular rate, converted to sinus rhythm with IV Cardizem drip. 2. Multiple lacerations requiring local care and stitches. The patient has lacerations of the left hand, left elbow, and right knee, status post fall. 3. Chronic obstructive pulmonary disease. 4. History of carcinoma of lung with radiation therapy and chemotherapy. 5. Coronary artery disease, status post coronary artery bypass graft. 6. Chronic pain. 7. Osteoarthritis. 8. Hypertension. 9. Hyperlipidemia. 10. Anemia of chronic disease. PLAN: Discussed with Dr. Byrd. The patient is now in sinus rhythm. The patient will be discharged home on metoprolol 25 mg p.o. b.i.d. and amiodarone 200 mg twice a day for 1 week and then once a day thereafter. She will also get an event recorder. Follow up with the psychologist counseling. Follow up with Dr. Nair in 5 days. Because of her pain, I will give her hydrocodone, but I have advised her to use sparingly because of her history of lung problems. I have given her hydrocodone 7.5/325 one q. 6 hours p.r.n. #28. For details, please refer to the orders. CONDITION AT THE TIME OF DISCHARGE: Stable. ACTIVITY: As tolerated. DIET: Cardiac diet. For other details, please refer to the discharge papers. CRYSTAL AGUILAR MD DR: RONNA/eda JOB#: [id number] / [id number] MARCO Martinez MD
--- NOTE | 2020-04-19 16:24 | EKG ---
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
== END 2020-04-17 13:53 | disposition home or self-care (01) | DRG 605 ==
LOC: ER 19:25 → 2 NORTH 22:24
PROVIDERS: ADMIT Internal Medicine; ATTEND Internal Medicine
PROC: 0HQKXZZ Repair Right Lower Leg Skin, External Approach (ICD-10-PCS; principal; 2020-04-16)
DX: S81.011A Laceration without foreign body, right knee, initial encounter (principal); I48.91 Unspecified atrial fibrillation; S80.01XA Contusion of right knee, initial encounter; D63.8 Anemia in other chronic diseases classified elsewhere; E78.5 Hyperlipidemia, unspecified; I10 Essential (primary) hypertension; I25.10 Atherosclerotic heart disease of native coronary artery without angina pectoris; M17.10 Unilateral primary osteoarthritis, unspecified knee; W01.0XXA Fall on same level from slipping, tripping and stumbling without subsequent striking against object, initial encounter; Y92.009 Unspecified place in unspecified non-institutional (private) residence as the place of occurrence of the external cause; Y92.524 Gas station as the place of occurrence of the external cause; Z85.118 Personal history of other malignant neoplasm of bronchus and lung; Z87.891 Personal history of nicotine dependence; Z92.21 Personal history of antineoplastic chemotherapy; Z92.3 Personal history of irradiation; Z95.1 Presence of aortocoronary bypass graft; Z96.612 Presence of left artificial shoulder joint; Z96.659 Presence of unspecified artificial knee joint; G89.29 Other chronic pain; Z88.2 Allergy status to sulfonamides; Z88.8 Allergy status to other drugs, medicaments and biological substances; J44.9 Chronic obstructive pulmonary disease, unspecified
CPT/HCPCS: 12002; 36415; 71045; 73030; 73130; 73562; 80053; 82553; 84484; 85025; 93005; 96365; 96367; J0282; J1160; J3010; J3490; J7060; 99285-25; G0378

== ENCOUNTER 2020-06-14 14:07 | Inpatient (IN) | payer OTHER, MEDICAID ==
[~2020-06-14] VITALS: Ht 165.1 cm; Wt 128.2 kg
[~2020-06-14 14:07] MED LIST changes: +AMIO200T6 PO; +ASPI-886 PO; +AZIT250T PO; -CLIN150C14 PO; +CLIN150C15 PO; +DOXY-181 PO; -DOXY100C14 PO; +HYDR-2765 PO; +MIRT-7 PO; -MIRT15TA3 PO; +OMEP20CA16 PO
--- NOTE | 2020-06-14 14:50 | RAD ---
EXAM: Chest, single view. HISTORY: Shortness of air. COMPARISON: 06/07/2020 FINDINGS: A frontal view of the chest obtained. There is stable diffuse interstitial infiltrate. Ther e is a stable prominent cardiac silhouette and prominent central pulmonary vessels. There is evidence of prior CABG. No pleural fusion or pneumothorax is seen. There is internal fixation of the proximal left humerus. IMPRESSION: Stable diffuse interstitial infiltrate. Electronically signed by: Alpa Larios MD (06/14/2020 2:48 PM) [id number]
[2020-06-14 14:55] LABS: BASO % 0 % (0-3); EOS % 1 % (0-3); HEMATOCRIT 33.6 % (36.0-47.0); HEMOGLOBIN 10.4 g/dL (12.0-15.5); LYMPH # 0.8 x10^3/uL (1.0-4.8); LYMPH % 8 % (24-48); MEAN CORPUSCULAR HEMOGLOBIN 26 pg (25-35); MEAN CORPUSCULAR HGB CONC 31 g/dL (31-37); MEAN CORPUSCULAR VOLUME 82 fL (79-100); MONO # 0.6 x10^3/uL (0.0-1.1); MONO % 6 % (0-9); NEUT # 8.6 x10^3/uL (1.8-7.7); NEUT % 85 % (31-73); PLATELET COUNT 327 x10^3/uL (140-400); RED BLOOD COUNT 4.07 x10^6/uL (3.50-5.40); RED CELL DISTRIBUTION WIDTH 16.4 % (11.5-14.5); WHITE BLOOD COUNT 10.1 x10^3/uL (4.0-11.0)
[2020-06-14 15:07] LABS: PROTHROMBIN TIME PATIENT 14.1 SEC (11.7-14.0)
[2020-06-14 15:22] LABS: % BANDS 4 % (0-9); % LYMPHS 8 % (24-48); % MONOS 4 % (0-10); % SEGS 84 % (35-66)
[2020-06-14 15:23] LABS: ANISOCYTOSIS SLIGHT; PLT ESTIMATE ADEQUATE (ADEQUATE)
[2020-06-14 15:27] LABS: CALCIUM 8.9 mg/dL (8.5-10.1); CREATININE 0.9 mg/dL (0.6-1.0); GFR 63.2
[2020-06-14 15:28] LABS: INFLUENZA A PATIENT NEGATIVE (NEGATIVE); INFLUENZA B PATIENT NEGATIVE (NEGATIVE)
[2020-06-14 15:33] LABS: ALBUMIN 3.4 g/dL (3.4-5.0); MAGNESIUM 2.3 mg/dL (1.8-2.4); TOTAL BILIRUBIN 0.5 mg/dL (0.2-1.0); TOTAL PROTEIN 6.8 g/dL (6.4-8.2)
[2020-06-14] MEDS ORDERED: cefTRIAXone IV Push 1 GM VIAL. IVP ONE (16:30)
[2020-06-14] MEDS ORDERED: DEXAMETHASONE SOD PHOS 20 MG/5 ML VIAL. IV ONE (16:30)
[2020-06-14] MEDS ORDERED: AZITHRMYCN 500MG IVPB FOR OMNI 250 ML IV ONE (16:30)
[2020-06-14] MEDS ORDERED: ONDANSETRON PF 4 MG/2 ML VIAL. IV PRN (18:45)
[2020-06-14] MEDS ORDERED: ACETAMINOPHEN 325 MG TABLET. PO PRN (18:45)
--- NOTE | 2020-06-14 18:49 | PHYS DOC ---
Past Medical History Past Medical History: A-Fib, Anemia, CAD, Cancer, CHF, COPD, Hypertension, PR, Pneumonia, Other Additional Past Medical Histor: CARDIAC ISSUES,RADIATION/CHEMO FOR RIGHT LUNG CA,CHRONIC BACK PAIN,RVR Past Surgical History: Coronary Bypass Surgery, Knee Replacement, Other Additional Past Surgical Histo: LEFT SHOULDER REPLACEMENT Smoking Status: Former Smoker Additional Information: QUIT SMOKING APPROXIMATELY 2 WEEKS AGO Alcohol Use: None Drug Use: None General Adult EDM: Chief Complaint: SHORTNESS OF BREATH HPI: HPI: Patient is a 64 year old female with history of A. fib, hypertension, CHF, COPD, PR, who presents to the ED today complaining of shortness of breath, cough, symptoms of 4 days. Patient was discharged from the hospital 4 days ago. Denies any fever. Has received a breathing treatment in route to the ED with slight relief of her symptoms. Denies any chest pain. Review of Systems: Review of Systems: Constitutional: Denies fever or chills. [] Eyes: Denies change in visual acuity. [] HENT: Denies nasal congestion or sore throat. [] Respiratory: Reports shortness of breath, cough Cardiovascular: Denies chest pain or edema. [] GI: Denies abdominal pain, nausea, vomiting, bloody stools or diarrhea. [] : Denies dysuria. [] Musculoskeletal: Denies back pain or joint pain. [] Integument: Denies rash. [] Neurologic: Denies headache, focal weakness or sensory changes. [] Psychiatric: Denies depression or anxiety. [] Heart Score: Risk Factors: Risk Factors: DM, Current or recent (<one month) smoker, HTN, HLP, family history of CAD, obesity. Risk Scores: Score 0 - 3: 2.5% MACE over next 6 weeks - Discharge Home Score 4 - 6: 20.3% MACE over next 6 weeks - Admit for Clinical Observation Score 7 - 10: 72.7% MACE over next 6 weeks - Early Invasive Strategies Current Medications: Current Medications Medications (Trade) Dose Ordered Sig/Claudette Start Time Stop Time Status Last Admin Dose Admin Azithromycin 250 ml @ 250 mls/hr 1X ONCE 06/14/20 16:30 06/14/20 17:29 DC 06/14/20 16:44 250 MLS/HR Ceftriaxone Sodium (Rocephin) 1 gm 1X ONCE 06/14/20 16:30 06/14/20 16:31 DC 06/14/20 16:44 1 GM Dexamethasone Sodium Phosphate (Decadron) 10 mg 1X ONCE 06/14/20 16:30 06/14/20 16:31 DC 06/14/20 16:43 10 MG Allergies: Allergies: Allergies Coded Allergies Type Severity Reaction Last Updated Verified tramadol Allergy Severe Seizures 09/04/16 Yes Sulfa (Sulfonamide Antibiotics) Allergy Intermediate Itching & GI upset 09/04/16 Yes lorazepam Allergy Intermediate Hives 09/04/16 Yes propoxyphene napsylate Allergy Intermediate Hives & GI upset 09/04/16 Yes morphine Adverse Reaction Severe 09/04/16 Yes ibuprofen Adverse Reaction Intermediate NAUSEA/VOMITING 09/04/16 Yes Physical Exam: PE: Constitutional: Well developed, well nourished, no acute distress, non-toxic appearance. [] HENT: Normocephalic, atraumatic, bilateral external ears normal, oropharynx moist, no oral exudates, nose normal. [] Eyes: PERRLA, EOMI, conjunctiva normal, no discharge. [] Neck: Normal range of motion, no tenderness, supple, no stridor. [] Cardiovascular:Heart rate regular rhythm, no murmur [] Lungs & Thorax: Bilateral breath sounds clear to auscultation [] Abdomen: Bowel sounds normal, soft, no tenderness, no masses, no pulsatile masses. [] Skin: Warm, dry, no erythema, no rash. [] Back: No tenderness, no CVA tenderness. [] Extremities: No tenderness, no cyanosis, no clubbing, ROM intact, no edema. [] Neurologic: Alert and oriented X 3, normal motor function, normal sensory function, no focal deficits noted. [] Psychologic: Affect normal, judgement normal, mood normal. [] Current Patient Data: Labs: Laboratory Tests Test 06/14/20 14:24 06/14/20 14:33 06/14/20 17:23 Influenza Type A Antigen Negative (NEGATIVE) Influenza Type B Antigen Negative (NEGATIVE) White Blood Count 10.1 x10^3/uL (4.0-11.0) Red Blood Count 4.07 x10^6/uL (3.50-5.40) Hemoglobin 10.4 g/dL (12.0-15.5) L Hematocrit 33.6 % (36.0-47.0) L Mean Corpuscular Volume 82 fL (79-100) Mean Corpuscular Hemoglobin 26 pg (25-35) Mean Corpuscular Hemoglobin Concent 31 g/dL (31-37) Red Cell Distribution Width 16.4 % (11.5-14.5) H Platelet Count 327 x10^3/uL (140-400) Neutrophils (%) (Auto) 85 % (31-73) H Lymphocytes (%) (Auto) 8 % (24-48) L Monocytes (%) (Auto) 6 % (0-9) Eosinophils (%) (Auto) 1 % (0-3) Basophils (%) (Auto) 0 % (0-3) Neutrophils # (Auto) 8.6 x10^3/uL (1.8-7.7) H Lymphocytes # (Auto) 0.8 x10^3/uL (1.0-4.8) L Monocytes # (Auto) 0.6 x10^3/uL (0.0-1.1) Eosinophils # (Auto) 0.0 x10^3/uL (0.0-0.7) Basophils # (Auto) 0.0 x10^3/uL (0.0-0.2) Segmented Neutrophils % 84 % (35-66) H Band Neutrophils % 4 % (0-9) Lymphocytes % 8 % (24-48) L Monocytes % 4 % (0-10) Platelet Estimate Adequate (ADEQUATE) Anisocytosis Slight Prothrombin Time 14.1 SEC (11.7-14.0) H Prothrombin Time INR 1.1 (0.8-1.1) Activated Partial Thromboplast Time 33 SEC (24-38) Sodium Level 144 mmol/L (136-145) Potassium Level 4.0 mmol/L (3.5-5.1) Chloride Level 104 mmol/L (98-107) Carbon Dioxide Level 30 mmol/L (21-32) Anion Gap 10 (6-14) Blood Urea Nitrogen 22 mg/dL (7-20) H Creatinine 0.9 mg/dL (0.6-1.0) Estimated GFR (Cockcroft-Gault) 63.2 BUN/Creatinine Ratio 24 (6-20) H Glucose Level 94 mg/dL (70-99) Lactic Acid Level 1.8 mmol/L (0.4-2.0) Calcium Level 8.9 mg/dL (8.5-10.1) Magnesium Level 2.3 mg/dL (1.8-2.4) Total Bilirubin 0.5 mg/dL (0.2-1.0) Aspartate Amino Transferase (AST) 50 U/L (15-37) H Alanine Aminotransferase (ALT) 86 U/L (14-59) H Alkaline Phosphatase 189 U/L (46-116) H Troponin I Quantitative < 0.017 ng/mL (0.000-0.055) < 0.017 ng/mL (0.000-0.055) VG-Xob-U-Type Natriuretic Peptide 5235 pg/mL (0-124) H Total Protein 6.8 g/dL (6.4-8.2) Albumin 3.4 g/dL (3.4-5.0) Albumin/Globulin Ratio 1.0 (1.0-1.7) Procalcitonin < 0.10 ng/mL (0.00-0.10) Thyroid Stimulating Hormone (TSH) 2.132 uIU/mL (0.358-3.74) Laboratory Tests 06/14/20 14:33 Laboratory Tests 06/14/20 14:33 Vital Signs: Vital Signs Date Time Temp Pulse Resp B/P (MAP) Pulse Ox O2 Delivery O2 Flow Rate FiO2 06/14/20 16:51 80 24 161/99 (119) Room Air 06/14/20 15:51 93 06/14/20 14:07 98.1 98.1 EKG: EKG: [] Radiology/Procedures: Radiology/Procedures: []PROCEDURE: PORTABLE CHEST 1V EXAM: Chest, single view. HISTORY: Shortness of air. COMPARISON: 06/07/2020 FINDINGS: A frontal view of the chest obtained. There is stable diffuse interstitial infiltrate. There is a stable prominent cardiac silhouette and prominent central pulmonary vessels. There is evidence of prior CABG. No pleural fusion or pneumothorax is seen. There is internal fixation of the proximal left humerus. IMPRESSION: Stable diffuse interstitial infiltrate. Electronically signed by: Alpa Baca MD (06/14/2020 2:48 PM) [id number] DICTATED and SIGNED BY: ALPA BACA MD DATE: 06/14/20 [id number] Course & Med Decision Making: Course & Med Decision Making Pertinent Labs and Imaging studies reviewed. (See chart for details) This is a 64-year-old female patient presenting to the ED today complaining of shortness of breath for 4 days. Labs are negative for any acute findings, chest x-ray noted for stable bilateral interstitial infiltrates. Started on Roce phin, azithromycin, and Decadron. Spoke with who accepted patient for admission Routine consult placed for pulmonary request from Joanie Solis Disclaimer: Irma Disclaimer: This electronic medical record was generated, in whole or in part, using a voice recognition dictation system. Departure Departure Impression: Primary Impression: Bilateral pulmonary infiltrates on CXR Additional Impressions: Person under investigation for COVID-19 Shortness of breath Disposition: ADMITTED INPT THIS HOSP Condition: STABLE Referrals: BARBY MARIE MD (PCP) MARILYN PURVIS APRN Jun 14, 2020 18:49
[2020-06-14 18:53] LABS: BILIRUBIN,URINE NEGATIVE (NEG); CLARITY,URINE CLEAR; COLOR,URINE YELLOW; NITRITE,URINE NEGATIVE (NEG); PROTEIN,URINE NEGATIVE (NEG-TRACE); UROBILINOGEN,URINE 0.2 mg/dL (0.2 mg/dL)
[2020-06-14 18:59] LABS: BARBITURATES NEG (NEG); BENZODIAZEPINES NEG (NEG); CANNABINOIDS NEG (NEG); COCAINE NEG (NEG); METHADONE NEG (NEG); OPIATES NEG (NEG); PHENCYCLIDINE NEG (NEG)
[2020-06-14 19:02] LABS: AMPHETAMINE/METHAMPHETAMINE NEG (NEG)
[2020-06-14 19:07] LABS: BACTERIA,URINE FEW /HPF (0-FEW); RBC,URINE 0 /HPF (0-2); WBC,URINE OCC /HPF (0-4)
[2020-06-14] MEDS: HYDROcodone/APAP 5/325MG 1 TAB TABLET PO PRN (23:00)
[2020-06-14] MEDS ORDERED: ALBUTEROL SULFATE 2.5 MG/3 ML NEBU. INH PRN (23:00)
[2020-06-14] MEDS: guaiFENesin/CODEINE 100mg/10mg 5 ML LIQUID PO PRN (23:00)
[2020-06-14 23:11] VITALS: BP 152/68
[2020-06-14] MEDS ORDERED: IPRATRPIUM/ALBUTEROL 0.5/2.5MG 3 ML NEBU. NEB ONE (23:30)
[2020-06-14] MEDS: QUEtiapine 25 MG TABLET. PO SCH (23:35)
[2020-06-14] MEDS: CYCLOBENZAPRINE 10 MG TABLET. PO SCH (23:35)
[2020-06-14] MEDS: ENOXAPARIN 40 MG/0.4 ML SYRINGE. SQ SCH (23:35)
[2020-06-14] MEDS: DEXAMETHASONE SOD PHOS 4 MG/ML VIAL IVP SCH (23:36)
[2020-06-15 03:41] VITALS: BP 124/63
[2020-06-15] MEDS: IPRATRPIUM/ALBUTEROL 0.5/2.5MG 3 ML NEBU. NEB SCH ×5 (06:33→18:27)
[2020-06-15 07:00] VITALS: BP 141/68
[2020-06-15] MEDS: DEXAMETHASONE SOD PHOS 4 MG/ML VIAL IVP SCH ×4 (07:04→23:33)
[2020-06-15] MEDS: FLUoxetine HCL 20 MG CAPSULE PO SCH (08:18)
[2020-06-15] MEDS: PANTOPRAZOLE 40 MG TABLET.DR. PO SCH (08:19)
[2020-06-15] MEDS: ASPIRIN ENTERIC COATED 81 MG TABLET.DR. PO SCH (08:19)
[2020-06-15] MEDS: CYCLOBENZAPRINE 10 MG TABLET. PO SCH ×3 (08:38→23:29)
[2020-06-15] MEDS: MULTIVITAMIN with MINERAL TABLET. PO SCH (08:38)
[2020-06-15] MEDS: EZETIMIBE 10 MG TABLET. PO SCH (08:38)
[2020-06-15] MEDS: METOPROLOL TART IMMED RELEASE 25 MG TABLET. PO SCH ×2 (08:39→23:29)
[2020-06-15] MEDS: AMIODARONE HCL 200 MG TABLET. PO SCH (08:39)
[2020-06-15] MEDS: ENOXAPARIN 40 MG/0.4 ML SYRINGE. SQ SCH ×2 (08:40→23:31)
--- NOTE | 2020-06-15 09:08 | PDOC ---
Provider Note Date of Service: DATE: 06/15/20 TIME: 09:08 Provider Note Pt seen .H&P dictated.#[id number]. Dx .COPD exacerbration Justifications for Admission Other Justification BARBY MARIE MD Jun 15, 2020 09:08
[2020-06-15] MEDS ORDERED: FUROSEMIDE 40 MG/4 ML VIAL. IVP ONE (10:30)
--- NOTE | 2020-06-15 10:42 | CONS ---
DATE OF CONSULTATION: PULMONARY CONSULTATION ATTENDING PHYSICIAN: Marco Nair MD REASON FOR CONSULTATION: Dyspnea, respiratory failure. HISTORY OF PRESENT ILLNESS: The patient is a 64-year-old obese patient with a BMI of 46. The patient has smoking history for 40 years and still smokes cigarettes. She has history of CHF as well and history of atrial fibrillation. She was brought into the hospital with a 2-day history of shortness of breath. She also has a cough, which has been nonproductive. No fever, no chills, no chest pain. She was recently discharged from the hospital 4 days ago. She is not on home oxygen, but currently requiring nasal cannula at 3 liters. The patient's chest x-ray was reviewed and was consistent with interstitial infiltrates, suggestive of CHF. I have been asked to see her for further evaluation. She appears to be weak. PAST MEDICAL HISTORY: Significant for AFib, history of anemia, CAD, history of CHF, COPD, hypertension, [place], pneumonia, history of radiation and chemo for right lung cancer, history of chronic back pain, history of arthritis. PAST SURGICAL HISTORY: Coronary artery bypass surgery, knee surgery, left shoulder replacement. SOCIAL HISTORY: Smoker for 40 years, still smokes cigarettes. REVIEW OF SYSTEMS: Ten-point system obtained. Pertinent positives discussed in my history of present illness, otherwise noncontributory. All systems that were negative were reviewed as well. ALLERGIES: All reviewed as listed in the MRAD. MEDICATIONS: Reviewed as listed in the MRAD including antibiotic, Rocephin and Zithromax, amiodarone, Lovenox and IV steroids. PHYSICAL EXAMINATION: VITAL SIGNS: Reviewed. She is afebrile, blood pressure stable, pulse ox 94% on 3 liters. NECK: Supple. LUNGS: With diminished breath sounds and some wheezing. CARDIOVASCULAR: With a regular rate. ABDOMEN: Soft, obese. EXTREMITIES: With trace pitting edema. LABORATORY DATA: Reviewed. Influenza screen is negative. Toxicology screen negative. Renal function with a BUN of 22, creatinine 0.9. AST and ALT elevated. INR 1.1. White cell count 10.1. IMPRESSION: 1. Acute hypoxic respiratory failure secondary to multifactorial etiologies including combination of acute exacerbation of chronic obstructive pulmonary disease and suspected diastolic heart failure. 2. The patient with 40 years of tobacco use and still smoking cigarettes consistent with COPD. 3. History of atrial fibrillation. 4. History of diastolic congestive heart failure. RECOMMENDATIONS: 1. Continue present oxygen to keep saturation 92 and above. 2. Empiric antibiotic for now for acute bronchitis. 3. Trial of diuresis to see an improvement in oxygenation. 4. Continue DuoNebs. 5. Continue IV dexamethasone. 6. Lovenox for DVT prophylaxis. 7. We will consider 6-minute walk test in the next 24 hours as she clinically improves. 8. Discussed with RN. MINDY VICENTE MD DR: CRISTOBAL/eda JOB#: [id number] / [id number]
[2020-06-15 11:00] VITALS: BP 129/64
--- NOTE | 2020-06-15 11:50 | EKG ---
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
--- NOTE | 2020-06-15 11:52 | NUR ---
SW following for discharge planning. Spoke with RN and reviewed chart. SW familiar with pt from last admission. Pt discharged home, self-care on room air on 06/09 with a negative COVID result from 06/08. Pt currently on , COVID pending. SW requested 6 min walk to check for possible home 02 needs. Possible discharge home today, self-care. SW following. Addendum: 06/15/20 at 1226 by MARII ACE Spoke with RN. Pt will not discharge home today per pulmonary. DB will continue following.
[2020-06-15] MEDS ORDERED: ALBUTEROL SULFATE 2.5 MG/3 ML NEBU. INH PRN (12:13)
[2020-06-15 15:00] VITALS: BP 141/68
[2020-06-15] MEDS: cefTRIAXone IV Push 1 GM VIAL. IVP SCH (15:49)
--- NOTE | 2020-06-15 17:11 | NUR ---
Wound/Ostomy Care Wound Type/Assessment: Pt seen per wound care consult. See wound assessment. Pt is well known to us from the wound clinic and previous admissions. Pt has skin tear to left forearm and an abrasion to the right knee which is now scabbed and has healed significantly since last admission. Wounds cleansed and assessed. Treatment Recommendations/Plan: Recommendations for xeroform gauze to left forearm and skin prep to the right knee and leave open to air. Pt has had multiple falls recently with multiple self inflicted injuries. Education provided: Pt educated on dressing changes and wound care follow up if needed. Offloading surface/device: N/A Recommended Referrals/Tests: N/A Discharge Recommendations for dressings: Dressing applied. Dressing change instructions left in room. No other wounds noted, just multiple bruises at different stages of healing. Pt may follow up in wound clinic if needed after discharge for the left forearm. Bed lowered and call light in reach. Wound care will follow up for reassessment on 06/22/20.
[2020-06-15] MEDS: AZITHROMYCIN 250 MG in IV NORMAL SALINE 250ML 250 ML IV SCH (17:42)
--- NOTE | 2020-06-15 19:06 | HP ---
ADMIT DATE: 06/14/2020 MEDICAL HISTORY AND PHYSICAL REASON FOR ADMISSION TO THE HOSPITAL: Shortness of breath, COPD with exacerbation. HISTORY OF PRESENT ILLNESS: The patient is a 64-year-old female whose third admission in last 1 month for similar problems. The patient has chronic COPD, continues to smoke and she was admitted with shortness of breath and wheezing, was given Solu-Medrol, IV antibiotics and Pulmonary was consulted. The patient had a previous COVID test, which was negative. PAST MEDICAL HISTORY: She has a history of lung cancer, had a radiation treatment; history of coronary artery disease, bypass surgery; hypertension; hyperlipidemia; arthritis. PAST SURGICAL HISTORY: Bypass surgery, knee surgery, shoulder replacement. SOCIAL HISTORY: Smoked for 40 years, still smokes. Denies alcohol. Denies any street drugs. ALLERGIES: TO SULFA, IBUPROFEN, LORAZEPAM, MORPHINE, DARVOCET, TRAMADOL. MEDICATIONS AT HOME: The patient is on albuterol inhaler, amiodarone 200 mg daily, amitriptyline 25 mg daily, aspirin 81 mg daily, atorvastatin 40 mg daily, Soma 350 mg 4 times a day, Colace 100 mg daily, doxepin 50 mg daily, Zetia 10 mg daily, fluoxetine 40 mg daily, metoprolol 25 mg twice a day, multivitamin daily, omeprazole 20 mg daily, Seroquel 50 mg at bedtime. She is on and off on steroids, not at maintenance dose. REVIEW OF SYMPTOMS: Complains of cough, wheezing. Denies any chest pain and rest of the 14-system was reviewed. PHYSICAL EXAMINATION: GENERAL: The patient is not in any distress. VITAL SIGNS: Temperature 97, pulse 74, respirations 16, blood pressure 124/63, 94 on 3 liters. HEENT: Head is atraumatic. Pupils equal. Oral cavity: No congestion. NECK: Supple. Thyroid not enlarged. JVD not elevated. CHEST: Scar of heart surgery. CARDIOVASCULAR: S1, S2. LUNGS: Wheezing, bilateral crackles at the base. ABDOMEN: Soft, bowel sounds are present, no mass palpable. EXTERNAL GENITALIA: No Jarvis. RECTAL: Deferred. EXTREMITIES: Very trace edema. NEUROLOGIC: Moving all extremities. No focal deficits noted. LABORATORY DATA: Show white count 10, hemoglobin 10, platelets 377. INR 1.1. Electrolytes are sodium 144, potassium 4.0, chloride 104, bicarb 30, BUN 22, creatinine 0.9, glucose 94. LFTs: AST 50, ALT 86. BNP 5235. Troponin negative. Urine drug screen was negative. Influenza is negative. Chest x-ray shows diffuse interstitial infiltrates. The patient had a CT chest 6 weeks ago. Echocardiogram also 6 weeks ago shows a good left ventricular function 60%, PA pressure is high at 50. FINAL IMPRESSION: 1. Chronic obstructive pulmonary disease with acute exacerbation. 2. Chronic obstructive pulmonary disease. 3. Tobacco addiction, smoking history. 4. Coronary artery disease, history of bypass surgery. 5. History of lung cancer, radiation treatment. 6. Hypertension. PLAN: At this time, the patient may need home oxygen. The patient has a nebulizer at home. Continue prednisone, IV Solu-Medrol, IV Zithromax and Rocephin and Pulmonary consult. DVT prophylaxis and COVID test was ordered and see how she does and smoking counseling was done. BARBY MARIE MD DR: AUBREY/eda JOB#: [id number] / [id number]
[2020-06-15 19:55] VITALS: BP 148/67
[2020-06-15] MEDS ORDERED: DOXEPIN HCL 25 MG CAPSULE. PO SCH (21:00)
[2020-06-15] MEDS ORDERED: ATORVASTATIN CALCIUM 40 MG TABLET. PO SCH (21:00)
[2020-06-15] MEDS ORDERED: AMITRIPTYLINE HCL 25 MG TABLET. PO SCH (21:00)
[2020-06-15] MEDS: LACTOBACILLUS RHAMNOSUS GG 1 CAPSULE. PO SCH (23:29)
[2020-06-15] MEDS: QUEtiapine 25 MG TABLET. PO SCH (23:31)
[2020-06-15] MEDS: HYDROcodone/APAP 5/325MG 1 TAB TABLET PO PRN (23:43)
[2020-06-15 23:52] VITALS: BP 144/66
[2020-06-16] MEDS: guaiFENesin/CODEINE 100mg/10mg 5 ML LIQUID PO PRN ×2 (02:56→15:03)
[2020-06-16 03:41] VITALS: BP 136/57
[2020-06-16] MEDS: DEXAMETHASONE SOD PHOS 4 MG/ML VIAL IVP SCH ×3 (06:38→18:00)
[2020-06-16 07:00] VITALS: BP 140/63
[2020-06-16] MEDS: IPRATRPIUM/ALBUTEROL 0.5/2.5MG 3 ML NEBU. NEB SCH ×4 (08:00→20:00)
[2020-06-16] MEDS: ENOXAPARIN 40 MG/0.4 ML SYRINGE. SQ SCH (08:29)
[2020-06-16] MEDS: METOPROLOL TART IMMED RELEASE 25 MG TABLET. PO SCH (08:29)
[2020-06-16] MEDS: LACTOBACILLUS RHAMNOSUS GG 1 CAPSULE. PO SCH (08:29)
[2020-06-16] MEDS: EZETIMIBE 10 MG TABLET. PO SCH (08:30)
[2020-06-16] MEDS: CYCLOBENZAPRINE 10 MG TABLET. PO SCH ×2 (08:30→14:53)
[2020-06-16] MEDS: HYDROcodone/APAP 5/325MG 1 TAB TABLET PO PRN (08:30)
[2020-06-16] MEDS: ASPIRIN ENTERIC COATED 81 MG TABLET.DR. PO SCH (08:30)
[2020-06-16] MEDS: FLUoxetine HCL 20 MG CAPSULE PO SCH (08:30)
[2020-06-16] MEDS: MULTIVITAMIN with MINERAL TABLET. PO SCH (08:31)
[2020-06-16] MEDS: AMIODARONE HCL 200 MG TABLET. PO SCH (08:31)
[2020-06-16] MEDS: PANTOPRAZOLE 40 MG TABLET.DR. PO SCH (08:31)
[2020-06-16] MEDS ORDERED: DOCUSATE SODIUM 100 MG CAPSULE. PO SCH (09:00)
--- NOTE | 2020-06-16 09:07 | PDOC ---
PULMONARY PROGRESS NOTES DATE: 06/16/20 TIME: 09:04 Subjective pt. is resting on room air this am no increased SOA or cough no overnight events Vitals Vital Signs Date Time Temp Pulse Resp B/P (MAP) Pulse Ox O2 Delivery O2 Flow Rate FiO2 06/16/20 08:31 70 136/57 06/16/20 08:30 Nasal Cannula 2.0 06/16/20 03:41 97.5 18 97 97.5 ROS: No Nausea, No Chest Pain, No Abdominal Pain, No Increase Cough General: Alert, No acute distress HEENT: Other Lungs: Clear Cardiovascular: S1, S2 Abdomen: Soft, Non-tender Extremities: Other Skin: Warm, Dry Labs Laboratory Tests Test 06/14/20 14:24 06/14/20 14:33 06/14/20 17:23 06/14/20 18:40 Influenza Type A Antigen Negative (NEGATIVE) Influenza Type B Antigen Negative (NEGATIVE) White Blood Count 10.1 x10^3/uL (4.0-11.0) Red Blood Count 4.07 x10^6/uL (3.50-5.40) Hemoglobin 10.4 g/dL (12.0-15.5) Hematocrit 33.6 % (36.0-47.0) Mean Corpuscular Volume 82 fL (79-100) Mean Corpuscular Hemoglobin 26 pg (25-35) Mean Corpuscular Hemoglobin Concent 31 g/dL (31-37) Red Cell Distribution Width 16.4 % (11.5-14.5) Platelet Count 327 x10^3/uL (140-400) Neutrophils (%) (Auto) 85 % (31-73) Lymphocytes (%) (Auto) 8 % (24-48) Monocytes (%) (Auto) 6 % (0-9) Eosinophils (%) (Auto) 1 % (0-3) Basophils (%) (Auto) 0 % (0-3) Neutrophils # (Auto) 8.6 x10^3/uL (1.8-7.7) Lymphocytes # (Auto) 0.8 x10^3/uL (1.0-4.8) Monocytes # (Auto) 0.6 x10^3/uL (0.0-1.1) Eosinophils # (Auto) 0.0 x10^3/uL (0.0-0.7) Basophils # (Auto) 0.0 x10^3/uL (0.0-0.2) Segmented Neutrophils % 84 % (35-66) Band Neutrophils % 4 % (0-9) Lymphocytes % 8 % (24-48) Monocytes % 4 % (0-10) Platelet Estimate Adequate (ADEQUATE) Anisocytosis Slight Prothrombin Time 14.1 SEC (11.7-14.0) Prothromb Time International Ratio 1.1 (0.8-1.1) Activated Partial Thromboplast Time 33 SEC (24-38) Sodium Level 144 mmol/L (136-145) Potassium Level 4.0 mmol/L (3.5-5.1) Chloride Level 104 mmol/L (98-107) Carbon Dioxide Level 30 mmol/L (21-32) Anion Gap 10 (6-14) Blood Urea Nitrogen 22 mg/dL (7-20) Creatinine 0.9 mg/dL (0.6-1.0) Estimated GFR (Cockcroft-Gault) 63.2 BUN/Creatinine Ratio 24 (6-20) Glucose Level 94 mg/dL (70-99) Lactic Acid Level 1.8 mmol/L (0.4-2.0) Calcium Level 8.9 mg/dL (8.5-10.1) Magnesium Level 2.3 mg/dL (1.8-2.4) Total Bilirubin 0.5 mg/dL (0.2-1.0) Aspartate Amino Transf (AST/SGOT) 50 U/L (15-37) Alanine Aminotransferase (ALT/SGPT) 86 U/L (14-59) Alkaline Phosphatase 189 U/L (46-116) Troponin I Quantitative < 0.017 ng/mL (0.000-0.055) < 0.017 ng/mL (0.000-0.055) PD-Bdn-O-Type Natriuretic Peptide 5235 pg/mL (0-124) Total Protein 6.8 g/dL (6.4-8.2) Albumin 3.4 g/dL (3.4-5.0) Albumin/Globulin Ratio 1.0 (1.0-1.7) Procalcitonin < 0.10 ng/mL (0.00-0.10) Thyroid Stimulating Hormone (TSH) 2.132 uIU/mL (0.358-3.74) Urine Collection Type Unknown Urine Color Yellow Urine Clarity Clear Urine pH 8.0 (<5.0-8.0) Urine Specific [place] 1.020 (1.000-1.030) Urine Protein Negative mg/dL (NEG-TRACE) Urine Glucose (UA) Negative mg/dL (NEG) Urine Ketones (Stick) Negative mg/dL (NEG) Urine Blood Negative (NEG) Urine Nitrite Negative (NEG) Urine Bilirubin Negative (NEG) Urine Urobilinogen Dipstick 0.2 mg/dL (0.2 mg/dL) Urine Leukocyte Esterase Trace (NEG) Urine RBC 0 /HPF (0-2) Urine WBC Occ /HPF (0-4) Urine Squamous Epithelial Cells Many /LPF Urine Bacteria Few /HPF (0-FEW) Urine Mucus Slight /LPF Urine Opiates Screen Neg (NEG) Urine Methadone Screen Neg (NEG) Urine Barbiturates Neg (NEG) Urine Phencyclidine Screen Neg (NEG) Urine Amphetamine/Methamphetamine Neg (NEG) Urine Benzodiazepines Screen Neg (NEG) Urine Cocaine Screen Neg (NEG) Urine Cannabinoids Screen Neg (NEG) Urine Ethyl Alcohol Neg (NEG) Test 06/14/20 21:48 Troponin I Quantitative < 0.017 ng/mL (0.000-0.055) Medications Active Scripts Medications Dose Route/Sig Max Daily Dose Days Date Category Dose Instructions Doxycycline Hyclate 100 Mg Capsule 1 Cap PO BID 06/09/20 Rx Prednisone 50 Mg Tablet 1 Tab PO DAILY 06/09/20 Rx Amiodarone Hcl 200 Mg Tablet 1 Tab PO DAILY 06/07/20 Reported Aspirin Ec (Aspirin) 81 Mg Tablet.dr 81 Mg PO DAILYWBKFT 30 04/29/20 Rx Metoprolol Tartrate 25 Mg Tablet 25 Mg PO BID 04/17/20 Rx Omeprazole 20 Mg Capsule.dr 1 Cap PO BID 04/17/20 Reported Proair Hfa (Albuterol Sulfate) 8.5 Gm Hfa.aer.ad 1 Puff INH PRN Q6HRS PRN 07/21/18 Reported Quetiapine Fumarate 50 Mg Tablet 50 Mg PO HS 07/21/18 Reported Doxepin Hcl 50 Mg Capsule 50 Mg PO HS 07/21/18 Reported Docusate Sodium 100 Mg Capsule 1 Cap PO QODAY 07/21/18 Reported Amitriptyline Hcl 25 Mg Tablet 1 Tab PO QHS 07/21/18 Reported Multi-Day Vitamins (Multivitamin) 1 Each Tablet 1 Tab PO DAILY 10/27/16 Reported Zetia (Ezetimibe) 10 Mg Tablet 10 Mg PO DAILY 07/22/13 Reported LAST DOSE GIVEN: This morning NEXT DOSE DUE: Tomorrow morning TIME:9:00 p.m. Fluoxetine Hcl 40 Mg Capsule 40 Mg PO DAILY08 06/16/13 Reported LAST DOSE GIVEN: This morning NEXT DOSE DUE: Tomorrow morning TIME:9:00 a.m. Carisoprodol 350 Mg Tablet 350 Mg PO QID 06/16/13 Reported LAST DOSE GIVEN: this morning NEXT DOSE DUE: this afternoon TIME:9:00 p.m. Atorvastatin Calcium 40 Mg Tablet 40 Mg PO HS 06/16/13 Reported LAST DOSE GIVEN: last night NEXT DOSE DUE: take again tonight TIME:9:00 p.m. Comments CXR IMPRESSION: Stable diffuse interstitial infiltrate. Impression . IMPRESSION: 1. Acute hypoxic respiratory failure secondary to multifactorial etiologies including combination of acute exacerbation of chronic obstructive pulmonary disease and suspected diastolic heart failure. 2. The patient with 40 years of tobacco use and still smoking cigarettes consistent with COPD. 3. History of atrial fibrillation. 4. History of diastolic congestive heart failure. Plan . RECOMMENDATIONS: Continue present oxygen to keep saturation 92 and above, currently on room air 6 min walk prior to discharge Continue Empiric antibiotic for now for acute bronchitis. Continue DuoNebs. Await Covid results Continue Steroids change to po with slow taper DVT/GI PPX D/W Rn and Dr. Nair ok to Discharge home today after 6 min walk from our standpoint MINDY VICENTE MD Jun 16, 2020 09:07
--- NOTE | 2020-06-16 09:11 | PDOC ---
PROGRESS NOTES Date of Service: DATE: 06/16/20 TIME: 09:11 Subjective Subjective feels ok Objective Objective Vital Signs Date Time Temp Pulse Resp B/P (MAP) Pulse Ox O2 Delivery O2 Flow Rate FiO2 06/16/20 08:31 70 136/57 06/16/20 08:30 Nasal Cannula 2.0 06/16/20 03:41 97.5 18 97 97.5 Intake and Output 06/16/20 07:00 Intake Total 2170 ml Balance 2170 ml Intake Oral 1920 ml IV Total 250 ml # Voids 5 Physical Exam Abdomen: Soft Heart: Regular rate, Normal S1, Normal S2 Extremities: No clubbing General: Alert HEENT: Atraumatic MUSCULOSKELETAL: No deformity, Osteoarthritic changes both hands Neck: No JVD Neuro: Normal speech Psych/Mental Status: Mental status NL Skin: No breakdown Diagnosis Problem List Problems Medical Problems: (1) Bilateral pulmonary infiltrates on CXR Status: Acute (2) Shortness of breath Status: Acute Assessment Assessment Problems Medical Problems: (1) Bilateral pulmonary infiltrates on CXR Status: Acute (2) Shortness of breath Status: Acute FINAL IMPRESSION: 1. Chronic obstructive pulmonary disease with acute exacerbation. 2. Chronic obstructive pulmonary disease. 3. Tobacco addiction, smoking history. 4. Coronary artery disease, history of bypass surgery. 5. History of lung cancer, radiation treatment. 6. Hypertension. PLAN: 6 mts walk bill eoxygen d/c home later today vedio swallow study chantix for smoking At this time, the patient may need home oxygen. The patient has a nebulizer at home. Continue prednisone, IV Solu-Medrol, IV Zithromax and Rocephin and Pulmonary consult. DVT prophylaxis and COVID test was ordered and see how she does and smoking counseling was done. Plan Plan of Care Problems Medical Problems: (1) Bilateral pulmonary infiltrates on CXR Status: Acute (2) Shortness of breath Status: Acute Comment Review of Relevant I have reviewed the following items norberto (where applicable) has been applied. Labs Microbiology 06/14/20 Blood Culture - Preliminary, Resulted NO GROWTH AFTER 1 DAY Medications Current Medications Albuterol Sulfate (Ventolin Neb Soln) 2.5 mg PRN Q6HRS PRN INH SHORTNESS OF BREATH; Start 06/15/20 at 12:13 Amitriptyline HCl (Elavil) 25 mg QHS PO Last administered on 06/15/20at 23:29; Start 06/15/20 at 21:00 Atorvastatin Calcium (Lipitor) 40 mg HS PO Last administered on 06/15/20at 23:29; Start 06/15/20 at 21:00 Azithromycin 250 mg/Sodium Chloride 250 ml @ 250 mls/hr Q24H IV Last ad ministered on 06/15/20at 17:42; Start 06/15/20 at 16:00; Stop 06/18/20 at 16:59 Ceftriaxone Sodium (Rocephin) 1 gm Q24H IVP Last administered on 06/15/20at 15:49; Start 06/15/20 at 14:00 Docusate Sodium (Colace) 100 mg QODAY PO Last administered on 06/16/20at 08:31; Start 06/16/20 at 09:00 Doxepin HCl (SINEquan) 50 mg QHS PO Last administered on 06/15/20at 23:31; Start 06/15/20 at 21:00 Furosemide (Lasix) 40 mg 1X ONCE IVP Last administered on 06/15/20at 10:52; Start 06/15/20 at 10:30; Stop 06/15/20 at 10:33; Status DC Lactobacillus Rhamnosus (Culturelle) 1 cap BID PO Last administered on 06/16/20at 08:29; Start 06/15/20 at 21:00 Vitals/I & O Vital Sign - Last 24 Hours 06/15/20 06/15/20 06/15/20 06/15/20 11:00 15:00 19:55 20:00 Temp 97.8 97.8 98.1 97.8 97.8 98.1 Pulse 78 92 80 Resp 18 18 24 B/P (MAP) 129/64 (85) 141/68 (92) 148/67 (94) Pulse Ox 98 97 97 O2 Delivery Nasal Cannula Nasal Cannula Nasal Cannula Nasal Cannula O2 Flow Rate 3.0 3.0 3.0 3.0 06/15/20 06/15/20 06/15/20 06/16/20 23:29 23:43 23:52 00:43 Temp 97.9 97.9 Pulse 82 Resp 20 B/P (MAP) 148/67 144/66 (92) Pulse Ox 99 O2 Delivery Nasal Cannula Nasal Cannula Nasal Cannula O2 Flow Rate 3.0 3.0 2.0 06/16/20 06/16/20 06/16/20 06/16/20 03:41 08:29 08:30 08:31 Temp 97.5 97.5 Pulse 70 70 70 Resp 18 B/P (MAP) 136/57 (83) 136/57 136/57 Pulse Ox 97 O2 Delivery Nasal Cannula Nasal Cannula O2 Flow Rate 3.0 2.0 Intake and Output 06/15/20 06/15/20 06/16/20 15:00 23:00 07:00 Intake Total 590 ml 890 ml 690 ml Balance 590 ml 890 ml 690 ml Justifications for Admission Other Justification BARBY MARIE MD Jun 16, 2020 09:11
[2020-06-16] MEDS ORDERED: VARE1TAB21 PO (09:15)
[2020-06-16] MEDS ORDERED: DOXY100C2 PO (09:15)
--- NOTE | 2020-06-16 09:16 | SNU/HH DC ---
DISCHARGE WITH HOME HEALTH DISCHARGE INFORMATION: Discharge Date: Jun 16, 2020 Final Diagnosis: Problems Medical Problems: (1) Bilateral pulmonary infiltrates on CXR Status: Acute (2) Shortness of breath Status: Acute Condition on Discharge: Stable CODE STATUS: Code Status: Full HOME HEALTH: Face to Face: I certify this patient is under my care and that I, or a nurse practitioner or physician's credit assistant working with me, had a face to face encounter that meets the physician face to face encounter requirements with this patient on []. Medical Complications: COPD RN For Eval/Treatment: Yes Physical Therapy For: Evalulation/Treatment THREAD LASTER For: Community Resources Pt Meets Homebound Status: Poor coordination w/ amb. POST DISCHARGE ORDERS: Activity Instructions for Disc: Activity as tolerated Weight Bearing Status after Di: As tolerated Bathing Instructions: Shower-keep dressing dry DIET AFTER DISCHARGE: Cardiac Wound/Incision Care: Keep wound/cast CDI, Change dressing CHECKS AFTER DISCHARGE: Checks after discharge: Check blood press - daily, Weigh Yourself Daily TREATMENT/EQUIPMENT ORDERS: Adaptive Equipment Issued: None, Platform walker Discharge Respiratory Equipmen: Oxygen CERTIFICATION STATEMENT: Certification Statement: Certification Statement: Based on the above finding, I certify that this patient is confined to the home and needs intermittent custodial care, physical therapy and/or speech therapy, or continues to need occupational therapy.~ This patient is under my care, and I have initiated the establishment of the plan of care.~ This patient will be followed by myself or a community physician who will periodically review the plan of care. Home Meds Active Scripts Varenicline Tartrate (CHANTIX) 1 Mg Tablet, 1 MG PO BID for smoking for 30 Days, #60 TAB Prov:BARBY MARIE MD 06/16/20 Doxycycline Hyclate (DOXYCYCLINE HYCLATE) 100 Mg Capsule, 1 CAP PO BID for copd, #14 CAP Prov:BARBY MARIE MD 06/16/20 Doxycycline Hyclate (DOXYCYCLINE HYCLATE) 100 Mg Capsule, 1 CAP PO BID for bronchitis, #14 CAP Prov:BARBY MARIE MD 06/09/20 Prednisone (PREDNISONE) 50 Mg Tablet, 1 TAB PO DAILY for copd, #5 TAB Prov:BARBY MARIE MD 06/09/20 Aspirin (ASPIRIN EC) 81 Mg Tablet., 81 MG PO DAILYWBKFT for cad for 30 Days, #30 TAB.SR Prov:BARBY MARIE MD 04/29/20 Metoprolol Tartrate (METOPROLOL TARTRATE) 25 Mg Tablet, 25 MG PO BID for FOR HYPERTENSION, #60 TAB 0 Refills Prov:CRYSTAL AGUILAR MD 04/17/20 Reported Medications Amiodarone Hcl (AMIODARONE HCL) 200 Mg Tablet, 1 TAB PO DAILY for AFIB, #90 TAB 1 Refill 06/07/20 Omeprazole (OMEPRAZOLE) 20 Mg Capsule.dr, 1 CAP PO BID for reflux, #30 CAP 5 Refills 04/17/20 Albuterol Sulfate (Proair Hfa) 8.5 Gm Hfa.aer.ad, 1 PUFF INH PRN Q6HRS PRN for SHORTNESS OF BREATH, INHALER 07/21/18 Quetiapine Fumarate (QUETIAPINE FUMARATE) 50 Mg Tablet, 50 MG PO HS for sleep 07/21/18 Doxepin Hcl (DOXEPIN HCL) 50 Mg Capsule, 50 MG PO HS for for sleep 07/21/18 Docusate Sodium (DOCUSATE SODIUM) 100 Mg Capsule, 1 CAP PO QODAY for constipation , #14 CAP 07/21/18 Amitriptyline Hcl (AMITRIPTYLINE HCL) 25 Mg Tablet, 1 TAB PO QHS for isomina, #30 TAB 5 Refills 07/21/18 Multivitamin (MULTI-DAY VITAMINS) 1 Each Tablet, 1 TAB PO DAILY, #30 TAB 10/27/16 Ezetimibe (ZETIA) 10 Mg Tablet, 10 MG PO DAILY for high cholesterol LAST DOSE GIVEN: This morning NEXT DOSE DUE: Tomorrow morning TIME:9:00 p.m. 07/22/13 Fluoxetine Hcl (FLUOXETINE HCL) 40 Mg Capsule, 40 MG PO DAILY08 for antidepressant LAST DOSE GIVEN: This morning NEXT DOSE DUE: Tomorrow morning TIME:9:00 a.m. 06/16/13 Carisoprodol (CARISOPRODOL) 350 Mg Tablet, 350 MG PO QID for MUSCLE SPASMS LAST DOSE GIVEN: this morning NEXT DOSE DUE: this afternoon TIME:9:00 p.m. 06/16/13 Atorvastatin Calcium (ATORVASTATIN CALCIUM) 40 Mg Tablet, 40 MG PO HS for high cholesterol LAST DOSE GIVEN: last night NEXT DOSE DUE: take again tonight TIME:9:00 p.m. 06/16/13 BARBY MARIE MD Jun 16, 2020 09:16
[2020-06-16 11:00] VITALS: BP 140/72
--- NOTE | 2020-06-16 11:37 | NUR ---
DB following for discharge planning. DB spoke with RN and reviewed chart. Discharge orders written for HH. DB spoke with pt. Pt refusing HH. Pt stated she has HCBS through [facility]. SW explained the differences between HH and HCBS attendant care through Medicaid. Pt again declined the need for HH. Pt to discharge home today, self-care. SW awaiting results of 6 min walk to determine home 02 needs. Pt stated no preference in 02 provider. DB did complete patient choice of vendor form and sent initial referral to Renetta with [employer]. DB following. Addendum: 06/16/20 at 1701 by MARII ACE 6 min walk results indicate no need for home 02. Possible out-patient pulmonary follow up for this patient. No further SW needs at this time. Pt to discharge home today, 06/16 self-care.
[2020-06-16] MEDS: cefTRIAXone IV Push 1 GM VIAL. IVP SCH (14:53)
[2020-06-16 15:00] VITALS: BP 134/61
[2020-06-16] MEDS: AZITHROMYCIN 250 MG in IV NORMAL SALINE 250ML 250 ML IV SCH (16:32)
[2020-06-16 16:35] VITALS: BP 134/61
--- NOTE | 2020-06-20 10:38 | PDOC ---
Provider Note Date of Service: DATE: 06/20/20 TIME: 10:38 Provider Note Discharge summary dictated.#[id number]. Justifications for Admission Other Justification BARBY MARIE MD Jun 20, 2020 10:38
--- NOTE | 2020-06-20 10:47 | DS ---
DATE OF DISCHARGE: 06/16/2020 REASON FOR ADMISSION TO THE HOSPITAL: COPD with acute exacerbation. CONSULTATION: Dr. Lyons. PROCEDURES DONE: None. COMPLICATIONS NOTED: None. HOSPITAL COURSE: This is the third admission for COPD with exacerbation. The patient has chronic COPD, continues to smoke. The patient was seen by Pulmonology. Chest x-ray shows chronic scarring. The patient had a history of COPD, lung cancer, had radiation treatment in the previous admissions in last one month. She had a CT of the chest, seen by Radiation Oncology, does not think there is any recurrence of cancer at this point. The patient was requiring oxygen. COVID test was negative and the patient was seen by Pulmonology, was given Solu-Medrol, IV antibiotics. The patient was feeling better. She was discharged home with oxygen with home health and smoking counseling was done. The patient has a history of coronary artery disease, previous bypass surgery and also seen by Cardiology recently. History of lung cancer, had radiation treatment. FINAL DIAGNOSES: 1. Chronic obstructive pulmonary disease with acute exacerbation. 2. Hypoxia, requiring oxygen. 3. Smoking addiction, making it worse. Counseling was done. 4. Coronary artery disease, history of bypass surgery. 5. Paroxysmal atrial fibrillation, not a good candidate for anticoagulation secondary to multiple falls. 6.CAD s/p CABG. 7.H/o Lung cancer s/p radiation treatment. d/c home with oxygen. smoking counseling done start on chantix BARBY MARIE MD DR: AUBREY/eda JOB#: [id number] / [id number] SELAM
== END 2020-06-16 19:30 | disposition home or self-care (01) | DRG 189 ==
LOC: ER 14:07 → ED HOLD 17:00 → 6 SOUTH 21:43
PROVIDERS: ADMIT Internal Medicine; ATTEND Internal Medicine
DX: J96.01 Acute respiratory failure with hypoxia (principal); J44.1 Chronic obstructive pulmonary disease with (acute) exacerbation; Z68.42 Body mass index [BMI] 45.0-49.9, adult; I50.32 Chronic diastolic (congestive) heart failure; J44.0 Chronic obstructive pulmonary disease with (acute) lower respiratory infection; E66.9 Obesity, unspecified; E78.5 Hyperlipidemia, unspecified; F17.210 Nicotine dependence, cigarettes, uncomplicated; I11.0 Hypertensive heart disease with heart failure; I25.10 Atherosclerotic heart disease of native coronary artery without angina pectoris; I48.91 Unspecified atrial fibrillation; Z96.612 Presence of left artificial shoulder joint; Z96.659 Presence of unspecified artificial knee joint; J20.9 Acute bronchitis, unspecified; G89.29 Other chronic pain; M19.90 Unspecified osteoarthritis, unspecified site; I25.2 Old myocardial infarction; Z85.118 Personal history of other malignant neoplasm of bronchus and lung; Z92.21 Personal history of antineoplastic chemotherapy; Z92.3 Personal history of irradiation; Z95.1 Presence of aortocoronary bypass graft; Z87.01 Personal history of pneumonia (recurrent); Z88.6 Allergy status to analgesic agent; Z88.5 Allergy status to narcotic agent; Z88.2 Allergy status to sulfonamides; Z88.8 Allergy status to other drugs, medicaments and biological substances; Z20.822 Contact with and (suspected) exposure to COVID-19
CPT/HCPCS: 36415; 71045; 80053; 80307; 81001; 83605; 83735; 83880; 84145; 84443; 84484; 85007; 85025; 85610; 85730; 87040; 87077; 87086; 87186; 87804; 93005; 94618; 96365; 96375; 99285; 99406; J0456; J0696; J1100; J1650; J1940; J7050; U0003; G0378; J7030

== ENCOUNTER → 2020-07-12 | Outpatient (CLI) | payer OTHER, MEDICAID ==
[2020-06-16 16:35] VITALS: BP 134/61
[~2020-07-12] MED LIST changes: +CONTRAST GIVEN. MC PRN; -DOXY-181 PO; +DOXY100C14 PO; +IOHEXOL 300 MG/ML 100ML VIAL. IV ONE; -MIRT-7 PO; +MIRT15TA3 PO; +VARE1TAB21 PO
[2020-07-12 13:55] LABS: BASO # 0.1 x10^3/uL (0.0-0.2); BASO % 1 % (0-3); EOS # 0.2 x10^3/uL (0.0-0.7); EOS % 3 % (0-3); HEMATOCRIT 33.9 % (36.0-47.0); HEMOGLOBIN 10.4 g/dL (12.0-15.5); LYMPH # 0.7 x10^3/uL (1.0-4.8); LYMPH % 10 % (24-48); MEAN CORPUSCULAR HEMOGLOBIN 24 pg (25-35); MEAN CORPUSCULAR HGB CONC 31 g/dL (31-37); MEAN CORPUSCULAR VOLUME 80 fL (79-100); MONO # 0.5 x10^3/uL (0.0-1.1); MONO % 7 % (0-9); NEUT # 4.9 x10^3/uL (1.8-7.7); NEUT % 78 % (31-73); PLATELET COUNT 294 x10^3/uL (140-400); RED BLOOD COUNT 4.26 x10^6/uL (3.50-5.40); RED CELL DISTRIBUTION WIDTH 18.5 % (11.5-14.5); WHITE BLOOD COUNT 6.3 x10^3/uL (4.0-11.0)
--- NOTE | 2020-07-13 12:07 | RAD ---
PQRS Compliance Statement: One or more of the following individualized dose reduction techniques were utilized for this examinat ion: 1. Automated exposure control 2. Adjustment of the mA and/or kV according to patient size 3. Use of iterative reconstruction technique CT THORAX W Clinical Indication: Reason: SMALL CELL LUNG CA / Comparison: CTA chest April 27, 2020. Technique: Helical CT imaging of the abdomen and pelvis is performed after 75 cc of Omnipaque 300 IV contrast. Oral contrast not administered. Findings: Thyroid is symmetric. There is coronary artery disease, changes of CABG. Median sternotomy, the brady um is not fused. There is no central pulmonary embolus. No thoracic aortic dissection. Cardiac size i s normal, no pericardial effusion. Right infrahilar mass measures approximately 4.7 cm AP by 3.4 cm transverse, previously 5.2 x 3.6 cm. Left pleural effusion has resolved. There is trace right pleural effusion, decreased from prior stud y. Mild upper lobe emphysema. Multiple surgical clips in the left upper abdomen. Adrenal glands are normal. Chronic compression fracture at the superior endplate of T6 is stable. IMPRESSION: 1. Right infrahilar mass is mildly smaller. 2. Trace right pleural effusion, decreased from prior study. Left pleural effusion is resolved. Electronically signed by: Kamron Juarez MD (07/13/2020 12:04 PM) [id number]
== END ==
LOC: CT 12:48
PROVIDERS: ATTEND Internal Medicine Hematology & Oncology
DX: C34.90 Malignant neoplasm of unspecified part of unspecified bronchus or lung (principal); D50.9 Iron deficiency anemia, unspecified; J90 Pleural effusion, not elsewhere classified; I25.10 Atherosclerotic heart disease of native coronary artery without angina pectoris
CPT/HCPCS: 36415; 71260; 82728; 83540; 83550; 85025; Q9967

== ENCOUNTER → 2020-08-04 | Outpatient (CLI) | payer OTHER, MEDICAID ==
[~2020-08-04] MED LIST changes: +BARIUM SULFATE 40% (APPLE) 148 GM PWD. PO ONE; -CONTRAST GIVEN. MC PRN; -IOHEXOL 300 MG/ML 100ML VIAL. IV ONE
--- NOTE | 2020-08-04 16:03 | RAD ---
Fluoroscopic swallow study without comparison for dysphagia. TECHNIQUE AND FINDINGS: Continuous videofluoroscopy was utilized to obtain images the patient consuming various consistencies of barium. Penetration producing cough was observed with thin barium, and was not alleviated with chin tuck maneuver. Please refer to the speech pathology report for detailed description of the findings. IMPRESSION: 1. Penetration producing a cough with thin barium. Please refer to speech pathology report for additional details. Fluoroscopy time: 3.1 minutes. Images: No static images were recorded, however continuous videofluoroscopy was utilized.
== END ==
LOC: RAD 12:44
PROVIDERS: ATTEND Internal Medicine
DX: T17.900A Unspecified foreign body in respiratory tract, part unspecified causing asphyxiation, initial encounter (principal); R13.10 Dysphagia, unspecified
CPT/HCPCS: 74230; 92526-GN; 92611-GN

== ENCOUNTER → 2020-10-29 | Outpatient (CLI) | payer OTHER, MEDICAID ==
[~2020-10-29] MED LIST changes: -BARIUM SULFATE 40% (APPLE) 148 GM PWD. PO ONE
[2020-10-29 14:22] LABS: BASO # 0.1 x10^3/uL (0.0-0.2); BASO % 1 % (0-3); EOS # 0.2 x10^3/uL (0.0-0.7); EOS % 2 % (0-3); HEMATOCRIT 42.4 % (36.0-47.0); HEMOGLOBIN 13.7 g/dL (12.0-15.5); LYMPH # 0.8 x10^3/uL (1.0-4.8); LYMPH % 10 % (24-48); MEAN CORPUSCULAR HEMOGLOBIN 28 pg (25-35); MEAN CORPUSCULAR HGB CONC 32 g/dL (31-37); MEAN CORPUSCULAR VOLUME 86 fL (79-100); MONO # 0.4 x10^3/uL (0.0-1.1); MONO % 5 % (0-9); NEUT # 6.5 x10^3/uL (1.8-7.7); NEUT % 82 % (31-73); PLATELET COUNT 280 x10^3/uL (140-400); RED BLOOD COUNT 4.93 x10^6/uL (3.50-5.40); RED CELL DISTRIBUTION WIDTH 19.9 % (11.5-14.5)
[2020-10-29 17:04] LABS: CALCIUM 8.6 mg/dL (8.5-10.1); CREATININE 0.9 mg/dL (0.6-1.0)
[2020-10-29 17:22] LABS: ALBUMIN 3.8 g/dL (3.4-5.0); ALBUMIN/GLOBULIN RATIO 1.1 (1.0-1.7); TOTAL BILIRUBIN 0.4 mg/dL (0.2-1.0); TOTAL PROTEIN 7.2 g/dL (6.4-8.2)
== END ==
LOC: ONCLAB 13:53
PROVIDERS: ATTEND Internal Medicine Hematology & Oncology
DX: C34.31 Malignant neoplasm of lower lobe, right bronchus or lung (principal); D51.9 Vitamin B12 deficiency anemia, unspecified
CPT/HCPCS: 80053; 82607; 82728; 82746; 83540; 83550; 83921; 85025

== ENCOUNTER → 2020-11-03 | Outpatient (CLI) | payer OTHER, MEDICAID ==
--- NOTE | 2020-11-03 14:47 | RAD ---
EXAM: Chest CT without intravenous contrast. HISTORY: Small cell lung cancer. TECHNIQUE: Computed tomographic images of the chest were obtained without contrast. Multiplanar refor matting was performed. *One or more of the following individualized dose reduction techniques were utilized for this examina tion: 1. Automated exposure control. 2. Adjustment of the mA and/or kV according to patient size. 3. Use of iterative reconstruction technique. COMPARISON: 07/12/2020. FINDINGS: There has been interval increase in masslike right hilar and perihilar soft tissue density with surrounding groundglass, consistent with known primary neoplasm and possible superimposed treatm ent changes. There has been interval increase in a small right pleural effusion. There is mild emphys tom. There is no pneumothorax. There is a 10 mm nodular opacity within the superior segment of the le ft lower lobe likely due to subsegmental atelectasis. There are few additional tiny peripheral and pl eural-based nodular opacities which are benign in appearance. The heart is mildly enlarged. There is evidence of prior CABG. There is aortic and aortic branch vess el atherosclerosis. The right hilar lymph nodes are obscured due to the aforementioned mass. There ar e stable nonspecific mediastinal lymph nodes. There is no acute finding involving the upper abdomen. There is no acute or suspicious osseous finding. There is a chronic moderate compression fracture wit h superior endplate Schmorl's node at T6. IMPRESSION: 1. Slight interval increase in masslike right hilar and perihilar soft tissue density with surroundin g groundglass, consistent with known primary neoplasm and suspected superimposed interval treatment c hanges. 2. Slight interval increase in a small right pleural effusion. 3. Emphysema. 4. Mild cardiomegaly and evidence of prior CABG. Electronically signed by: Alpa Larios MD (11/03/2020 2:44 PM) [id number]
== END ==
LOC: CT 12:34
PROVIDERS: ATTEND Internal Medicine Hematology & Oncology
DX: C34.31 Malignant neoplasm of lower lobe, right bronchus or lung (principal); J43.9 Emphysema, unspecified; J90 Pleural effusion, not elsewhere classified; I51.7 Cardiomegaly
CPT/HCPCS: 71250

== ENCOUNTER → 2020-12-10 | Outpatient (CLI) | payer OTHER, MEDICAID ==
[~2020-12-10] MED LIST changes: +DOXY-181 PO; -DOXY100C14 PO; +MIRT-7 PO; -MIRT15TA3 PO
[2020-12-10 13:48] LABS: BASO # 0.1 x10^3/uL (0.0-0.2); BASO % 1 % (0-3); EOS # 0.2 x10^3/uL (0.0-0.7); EOS % 2 % (0-3); HEMATOCRIT 39.5 % (36.0-47.0); HEMOGLOBIN 12.8 g/dL (12.0-15.5); LYMPH # 0.7 x10^3/uL (1.0-4.8); LYMPH % 8 % (24-48); MEAN CORPUSCULAR HEMOGLOBIN 28 pg (25-35); MEAN CORPUSCULAR HGB CONC 32 g/dL (31-37); MEAN CORPUSCULAR VOLUME 86 fL (79-100); MONO # 0.5 x10^3/uL (0.0-1.1); MONO % 5 % (0-9); NEUT # 7.3 x10^3/uL (1.8-7.7); NEUT % 84 % (31-73); PLATELET COUNT 284 x10^3/uL (140-400); RED BLOOD COUNT 4.59 x10^6/uL (3.50-5.40); RED CELL DISTRIBUTION WIDTH 17.1 % (11.5-14.5); WHITE BLOOD COUNT 8.7 x10^3/uL (4.0-11.0)
== END ==
LOC: ONCLAB 13:26
PROVIDERS: ATTEND Internal Medicine Hematology & Oncology
DX: C34.31 Malignant neoplasm of lower lobe, right bronchus or lung (principal)
CPT/HCPCS: 36415; 82728; 83540; 83550; 85025

== ENCOUNTER → 2021-03-21 | Outpatient (CLI) | payer OTHER, MEDICAID ==
[~2021-03-21] MED LIST changes: -CLIN150C15 PO; +CLIN150C16 PO; -DOXY100C2 PO; +DOXY100C3 PO; +ERYT1OIN3 EACHEYE; -ERYT1OIN6 EACHEYE; -QUET50TA PO; +QUET50TA3 PO
--- NOTE | 2021-03-21 17:10 | RAD ---
EXAM: CT OF THE CHEST WITHOUT CONTRAST. HISTORY: Small cell lung cancer. TECHNIQUE: Computed tomography of the chest was performed without intravenous contrast. One or more o f the following individualized dose reduction techniques were utilized for this examination: 1. Automated exposure control. 2. Adjustment of the mA and/or kV according to patient size. 3. Use of iterative reconstruction technique. COMPARISON: 11/03/2020. FINDINGS: Images of the upper abdomen reveal postoperative changes along the stomach. Bone windows re veal a moderate compression deformity at the superior endplate of T6, unchanged. There are no pathologically enlarged mediastinal or axillary lymph nodes. There is no pericardial eff usion. The heart is not enlarged. There are changes of coronary artery bypass grafting. The main pulm onary artery measures 3.8 cm. A small right pleural effusion is unchanged. Posttreatment fibrosis about the right hilum is unchange d. There is no clear recurrent mass. There is mild centrilobular and paraseptal emphysema in the apic es. IMPRESSION: 1. Stable posttreatment changes about the right hilum. No evidence of active disease. 2. Stable trace right pleural effusion. 3. Mild centrilobular and paraseptal emphysema. Enlargement of the central pulmonary arteries suggest s pulmonary arterial hypertension. 4. Stable moderate T6 compression deformity with a residual open fracture line at the superior endpla te. Electronically signed by: Suzanne Barry MD (03/21/2021 5:08 PM) [id number]
== END ==
LOC: CT 13:20
PROVIDERS: ATTEND Internal Medicine Hematology & Oncology
DX: C34.31 Malignant neoplasm of lower lobe, right bronchus or lung (principal); S22.050 Wedge compression fracture of T5-T6 vertebra; J43.2 Centrilobular emphysema; Z98.890 Other specified postprocedural states; X58.XXXA Exposure to other specified factors, initial encounter; Y93.89 Activity, other specified; Y92.89 Other specified places as the place of occurrence of the external cause; Y99.8 Other external cause status
CPT/HCPCS: 71250

== ENCOUNTER → 2021-04-08 | Outpatient (CLI) | payer OTHER, MEDICAID ==
[~2021-04-08] MED LIST changes: +AMIO200T53 PO; -AMIO200T6 PO
[2021-04-08 13:35] LABS: BASO # 0.1 x10^3/uL (0.0-0.2); BASO % 1 % (0-3); EOS # 0.4 x10^3/uL (0.0-0.7); EOS % 4 % (0-3); HEMATOCRIT 31.5 % (36.0-47.0); HEMOGLOBIN 9.7 g/dL (12.0-15.5); LYMPH # 0.7 x10^3/uL (1.0-4.8); LYMPH % 8 % (24-48); MEAN CORPUSCULAR HEMOGLOBIN 25 pg (25-35); MEAN CORPUSCULAR HGB CONC 31 g/dL (31-37); MEAN CORPUSCULAR VOLUME 81 fL (79-100); MONO # 0.8 x10^3/uL (0.0-1.1); MONO % 8 % (0-9); NEUT # 7.5 x10^3/uL (1.8-7.7); NEUT % 79 % (31-73); PLATELET COUNT 315 x10^3/uL (140-400); RED BLOOD COUNT 3.87 x10^6/uL (3.50-5.40); RED CELL DISTRIBUTION WIDTH 21.8 % (11.5-14.5); WHITE BLOOD COUNT 9.4 x10^3/uL (4.0-11.0)
[2021-04-08 13:49] LABS: CALCIUM 8.4 mg/dL (8.5-10.1); CREATININE 0.8 mg/dL (0.6-1.0); GFR 72.2; POTASSIUM 3.6 mmol/L (3.5-5.1)
[2021-04-08 14:08] LABS: ALBUMIN 2.6 g/dL (3.4-5.0); ALBUMIN/GLOBULIN RATIO 0.7 (1.0-1.7); TOTAL BILIRUBIN 0.2 mg/dL (0.2-1.0); TOTAL PROTEIN 6.4 g/dL (6.4-8.2)
[2021-04-08 14:35] LABS: PLT ESTIMATE ADEQUATE (ADEQUATE)
[2021-04-08 14:36] LABS: ANISOCYTOSIS PRESENT; POLYCHROMASIA PRESENT
== END ==
LOC: ONCLAB 13:16
PROVIDERS: ATTEND Internal Medicine Hematology & Oncology
DX: C34.31 Malignant neoplasm of lower lobe, right bronchus or lung (principal)
CPT/HCPCS: 36415; 80053; 82728; 83540; 83550; 85025

== ENCOUNTER 2021-09-15 14:39 | Emergency (ER) | payer OTHER, MEDICAID ==
[~2021-09-15] VITALS: Ht 167.6 cm; Wt 108.0 kg
[~2021-09-15 14:39] MED LIST changes: -OMEP20TA8 PO; +OMEP20TA91 PO
[2021-09-15 14:45] VITALS: BP 97/61
[2021-09-15] MEDS ORDERED: LIDOCAINE/EPI/TETRACAINE TOPICAL GEL 3 ML. TP ONE (15:15)
[2021-09-15] MEDS ORDERED: LIDOCAINE 1%/EPI 1:100,000 20 ML VIAL. INJ ONE (15:15)
--- NOTE | 2021-09-15 15:32 | PHYS DOC ---
Past Medical History Past Medical History: A-Fib, Anemia, CAD, Cancer, CHF, COPD, Hypertension, SD, Pneumonia, Other Additional Past Medical Histor: CARDIAC ISSUES,RADIATION/CHEMO FOR RIGHT LUNG CA,CHRONIC BACK PAIN,RVR Past Surgical History: Coronary Bypass Surgery, Knee Replacement, Other Additional Past Surgical Histo: LEFT SHOULDER REPLACEMENT Smoking Status: Former Smoker Alcohol Use: None Drug Use: None General Adult EDM: Chief Complaint: LACERATION/AVULSION HPI: HPI: Patient is a 66 year old female who presents to the ED today with left nixon laceration. Patient is on Eliquis for A. fib, she states she was getting out of her vehicle her right foot with shoes scratched her left nixon. Review of Systems: Review of Systems: Constitutional: Denies fever or chills. [] Musculoskeletal: Denies back pain or joint pain. [] Integument: reports left nixon laceration Neurologic: Denies headache, focal weakness or sensory changes. [] Psychiatric: Denies depression or anxiety. [] Heart Score: C/O Chest Pain: N/A Risk Factors: Risk Factors: DM, Current or recent (<one month) smoker, HTN, HLP, family history of CAD, obesity. Risk Scores: Score 0 - 3: 2.5% MACE over next 6 weeks - Discharge Home Score 4 - 6: 20.3% MACE over next 6 weeks - Admit for Clinical Observation Score 7 - 10: 72.7% MACE over next 6 weeks - Early Invasive Strategies Current Medications: Current Medications Medications (Trade) Dose Ordered Sig/[facility] Start Time Stop Time Status Last Admin Dose Admin Lidocaine/ Epinephrine (LIDOCAINE 1%-EPI 1:100,000 Multi-Dose) 20 ml 1X ONCE 09/15/21 15:15 09/15/21 15:17 DC Tetracaine/ Epinephrine/ Lidocaine (Let (Tctr-Hpfhhyz-Rhfup) Gel) 12 ml 1X ONCE 09/15/21 15:15 09/15/21 15:17 DC Allergies: Allergies: Allergies Coded Allergies Type Severity Reaction Last Updated Verified tramadol Allergy Severe Seizures 08/04/21 Yes Sulfa (Sulfonamide Antibiotics) Allergy Intermediate Itching & GI upset 08/04/21 Yes lorazepam Allergy Intermediate Hives 08/04/21 Yes propoxyphene napsylate Allergy Intermediate Hives & GI upset 08/04/21 Yes morphine Adverse Reaction Severe 08/04/21 Yes ibuprofen Adverse Reaction Intermediate NAUSEA/VOMITING 08/04/21 Yes Physical Exam: PE: Constitutional: Well developed, well nourished, no acute distress, non-toxic appearance. [] Skin: Left mid nixon with a skin tear roughly 8X4 cm slight bleeding continues, pressure applied to the area. Neurovascular exam is intact to the left lower extremity. Back: No tenderness, no CVA tenderness. [] Extremities: No tenderness, no cyanosis, no clubbing, ROM intact, no edema. [] Neurologic: Alert and oriented X 3, normal motor function, normal sensory function, no focal deficits noted. [] Psychologic: Affect normal, judgement normal, mood normal. [] Current Patient Data: Vital Signs: Vital Signs Date Time Temp Pulse Resp B/P (MAP) Pulse Ox O2 Delivery O2 Flow Rate FiO2 09/15/21 14:45 97.9 18 18 97/61 (73) 96 97.9 EKG: EKG: [] Radiology/Procedures: Radiology/Procedures: Laceration/Wound Repair Wound Location:left nixon Wound's Depth, Shape: V Wound Length (cm): 8x4cm Wound Explored: clean Irrigated w/ Saline (ccs): 100ml of NS Betadine Prep?: Y Anesthesia: 12 cc of let solution was used initially then 4 cc of lidocaine with epinephrine used later, bleeding completely stopped Wound Repaired With: Ethilon Suture Size/Type: 5.0 and 6.0/interrupted sutures Number of Sutures: 17 Progress : Wound was covered with nonstick dressing Course & Med Decision Making: Course & Med Decision Making Pertinent Labs and Imaging studies reviewed. (See chart for details) This a 66-year-old female patient on Eliquis presenting with left nixon laceration. Tetanus is up-to-date. Tetanus is up-to-date, laceration was closed by me as noted in procedures, wound care instructions and return precautions provided Irma Disclaimer: Irma Disclaimer: This electronic medical record was generated, in whole or in part, using a voice recognition dictation system. Departure Departure Impression: Primary Impression: Laceration of left lower leg Qualified Codes: S81.812A - Laceration without foreign body, left lower leg, initial encounter Disposition: HOME / SELF CARE / HOMELESS Condition: STABLE Referrals: BARBY MARIE MD (PCP) Please follow-up with your primary care doctor or the emergency room in 7 days for stitches Patient Instructions: Laceration Care, Adult Additional Instructions: You have a laceration on the left nixon that was closed with stitches. Keep the area clean and dry. You can wash the area once a day and apply Neosporin to the area twice a day. Remove the dressing in 24 hours, leave the area open to air if its not bleeding or draining. Monitor the area for any signs of infection including but not limited to increased redness, warmth, yellow drainage or any signs of infection return to the ED or see your doctor. Come back to the ED or see your doctor in 7 days for stitches to be removed MARILYN PURVIS APRN Sep 15, 2021 15:32
== END 2021-09-15 17:35 | disposition home or self-care (01) ==
LOC: ER 14:39
DX: S81.812A Laceration without foreign body, left lower leg, initial encounter (principal); I48.91 Unspecified atrial fibrillation; I25.10 Atherosclerotic heart disease of native coronary artery without angina pectoris; I11.0 Hypertensive heart disease with heart failure; I50.9 Heart failure, unspecified; I25.2 Old myocardial infarction; J44.9 Chronic obstructive pulmonary disease, unspecified; G89.29 Other chronic pain; Z95.1 Presence of aortocoronary bypass graft; Z87.891 Personal history of nicotine dependence; Z79.01 Long term (current) use of anticoagulants; Y28.8XXA Contact with other sharp object, undetermined intent, initial encounter; Y93.89 Activity, other specified; Y92.89 Other specified places as the place of occurrence of the external cause; Y99.8 Other external cause status
CPT/HCPCS: 12004; 99282